=== PATIENT | male | born 1965 | race Caucasian/White ===

== ENCOUNTER 2022-12-05 19:14 | Emergency (ER) | payer BC ==
[2022-12-05 20:13] LABS: Glucose,Whole Blood 103 mg/dL (70-110)
[2022-12-05 20:41] LABS: Basophils % (A) 0 %; Eosinophils % (A) 2 %; HCT 44.5 % (39.0-53.0); HGB 15.4 gm/dL (13.0-17.5); Lymphocytes % (A) 21 %; MCH 32.3 pg (25.0-35.0); MCHC 34.6 g/dL (31.0-37.0); MCV 93.3 fL (80.0-100.0); Mean Platelet Volume 9.2; Monocytes % (A) 6 %; Neutrophils # (A) 10.4 k/uL (1.3-7.7); Neutrophils % (A) 68 %; Platelet Count 228 k/uL (150-450); RBC 4.77 m/uL (4.30-5.90); RDW 13.2 % (11.5-15.5); WBC 15.3 k/uL (3.8-10.6)
[2022-12-05 20:42] LABS: Basophils # (A) 0.1 k/uL (0-0.2); Eosinophils # (A) 0.4 k/uL (0-0.7); Lymphocytes # (A) 3.2 k/uL (1.0-4.8); Monocytes # (A) 0.9 k/uL (0-1.0)
[2022-12-05 20:55] LABS: Partial Thromboplastin Time 24.8 sec (22.0-30.0); Prothrombin Time 10.3 sec (9.0-12.0)
[2022-12-05 20:56] LABS: ALT 14 U/L (4-49); AST 20 U/L (17-59); African American GFR (CKD) >90 (>60 ml/min/1.73 sqM); Albumin 4.5 g/dL (3.5-5.0); Alkaline Phosphatase 80 U/L (38-126); Anion Gap 12 mmol/L; Blood Urea Nitrogen 11 mg/dL (9-20); Calcium 9.9 mg/dL (8.4-10.2); Carbon Dioxide 23 mmol/L (22-30); Chloride 107 mmol/L (98-107); Glucose 101 mg/dL (74-99); Non-African American GFR(CKD) >90 (>60 ml/min/1.73 sqM); Potassium 4.2 mmol/L (3.5-5.1); Sodium 142 mmol/L (137-145); Total Bilirubin 0.9 mg/dL (0.2-1.3); Total Protein 7.3 g/dL (6.3-8.2)
--- NOTE | 2022-12-05 21:24 | ED ---
General Adult HPI - General Chief complaint: Altered Mental Status Stated complaint: confused Time Seen by Provider: 12/05/22 21:06 Source: patient, family, RN notes reviewed Mode of arrival: ambulatory Limitations: no limitations - History of Present Illness Initial comments: 57-year-old male with no significant past medical history presents the emergency department with a chief complaint of altered mental status. Patient reports feeling increased fatigue and feeling brain fog the last day. He denies any recent sick contacts. She denies any fever, chills, cough, headache, vision changes, vision loss, dysuria, hematuria. Patient denies any injury or trauma. Patient reports that he was at home with a couple and just feels off. - Related Data Previous Rx's Medication Instructions Recorded Ciprofloxacin HCl [Cipro] 500 mg PO Q12HR #20 tablet 12/06/22 Tamsulosin [Flomax] 0.4 mg PO DAILY #7 cap 12/06/22 Allergies Allergy/AdvReac Type Severity Reaction Status Date / Time No Known Allergies Allergy Verified 12/05/22 19:32 Review of Systems ROS Statement: Those systems with pertinent positive or pertinent negative responses have been documented in the HPI. ROS Other: All systems not noted in ROS Statement are negative. Past Medical History Past Medical History: No Reported History Past Surgical History: No Surgical Hx Reported Smoking Status: Current every day smoker Past Alcohol Use History: None Reported Past Drug Use History: None Reported General Exam - General Exam Comments Initial Comments: General: Alert, in no acute distress Head: atraumatic normocephalic. Eyes PERRL, EOMI intact, mucous membranes moist Respiratory: Lungs clear to auscultation bilaterally Cardiovascular: Heart rate regular rate and rhythm Abdominal: Soft without guarding or rebound Extremities: Normal inspection with full range of motion and normal capillary refill Neuroogic: alert and oriented 3, CN II-XII intact, able to ambulate with steady gait Skin: warm dry and intact with normal color Limitations: no limitations Course Vital Signs 12/05/22 12/05/22 12/06/22 19:29 21:55 00:08 Temperature 98.2 F 99.4 F Pulse Rate 64 65 71 Respiratory 22 18 18 Rate Blood Pressure 124/107 148/89 O2 Sat by Pulse 98 99 97 Oximetry - Reevaluation(s) Reevaluation #1: 12/06/22 00:02 Pt reevaluated and updated on all results. Patient encouraged to go home with urinary catheter however patient is refusing at this time. Patient will be giv en ABX and Flomax in the emergency department. EKG Findings - EKG Comments: EKG Findings:: I interpreted the following: EKG performed at 20:50 rate 52 bpm and sinus bradycardia MT interval 133, QRS duration 83, QT/QTc 460/441 Medical Decision Making - Medical Decision Making Was pt. sent in by a medical professional or institution (, TEGAN, MORTGAGE CLOSING CLERK, urgent care, hospital, or longterm...) When possible be specific @ -[No] Did you speak to anyone other than the patient for history (EMS, parent, family, police, friend...)? What history was obtained from this source @ -Mother Did you review nursing and triage notes (agree or disagree)? Why? @ -[I reviewed and agree with nursing and triage notes] Were old charts reviewed (outside hosp., previous admission, EMS record, old EKG, old radiological studies, urgent care reports/EKG's, longterm records)? Report findings @ -[No old charts were reviewed] Differential Diagnosis (chest pain, altered mental status, abdominal pain women, abdominal pain men, vaginal bleeding, weakness, fever, dyspnea, syncope, headache, dizziness, GI bleed, back pain, seizure, CVA, palpatations, mental health, musculoskeletal)? @ -[not applicable] EKG interpreted by me (3pts min.). @ -[As above] X-rays interpreted by me (1pt min.). @ -[None done] CT interpreted by me (1pt min.). @ -Yes U/S interpreted by me (1pt. min.). @ -[None done] What testing was considered but not performed or refused? (CT, X-rays, U/S, labs)? Why? @ -[None] What meds were considered but not given or refused? Why? @ -[None] Did you discuss the management of the patient with other professionals (professionals i.e. TEGAN Mills, MORTGAGE CLOSING CLERK, lab, RT, psych nurse, social studies department chair, lining marker, teacher, money position officer, case worker)? Give summary @ -[No] Was smoking cessation discussed for >3mins.? @ -[No] Was critical care preformed (if so, how long)? @ -[No] Were there social determinants of health that impacted care today? How? (Homelessness, low income, unemployed, alcoholism, drug addiction, transportation, low edu. Level, literacy, decrease access to med. care, snf, rehab)? @ -[No] Was there de-escalation of care discussed even if they declined (Discuss DNR or withdrawal of care, Hospice)? DNR status @ -[No] What co-morbidities impacted this encounter? (DM, HTN, Smoking, COPD, CAD, Cancer, CVA, ARF, Chemo, Hep., AIDS, mental health diagnosis, sleep apnea, morbid obesity)? @ -[None] Was patient admitted / discharged? Hospital course, mention meds given and route, prescriptions, significant lab abnormalities, going to OR and other pertinent info. @ Discharge. This is a pleasant 57-year-old male accompanied by mother who presents with altered mental status. Patient had a thorough history and physical exam performed on the ED. Physical exam essentially unremarkable. Patient is alert and oriented 3. No focal neuro deficits noted on exam. Patient able to translate with a steady gait move all extremities freely. Patient had laboratory studies which revealed WBC 15.3, hemoglobin 15.4 coordination studies unremarkable chemistry unremarkable 11, creatinine 0.56 initial troponin negative Urinalysis with MODERATE leukocyte esterase, 45 wbc's, many urine bacteria. Urine culture pending CT head does not reveal any intracranial process. I discussed the results in detail with the patient verbalized understanding all questions were addressed. Patient was provided 1 L IV fluids, Flomax, Cipro in the emergency department. He was offered STD prophylactic treatment however he declined at the time of evaluation. Patient encouraged to be discharged with [place] catheter however mother refusing at the time of discharge. Patient provided Flomax prescription and recommend close follow-up with Dr. Pena, urologist. Return precautions discussed at length. Patient discharged in stable condition. Case discussed with Dr.Roskopp [facility] who agrees with plan of care Undiagnosed new problem with uncertain prognosis? @ -[No] Drug Therapy requiring intensive monitoring for toxicity (Heparin, Nitro, Insulin, Cardizem)? @ -[No] Were any procedures done? @ -[No] Diagnosis/symptom? @ -Altered mental status - Urinary tract infection Acute, or Chronic, or Acute on Chronic? @ -Acute Uncomplicated (without systemic symptoms) or Complicated (systemic symptoms)? @ -Uncomplicated Side effects of treatment? @ -[No] Exacerbation, Progression, or Severe Exacerbation? @ -[No] Poses a threat to life or bodily function? How? (Chest pain, [place], [place], pneumonia, PE, COPD, DKA, ARF, appy, cholecystitis, CVA, Diverticulitis, Homicidal, Suicidal, threat to staff... and all critical care pts) @ -Low likelihood - Lab Data Result diagrams: 12/05/22 20:34 12/05/22 20:34 Lab Results 12/05/22 12/05/22 12/05/22 Range/Units 20:10 20:34 20:34 WBC 15.3 H (3.8-10.6) k/uL RBC 4.77 (4.30-5.90) m/uL Hgb 15.4 (13.0-17.5) gm/dL Hct 44.5 (39.0-53.0) % MCV 93.3 (80.0-100.0) fL MCH 32.3 (25.0-35.0) pg MCHC 34.6 (31.0-37.0) g/dL RDW 13.2 (11.5-15.5) % Plt Count 228 (150-450) k/uL MPV 9.2 Neutrophils % 68 % Lymphocytes % 21 % Monocytes % 6 % Eosinophils % 2 % Basophils % 0 % Neutrophils # 10.4 H (1.3-7.7) k/uL Lymphocytes # 3.2 (1.0-4.8) k/uL Monocytes # 0.9 (0-1.0) k/uL Eosinophils # 0.4 (0-0.7) k/uL Basophils # 0.1 (0-0.2) k/uL PT 10.3 (9.0-12.0) sec INR 1.0 (<1.2) APTT 24.8 (22.0-30.0) sec Sodium (137-145) mmol/L Potassium (3.5-5.1) mmol/L Chloride (98-107) mmol/L Carbon Dioxide (22-30) mmol/L Anion Gap mmol/L BUN (9-20) mg/dL Creatinine (0.66-1.25) mg/dL Est GFR (CKD-EPI)AfAm (>60 ml/min/1.73 sqM) Est GFR (CKD-EPI)NonAf (>60 ml/min/1.73 sqM) Glucose (74-99) mg/dL POC Glucose (mg/dL) 103 (70-110) mg/dL POC Glu Rn Travel ID Cheri Lewis Calcium (8.4-10.2) mg/dL Total Bilirubin (0.2-1.3) mg/dL AST (17-59) U/L ALT (4-49) U/L Alkaline Phosphatase (38-126) U/L Troponin I (0.000-0.034) ng/mL Total Protein (6.3-8.2) g/dL Albumin (3.5-5.0) g/dL Urine Color Urine Appearance (Clear) Urine pH (5.0-8.0) Ur Specific [place] (1.001-1.035) Urine Protein (Negative) Urine Glucose (UA) (Negative) Urine Ketones (Negative) Urine Blood (Negative) Urine Nitrite (Negative) Urine Bilirubin (Negative) Urine Urobilinogen (<2.0) mg/dL Ur Leukocyte Esterase (Negative) Urine RBC (0-5) /hpf Urine WBC (0-5) /hpf Ur Squamous Epith Cells (0-4) /hpf Urine Bacteria (None) /hpf Urine Mucus (None) /hpf Urine Opiates Screen (NotDetected) Ur Oxycodone Screen (NotDetected) Urine Methadone Screen (NotDetected) Ur Propoxyphene Screen (NotDetected) Ur Barbiturates Screen (NotDetected) U Tricyclic Antidepress (NotDetected) Ur Phencyclidine Scrn (NotDetected) Ur Amphetamines Screen (NotDetected) U Methamphetamines Scrn (NotDetected) U Benzodiazepines Scrn (NotDetected) Urine Cocaine Screen (NotDetected) U Marijuana (THC) Screen (NotDetected) 12/05/22 12/05/22 12/05/22 Range/Units 20:34 20:34 22:53 WBC (3.8-10.6) k/uL RBC (4.30-5.90) m/uL Hgb (13.0-17.5) gm/dL Hct (39.0-53.0) % MCV (80.0-100.0) fL MCH (25.0-35.0) pg MCHC (31.0-37.0) g/dL RDW (11.5-15.5) % Plt Count (150-450) k/uL MPV Neutrophils % % Lymphocytes % % Monocytes % % Eosinophils % % Basophils % % Neutrophils # (1.3-7.7) k/uL Lymphocytes # (1.0-4.8) k/uL Monocytes # (0-1.0) k/uL Eosinophils # (0-0.7) k/uL Basophils # (0-0.2) k/uL PT (9.0-12.0) sec INR (<1.2) APTT (22.0-30.0) sec Sodium 142 (137-145) mmol/L Potassium 4.2 (3.5-5.1) mmol/L Chloride 107 (98-107) mmol/L Carbon Dioxide 23 (22-30) mmol/L Anion Gap 12 mmol/L BUN 11 (9-20) mg/dL Creatinine 0.56 L (0.66-1.25) mg/dL Est GFR (CKD-EPI)AfAm >90 (>60 ml/min/1.73 sqM) Est GFR (CKD-EPI)NonAf >90 (>60 ml/min/1.73 sqM) Glucose 101 H (74-99) mg/dL POC Glucose (mg/dL) (70-110) mg/dL POC Glu Rn Travel ID Calcium 9.9 (8.4-10.2) mg/dL Total Bilirubin 0.9 (0.2-1.3) mg/dL AST 20 (17-59) U/L ALT 14 (4-49) U/L Alkaline Phosphatase 80 (38-126) U/L Troponin I <0.012 (0.000-0.034) ng/mL Total Protein 7.3 (6.3-8.2) g/dL Albumin 4.5 (3.5-5.0) g/dL Urine Color Yellow Urine Appearance Cloudy (Clear) Urine pH 5.5 (5.0-8.0) Ur Specific [place] 1.023 (1.001-1.035) Urine Protein Trace H (Negative) Urine Glucose (UA) Negative (Negative) Urine Ketones 1+ H (Negative) Urine Blood Negative (Negative) Urine Nitrite Positive (Negative) Urine Bilirubin Negative (Negative) Urine Urobilinogen <2.0 (<2.0) mg/dL Ur Leukocyte Esterase Moderate H (Negative) Urine RBC 1 (0-5) /hpf Urine WBC 45 H (0-5) /hpf Ur Squamous Epith Cells 4 (0-4) /hpf Urine Bacteria Many H (None) /hpf Urine Mucus Occasional H (None) /hpf Urine Opiates Screen Not Detected (NotDetected) Ur Oxycodone Screen Not Detected (NotDetected) Urine Methadone Screen Not Detected (NotDetected) Ur Propoxyphene Screen Not Detected (NotDetected) Ur Barbiturates Screen Not Detected (NotDetected) U Tricyclic Antidepress Not Detected (NotDetected) Ur Phencyclidine Scrn Not Detected (NotDetected) Ur Amphetamines Screen Not Detected (NotDetected) U Methamphetamines Scrn Not Detected (NotDetected) U Benzodiazepines Scrn Not Detected (NotDetected) Urine Cocaine Screen Not Detected (NotDetected) U Marijuana (THC) Screen Detected H (NotDetected) Disposition Clinical Impression: Urinary tract infection, Altered mental status Disposition: HOME SELF-CARE Condition: Stable Instructions (If sedation given, give patient instructions): Altered Mental Status (ED) Additional Instructions: Please take antibiotics as prescribed Please return to the nearest emergency department symptoms worsen or persist Prescriptions: Ciprofloxacin HCl [Cipro] 500 mg PO Q12HR #20 tablet Tamsulosin [Flomax] 0.4 mg PO DAILY #7 cap Is patient prescribed a controlled substance at d/c from ED?: No Referrals: None,Stated [Primary Care Provider] - 1-2 days Joshua Stoner MD [STAFF PHYSICIAN] - 1-2 days Forms: Work/School Release Time of Disposition: 23:43
--- NOTE | 2022-12-05 21:56 | CT ---
EXAMINATION TYPE: CT brain wo con DATE OF EXAM: 12/05/2022 HISTORY: AMS, confusion CT DLP: 1139.4 mGycm. Automated Exposure Control for Dose Reduction was Utilized. TECHNIQUE: CT scan of the head is performed without contrast. COMPARISON: None. FINDINGS: There is no acute intracranial hemorrhage or midline shift identified. No definite acute at tenuation defect. The calvarium is intact. The globes are intact. Bilateral partial opacification of the maxillary sinuses; the paranasal sinuses are otherwise clear. The right middle ear cavity and mastoid sinus air cells are clear. There is partial opacification of the left middle ear cavity and mastoid sinus air cells. IMPRESSION: No acute intracranial process. Partial opacification of the left middle ear cavity. Bilateral partial opacification of the maxillary sinuses.
[2022-12-05 22:07] VITALS: RESP 18
[2022-12-05 23:19] LABS: Appearance,Urine Cloudy (Clear); Bacteria,Urine Many /hpf; Bilirubin,Urine Negative (Negative); Blood,Urine Negative (Negative); Color,Urine Yellow; Glucose,Urine (UA) Negative (Negative); Ketones,Urine 1+ (Negative); Leukocyte Esterase,Urine Moderate (Negative); Mucus,Urine Occasional /hpf; Nitrite,Urine Positive (Negative); PH, Urine 5.5 (5.0-8.0); Protein,Urine Trace (Negative); RBC,Urine 1 /hpf (0-5); Specific Gravity,Urine 1.023 (1.001-1.035); Squamous Epithelial Cell,Urine 4 /hpf (0-4); Urobilinogen,Urine <2.0 mg/dL (<2.0); WBC,Urine 45 /hpf (0-5)
[2022-12-05 23:23] LABS: Amphetamine Screen,Urine Not Detected (NotDetected); Barbiturate Screen,Urine Not Detected (NotDetected); Benzodiazepines Screen,Urine Not Detected (NotDetected); Cocaine Screen,Urine Not Detected (NotDetected); Methadone Screen, Urine Not Detected (NotDetected); Opiate Screen,Urine Not Detected (NotDetected); Oxycodone Screen, Urine Not Detected (NotDetected); Phencyclidine Screen,Urine Not Detected (NotDetected); Tricyclic Antidepressant,Urine Not Detected (NotDetected); Urn Cannabinoid Scrn Detected (NotDetected)
[2022-12-06] MEDS ORDERED: TAMSULOSIN 0.4 MG CAP.ER.24H PO STA (00:01)
[2022-12-06] MEDS ORDERED: CIPROFLOXACIN HCL 500 MG TAB PO STA (00:01)
[2022-12-06 00:23] VITALS: BP 148/89; PULSE 71; TEMP 99.4
== END 2022-12-06 00:20 | disposition home or self-care (01) ==
LOC: EC 19:14
DX: N39.0 Urinary tract infection, site not specified (principal); R41.82 Altered mental status, unspecified; R00.1 Bradycardia, unspecified; F17.200 Nicotine dependence, unspecified, uncomplicated
CPT/HCPCS: 36415; 70450; 80053; 80306; 81001; 84484; 85025; 85610; 85730; 87086; 93005; 99285

== ENCOUNTER 2022-12-14 17:48 | Emergency (ER) | payer BC ==
[2022-12-14 18:11] VITALS: RESP 18
--- NOTE | 2022-12-14 19:16 | ED ---
General Adult HPI - General Source: patient Mode of arrival: ambulatory Limitations: no limitations <Ga Miller - Last Filed: 12/15/22 04:33> <Hira Daniels - Last Filed: 12/15/22 10:34> - General Chief complaint: Psychiatric Symptoms Stated complaint: Mental Health Time Seen by Provider: 12/14/22 18:38 - History of Present Illness Initial comments: 57-year-old male with a history of developmental delay presenting to the ED with a chief complaint of psych problem. Patient discharged on 12/13/22. Review of notes at that time shows patient was evaluated from psych who initially recommended inpatient psychiatry however later declined due to underlying cognitive impairment and feeling as if the patient does not have decision making capacity. However, patient was also evaluated by Dr. Lopez of neurology who notes that patient is highly functional and feels patient is ableto have his own decision making capacity. Patient was then subsequently discharged and was supposed to have outpatient [facility] appointment on 12/16/22. Patient presenting again today with mother who reports that the patient has been acting erratically. States that the patient is saying things that are not usual of him. States that when she saw the patient today was found on the back porch crying. Patiently currently denies any suicidal or homicidal ideation however patient did note to triage nurse that he didn't feel suicidal week ago and tried to hold his breath to kill himself. Mother reports that she does not feel safe going back home with him. Denies hallucinations. No chest pain or shortness of breath. No abdominal pain. No urinary symptoms. Note changes in bowel habits. No other complaints. (Ga Miller) - Related Data Previous Rx's Medication Instructions Recorded Cyanocobalamin (Vitamin B-12) 1,000 mcg PO DAILY #30 tablet 12/13/22 [Vitamin B-12] Folic Acid 1 mg PO DAILY #30 tablet 12/13/22 risperiDONE [RisperDAL] 1 mg PO BID #60 tablet 12/13/22 Allergies Allergy/AdvReac Type Severity Reaction Status Date / Time No Known Allergies Allergy Verified 12/14/22 17:57 Review of Systems ROS Other: All systems not noted in ROS Statement are negative. <Ga Miller - Last Filed: 12/15/22 04:33> ROS Other: All systems not noted in ROS Statement are negative. <Hira Daniels - Last Filed: 12/15/22 10:34> ROS Statement: Those systems with pertinent positive or pertinent negative responses have been documented in the HPI. Past Medical History Past Medical History: No Reported History Additional Past Medical History / Comment(s): UTI, Urinary retention History of Any Multi-Drug Resistant Organisms: None Reported Past Surgical History: No Surgical Hx Reported Past Psychological History: Bipolar, Depression Smoking Status: Current every day smoker Past Alcohol Use History: None Reported Past Drug Use History: None Reported <Ga Miller - Last Filed: 12/15/22 04:33> General Exam Limitations: no limitations General appearance: alert, in no apparent distress Eye exam: Present: normal appearance Neck exam: Present: normal inspection Respiratory exam: Present: normal lung sounds bilaterally Cardiovascular Exam: Present: regular rate, normal rhythm GI/Abdominal exam: Present: soft (No tenderness to palpation. no rebound guardi ng or rigidity.), normal bowel sounds Neurological exam: Present: alert, oriented X3 <Ga Miller - Last Filed: 12/15/22 04:33> Course Vital Signs 12/14/22 12/15/22 17:52 01:08 Temperature 98.5 F 97.3 F L Pulse Rate 105 H 67 Respiratory 18 18 Rate Blood Pressure 142/94 130/72 O2 Sat by Pulse 96 98 Oximetry Medical Decision Making <Ga Miller - Last Filed: 12/15/22 04:33> <Hira Daniels - Last Filed: 12/15/22 10:34> - Medical Decision Making Was pt. sent in by a medical professional or institution (, PA, M48 M60 ARMOR CREWMAN, urgent care, hospital, or fci...) When possible be specific @ -No Did you speak to anyone other than the patient for history (EMS, parent, family, police, friend...)? What history was obtained from this source @ -No Did you review nursing and triage notes (agree or disagree)? Why? @ -I reviewed and agree with nursing and triage notes Were old charts reviewed (outside hosp., previous admission, EMS record, old EKG, old radiological studies, urgent care reports/EKG's, fci records)? Report findings @ -No old charts were reviewed Differential Diagnosis (chest pain, altered mental status, abdominal pain women, abdominal pain men, vaginal bleeding, weakness, fever, dyspnea, syncope, headache, dizziness, GI bleed, back pain, seizure, CVA, palpatations, mental health, musculoskeletal)? @ -Differential Mental Health Depression, anxiety, bipolar, psychosis, schizophrenia, borderline personality, situational depression, adjustment disorder, behavioral disorder, brain tumor, malingering, substance abuse, encephalopathy, medication reaction, dementia, hypothyroidism, degenerative neurologic disorder, lupus.... This is not meant to be all-inclusive list EKG interpreted by me (3pts min.). @ -None X-rays interpreted by me (1pt min.). @ -None done CT interpreted by me (1pt min.). @ -None done U/S interpreted by me (1pt. min.). @ -None done What testing was considered but not performed or refused? (CT, X-rays, U/S, labs)? Why? @ -None What meds were considered but not given or refused? Why? @ -None Did you discuss the management of the patient with other professionals (professionals i.e. , PA, M48 M60 ARMOR CREWMAN, lab, RT, psych nurse, web content & social media manager, compensator worker, teacher, service officer, registered nurse hh case manager)? Give summary @ -No Was smoking cessation discussed for >3mins.? @ -No Was critical care preformed (if so, how long)? @ -No Were there social determinants of health that impacted care today? How? (Homelessness, low income, unemployed, alcoholism, drug addiction, transportation, low edu. Level, literacy, decrease access to med. care, retirement, rehab)? @ -No Was there de-escalation of care discussed even if they declined (Discuss DNR or withdrawal of care, Hospice)? DNR status @ -No What co-morbidities impacted this encounter? (DM, HTN, Smoking, COPD, CAD, Cancer, CVA, ARF, Chemo, Hep., AIDS, mental health diagnosis, sleep apnea, morbid obesity)? @ -None Was patient admitted / discharged? Hospital course, mention meds given and route, prescriptions, significant lab abnormalities, going to OR and other pertinent info. @ -Pending Disposition of patient pending EPS evaluation. Patient will be evaluated tomorrow. At this time, medically cleared. ([place]) Patient seen by mental health services with plan for discharge I did discuss case with Silvina for mental health services who does recommend discharge. Patient evaluated. Patient denies suicidal ideation and does contract for safety. Diagnosis: Depression Acute (Hira Daniels) Disposition <Ga Miller - Last Filed: 12/15/22 04:33> Is patient prescribed a controlled substance at d/c from ED?: No Time of Disposition: 10:34 <Hira Daniels - Last Filed: 12/15/22 10:34> Clinical Impression: Depression Disposition: HOME SELF-CARE Condition: Stable Instructions (If sedation given, give patient instructions): Depression (ED), Help Prevent Suicide (ED) Additional Instructions: Please follow-up with primary care physician in the next day or 2 for recheck. Please follow-up with mental health services as directed. Return for thoughts of self-harm, worsening symptoms or other concerns. Referrals: Gonzalo Howard MD [STAFF PHYSICIAN] - 1-2 days
[2022-12-15 01:23] VITALS: TEMP 97.3
[2022-12-15 11:07] VITALS: BP 137/84; PULSE 68
== END 2022-12-15 11:01 | disposition home or self-care (01) ==
LOC: EC 17:48
DX: F32.A Depression, unspecified (principal); F17.200 Nicotine dependence, unspecified, uncomplicated
CPT/HCPCS: 82075; 99285

== ENCOUNTER 2022-12-17 14:48 | Inpatient (IN) | payer BC ==
--- NOTE | 2022-12-17 19:46 | ED ---
Psych HPI - General Source: patient, RN notes reviewed, old records reviewed Mode of arrival: ambulatory Limitations: no limitations - History of Present Illness MD Complaint: altered mental status -: unknown Associated Psychiatric Symptoms: homicidal ideation, racing thoughts, auditory hallucinations, visual hallucinations, delusions Quality: constant Improves With: none Worsens With: none Context: not taking psychiatric medications, significant life stressor Associated Symptoms: denies other symptoms Treatments Prior to Arrival: placed on mental health hold <Himanshu Tran - Last Filed: 12/17/22 22:02> <Kiel Castillo - Last Filed: 12/18/22 00:33> <Dom Carmen - Last Filed: 12/18/22 13:15> - General Chief Complaint: Psychiatric Symptoms Stated Complaint: Mental Health Time Seen by Provider: 12/17/22 18:08 - History of Present Illness Initial Comments: This is a 57-year-old male to the emergency department for evaluation. Patient Dese for evaluation of significant psychosis. Patient has been recently this significant psychiatric illness with multiple ER visits in the past week. Patient refuses to participate in history of present illness here in the ER (Himanshu Tran) - Related Data Previous Rx's Medication Instructions Recorded Cyanocobalamin (Vitamin B-12) 1,000 mcg PO DAILY #30 tablet 12/13/22 [Vitamin B-12] Folic Acid 1 mg PO DAILY #30 tablet 12/13/22 risperiDONE [RisperDAL] 1 mg PO BID #60 tablet 12/13/22 Allergies Allergy/AdvReac Type Severity Reaction Status Date / Time No Known Allergies Allergy Verified 12/17/22 15:02 Review of Systems ROS Other: All systems not noted in ROS Statement are negative. <Himanshu Tran - Last Filed: 12/17/22 22:02> ROS Other: All systems not noted in ROS Statement are negative. <Kiel Castillo - Last Filed: 12/18/22 00:33> ROS Other: All systems not noted in ROS Statement are negative. <Dom Carmen - Last Filed: 12/18/22 13:15> ROS Statement: Those systems with pertinent positive or pertinent negative responses have been documented in the HPI. Past Medical History Past Medical History: No Reported History Additional Past Medical History / Comment(s): UTI, Urinary retention History of Any Multi-Drug Resistant Organisms: None Reported Past Surgical History: No Surgical Hx Reported Past Psychological History: Bipolar, Depression Smoking Status: Current every day smoker Past Alcohol Use History: None Reported Past Drug Use History: None Reported <Himanshu Tran - Last Filed: 12/17/22 22:02> General Exam Limitations: no limitations General appearance: alert, in no apparent distress Head exam: Present: atraumatic, normocephalic, normal inspection Eye exam: Present: normal appearance, PERRL, EOMI. Absent: scleral icterus, conjunctival injection, periorbital swelling ENT exam: Present: normal exam, mucous membranes moist Neck exam: Present: normal inspection. Absent: tenderness, meningismus, lymphadenopathy Respiratory exam: Present: normal lung sounds bilaterally. Absent: respiratory distress, wheezes, rales, rhonchi, stridor Cardiovascular Exam: Present: regular rate, normal rhythm, normal heart sounds. Absent: systolic murmur, diastolic murmur, rubs, gallop, clicks GI/Abdominal exam: Present: soft, normal bowel sounds. Absent: distended, tenderness, guarding, rebound, rigid Extremities exam: Present: normal inspection, full ROM, normal capillary refill. Absent: tenderness, pedal edema, joint swelling, calf tenderness Back exam: Present: normal inspection Neurological exam: Present: alert, oriented X3, CN II-XII intact Psychiatric exam: Present: normal affect, normal mood Skin exam: Present: warm, dry, intact, normal color. Absent: rash <Himanshu Tran - Last Filed: 12/17/22 22:02> Course <Himanshu Tran - Last Filed: 12/17/22 22:02> Vital Signs 12/17/22 12/18/22 15:02 12:00 Temperature 98.9 F Pulse Rate 90 67 Respiratory 18 16 Rate Blood Pressure 116/64 123/83 O2 Sat by Pulse 97 97 Oximetry - Reevaluation(s) Reevaluation #1: 12/17/22 22:03 Medical record is reviewed (Himanshu Tran) Reevaluation #2: 12/17/22 22:03 Medically clear for psychiatric evaluation (Himanshu Tran) Procedures - Restraint - Face to Face Restraint Occurrence 1 Patient's Immediate Situation: Endangers self safety, Endangers others' safety Patient's Reaction to the Intervention: Uncooperative Patient's Medical & Behavioral Condition: Alert, Agitated Need to Continue or Terminate Restraint or Seclusion: Continue Face to Face Eval of Restraint Date: 12/17/22 Face to Face Eval of Restraint Time: 21:30 <Kiel Castillo - Last Filed: 12/18/22 00:33> Disposition <Himanshu Tran - Last Filed: 12/17/22 22:02> <Kiel Castillo - Last Filed: 12/18/22 00:33> Is patient prescribed a controlled substance at d/c from ED?: No Time of Disposition: 13:15 <Dom Carmen - Last Filed: 12/18/22 13:15> Clinical Impression: Psychosis, Depression Disposition: ADMITTED IP TO THIS HOSP Condition: Stable Referrals: None,Stated [Primary Care Provider] - 1-2 days
[2022-12-18] MEDS ORDERED: MAG HYDROX/AL HYDROX/SIMETH 30 ML CUP PO PRN (17:29)
[2022-12-18] MEDS ORDERED: MAGNESIUM HYDROXIDE 2,400 MG/30 ML CUP PO PRN (17:29)
[2022-12-18] MEDS ORDERED: ACETAMINOPHEN TAB 325 MG TAB PO PRN (17:29)
[2022-12-18] MEDS ORDERED: LORazepam 2 MG/ML INJ IM PRN (17:31)
[2022-12-18] MEDS ORDERED: LORazepam 0.5 MG TAB PO PRN (17:31)
[2022-12-18] MEDS ORDERED: OLANZapine 10 MG VIAL IM PRN (17:31)
[2022-12-18] MEDS: OLANZapine 5 MG TAB PO PRN (20:39)
[2022-12-19] MEDS: NICOTINE 14MG/24HR PATCH TRANSDERM SCH (08:18)
[2022-12-19] MEDS: FOLIC ACID 1 MG TAB PO SCH (08:18)
[2022-12-19 10:36] LABS: Basophils # (A) 0.1 k/uL (0-0.2); Basophils % (A) 1 %; Eosinophils # (A) 0.5 k/uL (0-0.7); Eosinophils % (A) 5 %; HGB 15.2 gm/dL (13.0-17.5); Lymphocytes % (A) 31 %; MCH 32.6 pg (25.0-35.0); MCHC 34.6 g/dL (31.0-37.0); MCV 94.3 fL (80.0-100.0); Mean Platelet Volume 8.6; Monocytes # (A) 0.7 k/uL (0-1.0); Monocytes % (A) 7 %; Neutrophils # (A) 5.3 k/uL (1.3-7.7); Neutrophils % (A) 55 %; Platelet Count 234 k/uL (150-450); RBC 4.66 m/uL (4.30-5.90); RDW 12.4 % (11.5-15.5); WBC 9.8 k/uL (3.8-10.6)
[2022-12-19 10:57] LABS: ALT 20 U/L (4-49); AST 20 U/L (17-59); African American GFR (CKD) >90 (>60 ml/min/1.73 sqM); Albumin 4.2 g/dL (3.5-5.0); Alkaline Phosphatase 64 U/L (38-126); Anion Gap 9 mmol/L; Blood Urea Nitrogen 15 mg/dL (9-20); Carbon Dioxide 28 mmol/L (22-30); Chloride 105 mmol/L (98-107); Glucose 86 mg/dL (74-99); Non-African American GFR(CKD) >90 (>60 ml/min/1.73 sqM); Potassium 4.9 mmol/L (3.5-5.1); Sodium 142 mmol/L (137-145); Total Bilirubin 0.6 mg/dL (0.2-1.3)
--- NOTE | 2022-12-19 14:05 | P.HP ---
Psychiatric H&P - . H&P Date: 12/19/22 History & Physical: Allergies Allergy/AdvReac Type Severity Reaction Status Date / Time No Known Allergies Allergy Verified 12/18/22 13:36 Vital Signs Temp 98.5 F 12/18/22 17:50 Pulse 56 L 12/18/22 17:50 Resp 16 12/18/22 17:50 BP 159/75 12/18/22 17:50 Pulse Ox 97 12/18/22 12:00 FiO2 Laboratory Last Values WBC 9.8 k/uL (3.8-10.6) 12/19/22 09:56 RBC 4.66 m/uL (4.30-5.90) 12/19/22 09:56 Hgb 15.2 gm/dL (13.0-17.5) 12/19/22 09:56 Hct 44.0 % (39.0-53.0) 12/19/22 09:56 MCV 94.3 fL (80.0-100.0) 12/19/22 09:56 MCH 32.6 pg (25.0-35.0) 12/19/22 09:56 MCHC 34.6 g/dL (31.0-37.0) 12/19/22 09:56 RDW 12.4 % (11.5-15.5) 12/19/22 09:56 Plt Count 234 k/uL (150-450) 12/19/22 09:56 MPV 8.6 12/19/22 09:56 Neutrophils % 55 % 12/19/22 09:56 Lymphocytes % 31 % 12/19/22 09:56 Monocytes % 7 % 12/19/22 09:56 Eosinophils % 5 % 12/19/22 09:56 Basophils % 1 % 12/19/22 09:56 Neutrophils # 5.3 k/uL (1.3-7.7) 12/19/22 09:56 Lymphocytes # 3.0 k/uL (1.0-4.8) 12/19/22 09:56 Monocytes # 0.7 k/uL (0-1.0) 12/19/22 09:56 Eosinophils # 0.5 k/uL (0-0.7) 12/19/22 09:56 Basophils # 0.1 k/uL (0-0.2) 12/19/22 09:56 Sodium 142 mmol/L (137-145) 12/19/22 09:56 Potassium 4.9 mmol/L (3.5-5.1) 12/19/22 09:56 Chloride 105 mmol/L (98-107) 12/19/22 09:56 Carbon Dioxide 28 mmol/L (22-30) 12/19/22 09:56 Anion Gap 9 mmol/L 12/19/22 09:56 BUN 15 mg/dL (9-20) 12/19/22 09:56 Creatinine 0.58 mg/dL (0.66-1.25) L 12/19/22 09:56 Est GFR (CKD-EPI)AfAm >90 (>60 ml/min/1.73 sqM) 12/19/22 09:56 Est GFR (CKD-EPI)NonAf >90 (>60 ml/min/1.73 sqM) 12/19/22 09:56 Glucose 86 mg/dL (74-99) 12/19/22 09:56 Calcium 10.0 mg/dL (8.4-10.2) 12/19/22 09:56 Total Bilirubin 0.6 mg/dL (0.2-1.3) 12/19/22 09:56 AST 20 U/L (17-59) 12/19/22 09:56 ALT 20 U/L (4-49) 12/19/22 09:56 Alkaline Phosphatase 64 U/L (38-126) 12/19/22 09:56 Total Protein 7.0 g/dL (6.3-8.2) 12/19/22 09:56 Albumin 4.2 g/dL (3.5-5.0) 12/19/22 09:56 TSH 1.530 mIU/L (0.465-4.680) 12/19/22 09:56 Coronavirus (PCR) Not Detected (Not Detectd) 12/18/22 16:04 12/19/22 12:36 IDENTIFYING DATA: Patient is a 37-year-old male, currently homeless HPI: Patient presented to the hospital yesterday and was seen in the ER. Apparently patient was having altered mental status homicidal ideations auditory and visual hallucinations. Patient was apparently seen multiple times in the ER recently. Patient was uncooperative and was also in restraints in the ER. Patient was admitted to the mental health unit yesterday and apparently signed voluntary. Patient correctly knew his name H He was [facility] knew the correct date. He came was seen laying in his bed today was agreeable lead technical writer. He appeared to be fairly concrete, states that he came in "because I'm homeless". He was mumbling and somewhat worried and coherent. He claims that he needs help "with everything". He claims that he has been having "bad mental health". He states that he has been feeling depressed and angry/mouth, endorsing anxiety as well. He is endorsing mood swings. Claims that he is hearing voices however did not describe what they are saying to him. Claims that his sleep has been on and off, appetite is fair. Denying any visual hallucinations.Patient denies any suicidal or h omicidal ideations intent or plan. Patient denies any flight of ideas racing thoughts and increased in goal directed behavior. Patient admits to using cigarettes regularly and marijuana frequently. PAST PSYCHIATRIC HISTORY: Patient states that he has no previous psychiatric history. Patient denies being on any psychiatric medications. Patient denies any previous psychiatric hospitalizations. Patient denies any psychiatric outpatient follow-up. Patient denies any history of suicide attempts in the past. Past Medical History: No Reported History Additional Past Medical History / Comment(s): UTI, Urinary retention History of Any Multi-Drug Resistant Organisms: None Reported Past Surgical History: No Surgical Hx Reported Past Psychological History: Bipolar, Depression Smoking Status: Current every day smoker Past Alcohol Use History: None Reported Past Drug Use History: None Reported ALLERGIES: as per EMR CHEMICAL DEPENDENCY HISTORY: as per HPI FAMILY PSYCHIATRIC/SUBSTANCE USE HISTORY: denies SOCIAL HISTORY: Patient was born and raised in [facility]. He states that he completed high school. States that he is currently homeless at this time. He claims that he went to long term for a "misdemeanor" several years ago. MENTAL STATUS EXAM: General Appearance: Patient appears to be mildly overweight, balding, stated age is alert, directable, and attempts to cooperate. Patient appears to have poor hygiene and grooming. Behavior: Patient is seated without any agitated behavior. Attempts to cooperate Speech: Patient's speech is mumbling and at times incoherent Mood/Affect: Patient reports their mood is depressed, affect is congruent and constricted. Suicidality/Homicidality: Patient denies having any homicidal ideation intent or plan. Denies any suicidal ideations intent or plan Perceptions: Patient denies any visual hallucinations he admits to hearing voices. Though content/process: Mumbling, rambling at times. Illogical. Memory and concentration: AOX3, grossly intact for the purposes of this session. Can spell "WORLD" backwards Judgment and insight: poor STRENGTHS/WEAKNESSES: strength is that patient is resilient. Weakness is that patient has poor judgment and is impulsive INTELLECT: average IMPRESSIONS: Psychosis unspecified r/o intellecutal disability Nicotine dependence Cannabis use disorder PLAN: -Patient is admitted under voluntary status to MHU for stabilization of psychiatric symptoms and safety. Patient has signed adult voluntary form and medication consent and is placed in patient's chart. -Medications : Zyprexa 5 mg daily at bedtime for mood stabilization/psychosis/sleep, Zoloft 50 mg daily at bedtime for mood/anxiety -zyprexa PRN for agitation/aggression -Patient was informed of the risks, benefits and side effects of the medication and patient verbally consented to taking the medications. Patient signed med consent form and was placed in chart. -Internal Medicine consult to perform medical evaluation and physical. -NRT - nicotine patch -SW on board for discharge planning. Encourage patient to participate in groups to work on coping skills. 12/19/22 12:47 12/19/22 14:00
[2022-12-19 14:16] VITALS: BMI 38.7
[2022-12-19] MEDS: SERTRALINE 50 MG TAB PO SCH (20:32)
[2022-12-19] MEDS: OLANZapine 5 MG TAB PO SCH (20:32)
[2022-12-20] MEDS: FOLIC ACID 1 MG TAB PO SCH (07:47)
[2022-12-20] MEDS: NICOTINE 14MG/24HR PATCH TRANSDERM SCH (08:24)
--- NOTE | 2022-12-20 13:25 | P.PN ---
Progress Note - Text Progress Note Date: 12/20/22 Interval history: patient was seen today and was agreeable to speak to senior copywriter. Patient claims t hat he slept fairly last July. He continues to have very poor insight and judgment. He was fairly concrete today and got into not elaborate much on how he is feeling. He redirected some questions back at senior copywriter. He is fairly evasive at times during the conversation. He was not endorsing any paranoia or delusions at this time. Claims that he is eating meals. He is not interested in going to many groups. Continues to state that he is feeling somewhat depressed. He is denying any suicidal or homicidal ideations intent or plan. Denying any auditory or visual hallucinations. Denying any side effects from medications. Mental status examination: General Appearance: Patient appears to be mildly overweight, balding, stated age is alert, directable, and attempts to cooperate. Patient appears to have mildly improving hygiene and grooming. Behavior: Patient is seated without any agitated behavior. Attempts to cooperate Speech: Patient's speech is mumbling at times, improving mildly Mood/Affect: Patient reports their mood is depressed, affect is congruent and constricted. Suicidality/Homicidality: Patient denies having any homicidal ideation intent or plan. Denies any suicidal ideations intent or plan Perceptions: Patient denies any visual hallucinations he admits to hearing voices. Though content/process: Mumbling, rambling at times. More logical today. Memory and concentration: AOX3, grossly intact for the purposes of this session Judgment and insight: poor IMPRESSIONS: Psychosis unspecified r/o intellecutal disability Nicotine dependence Cannabis use disorder PLAN: -Patient is admitted under voluntary status to MHU for stabilization of psychiatric symptoms and safety. Patient has signed adult voluntary form and medication consent and is placed in patient's chart. -Medications : Zyprexa 5 mg daily at bedtime for mood stabilization/psychosis/sleep, Zoloft 50 mg daily at bedtime for mood/anxiety, we'll consider increasing tomorrow if needed. -zyprexa PRN for agitation/aggression -NRT - nicotine patch -SW on board for discharge planning. Encourage patient to participate in groups to work on coping skills.
[2022-12-20] MEDS ORDERED: WATER FOR INJECTION, STERILE 10 ML IV ONE (14:24)
--- NOTE | 2022-12-20 18:07 | P.MDCNMH ---
History of Present Illness H&P Date: 12/20/22 Chief Complaint: medical management 57 year old man who presented for mental health evaluation. He denies any medical history to me. Denies HTN, HLD, DM, hx of heart, liver, or kidney disease, strokes, or MIs. Gen: awake, alert HEENT: normocephalic, atraumatic, good hearing acuity, moist mucous membranes Resp: good air exchange, breathing comfortably with no accessory muscle use CVS: good distal perfusion x 4, GI: soft, NTTP, ND : no SPT, no CVAT, hendrickson catheter not present MSK: no pitting edema, no clubbing Neuro: non-focal, moving all extremities Psych: cooperative, euthymic mood Assessment/plan: Obesity, class II -Outpatient weight loss referral -Diet and exercise recommendations on discharge Patient's lab work was reviewed, CBC, basic metabolic panel, liver function tests, TSH, Covid are all within normal limits. Past Medical History Past Medical History: No Reported History Additional Past Medical History / Comment(s): UTI, Urinary retention History of Any Multi-Drug Resistant Organisms: None Reported Past Surgical History: No Surgical Hx Reported Past Psychological History: Bipolar, Depression Smoking Status: Current every day smoker Past Alcohol Use History: None Reported Past Drug Use History: None Reported Medications and Allergies Home Medications Medication Instructions Recorded Confirmed Type Cyanocobalamin (Vitamin B-12) 1,000 mcg PO DAILY #30 tablet 12/13/22 12/18/22 Rx [Vitamin B-12] Folic Acid 1 mg PO DAILY #30 tablet 12/13/22 12/18/22 Rx risperiDONE [RisperDAL] 1 mg PO BID #60 tablet 12/13/22 12/18/22 Rx Allergies Allergy/AdvReac Type Severity Reaction Status Date / Time No Known Allergies Allergy Verified 12/18/22 13:36 Physical Exam Osteopathic Statement: *. No significant issues noted on an osteopathic structural exam other than those noted in the History and Physical/Consult. Vitals: Vital Signs Temp Pulse Resp BP Pulse Ox 12/20/22 06:43 98 F 52 L 14 123/59 98 Cranial Nerve Examination - Cranial Nerves Cranial Nerve II- Optic: Intact Cranial Nerve III- Oculomotor: Intact Cranial Nerve IV- Trochlear: Intact Cranial Nerve V- Trigeminal: Intact Cranial Nerve - Abducens: Intact Cranial Nerve VII- Facial: Intact Cranial Nerve VIII- Auditory: Intact Cranial Nerve IX- Glossopharyngeal: Intact Cranial Nerve X- Vagus: Intact Cranial Nerve XI- Accessory: Intact Cranial Nerve XII- Hypoglossal: Intact Results CBC & Chem 7: 12/19/22 09:56 12/19/22 09:56
[2022-12-20] MEDS: SERTRALINE 50 MG TAB PO SCH (20:36)
[2022-12-20] MEDS: OLANZapine 5 MG TAB PO SCH (20:36)
[2022-12-21] MEDS: NICOTINE 14MG/24HR PATCH TRANSDERM SCH (09:53)
[2022-12-21] MEDS: FOLIC ACID 1 MG TAB PO SCH (09:53)
--- NOTE | 2022-12-21 11:23 | P.PN ---
Progress Note - Text Progress Note Date: 12/21/22 Interval history: Patient was seen lying in bed this morning and was directable and agreeable to speak with investment underwriter. Patient apparently took an Ativan last night and an extra dose of Zyprexa. Patient was covering his head with blankets. He continues to mumble, being evasive and uncooperative with investment underwriter. He claims that he did not sleep well last night. He is agreeable to have his medications changed. He is fairly concrete, did not report any other problems with his medications. He con tinues to have fairly superficial/poor judgment and insight. Claims that he is eating fairly at this time. No participating in any groups. At this time patient denies any suicidal or homicidal ideations intent or plan. Denies any Auditory or visual hallucinations. Patient denies any side effects from the medications and has been compliant with meds. Mental status exam: General Appearance: Patient appears to be mildly overweight, stated age is alert, directable, and fairly uncooperative. Behavior: [No agitated behavior. Patient is calm and mainly uncooperative Speech: Patient's speech is fluent and nonpressured. [place] Mood/Affect: Mood is improving mildly, affect is congruent and constricted. Suicidality/Homicidality: Patient denies having any suicidal or homicidal ideation intent or plan. Perceptions: Patient denies any auditory or visual hallucinations. Though content/process: [place], poverty of content. Denying any delusions or paranoia. Memory and concentration: AOX3, grossly intact for the purposes of this session Judgment and insight: Poor, improving mildly Assessment/Plan: Continue with current diagnosis. Patient continues to meet criteria for inpatient psychiatric admission for symptom stabilization and safety.Patient will be maintained on current psychotropic medication regimen, with the exception of increasing Zoloft to 100 mg daily at bedtime for mood/anxiety, increasing Zyprexa to 7.5 mg daily at bedtime for mood stabilization/insomnia, discontinue by mouth Ativan as a prn and replace with Vistaril prn. Monitor for medication compliance and for any psychotropic medication side effects. Will continue to monitor ongoing response to treatment. Encouraged participation in milieu.
[2022-12-21] MEDS: OLANZapine 5 MG TAB PO PRN (18:18)
[2022-12-21] MEDS ORDERED: OLANZapine 2.5 MG TAB PO SCH (21:00)
[2022-12-21] MEDS: SERTRALINE 100 MG TAB PO SCH (21:02)
[2022-12-21] MEDS: hydrOXYzine pamoate 25 MG CAP PO PRN (22:00)
[2022-12-22] MEDS: NICOTINE 14MG/24HR PATCH TRANSDERM SCH (09:12)
[2022-12-22] MEDS: FOLIC ACID 1 MG TAB PO SCH (09:12)
[2022-12-22] MEDS ORDERED: ZIPRASIDONE 20 MG VIAL IM PRN (11:53)
[2022-12-22] MEDS ORDERED: LORazepam 2 MG/ML INJ IM PRN (11:54)
[2022-12-22] MEDS ORDERED: ZIPRASIDONE 40 MG CAP PO PRN (11:54)
[2022-12-22] MEDS ORDERED: LORazepam 1 MG TAB PO PRN (11:54)
--- NOTE | 2022-12-22 11:57 | P.PN ---
Progress Note - Text Progress Note Date: 12/22/22 Interval history: Patient was seen lying in bed this morning and was directable and agreeable to speak with writer technical publications. The patient apparently had an incident yesterday where he was highly disruptive during dinner, he was not directable and aggressive with a nurse and attempted to harm her. Patient was agitated yesterday. Patient was seen this morning and he was fairly uncooperative, continues to state that he hears voices at times. He states that he did not sleep well last night. He is fairly concrete, very poor insight and judgment. Claims that he is eating fairly at this time. Not participating in any groups. At this time patient denies any suicidal or homicidal ideations intent or plan. Denies any Auditory or visual hallucinations. Patient denies any side effects from the medications and has been compliant with meds. Mental status exam: General Appearance: Patient appears to be mildly overweight, stated age is alert, directable, and fairly uncooperative. Behavior: [No agitated behavior. Patient is calm and mainly uncooperative Speech: Patient's speech is fluent and nonpressured. [place], evasive Mood/Affect: Mood is improving mildly, affect is congruent and constricted. Suicidality/Homicidality: Patient denies having any suicidal or homicidal ideation intent or plan. Perceptions: Patient denies any auditory or visual hallucinations. Though content/process: [place], poverty of content. Denying any delusions or paranoia. Memory and concentration: AOX3, grossly intact for the purposes of this session Judgment and insight: chronically Poor, improving mildly Assessment/Plan: Continue with current diagnosis. Patient continues to meet criteria for inpatient psychiatric admission for symptom stabilization and safety.Patient will be maintained on current psychotropic medication regimen, d/c Zyprexa and replace with invega 3 mg bid for mood stabilization/psychosis, geodon and ativan prn for agitation/aggression. Monitor for medication compliance and for any psychotropic medication side effects. Will continue to monitor ongoing response to treatment. Encouraged participation in milieu.
[2022-12-22] MEDS: PALIPERIDONE 3 MG TAB.ER.24 PO SCH ×2 (13:17→20:36)
[2022-12-22] MEDS: hydrOXYzine pamoate 25 MG CAP PO PRN (20:36)
[2022-12-22] MEDS: SERTRALINE 100 MG TAB PO SCH (20:36)
[2022-12-23 07:11] VITALS: RESP 18
[2022-12-23] MEDS: NICOTINE 14MG/24HR PATCH TRANSDERM SCH (08:38)
[2022-12-23] MEDS: FOLIC ACID 1 MG TAB PO SCH (08:38)
[2022-12-23] MEDS: PALIPERIDONE 3 MG TAB.ER.24 PO SCH (08:38)
--- NOTE | 2022-12-23 13:37 | P.PN ---
Progress Note - Text Progress Note Date: 12/23/22 Interval history: Patient was seen sitting in the lounge today and was directable and agreeable to speak with fiction writer. The patient continues to be fairly concrete, as fairly chronic limited insight and judgment. He is denying any depression or anxiety at this time. He claims that he is feeling pretty tired during the day. Claims that he was able to sleep fairly last night. He appears to be less paranoid and not endorsing any delusions today. Overnight nurses did not report any incident s in patient's behavior. Claims that he is eating fairly at this time. At this time patient denies any suicidal or homicidal ideations intent or plan. Denies any Auditory or visual hallucinations. Patient denies any side effects from the medications and has been compliant with meds. Mental status exam: General Appearance: Patient appears to be mildly overweight, stated age is alert, directable, and fairly cooperative. Behavior: [No agitated behavior. Patient is calm and more cooeprative today Speech: Patient's speech is fluent and nonpressured. [place], improving midlly Mood/Affect: Mood is improving mildly, affect is congruent and constricted. Suicidality/Homicidality: Patient denies having any suicidal or homicidal ideation intent or plan. Perceptions: Patient denies any auditory or visual hallucinations. Though content/process: [place], poverty of content. Denying any delusions or paranoia. Memory and concentration: AOX3, grossly intact for the purposes of this session Judgment and insight: chronically Poor, improving mildly Assessment/Plan: Continue with current diagnosis. Patient continues to meet criteria for inpatient psychiatric admission for symptom stabilization and safety.Patient will be maintained on current psychotropic medication regimen, changed invega po to 6 mg qhs for mood stabilization/psychosis, geodon and ativan prn for agitation/aggression. patient is agreeable to be transitioned onto GREEN, will likely give Perseris SQ 120 mg IM tomorrow if patient is tolerating invega well. Monitor for medication compliance and for any psychotropic medication side effects. Will continue to monitor ongoing response to treatment. Encouraged participation in milieu. likely discarge in 2-3 days back home.
[2022-12-23] MEDS: SERTRALINE 100 MG TAB PO SCH (20:41)
[2022-12-23] MEDS ORDERED: PALIPERIDONE 6 MG TAB.ER.24 PO SCH (21:00)
[2022-12-24 04:18] VITALS: BP 102/69; PULSE 85; TEMP 97.7
[2022-12-24] MEDS: FOLIC ACID 1 MG TAB PO SCH (09:06)
[2022-12-24] MEDS: NICOTINE 14MG/24HR PATCH TRANSDERM SCH (09:06)
[2022-12-24] MEDS ORDERED: risperiDONE 120 MG SYR (NO COST) PHARMACY STOCK SQ ONE (13:00)
--- NOTE | 2022-12-24 13:02 | P.PN ---
Progress Note - Text Progress Note Date: 12/24/22 Interval history: Patient was seen lying in his bed today and was agreeable to speak to typewriter ribbon winder The patient continues to be fairly concrete, as fairly chronic limited insight and judgment. He appeared to be less irritable today, more directable. He was agreeable to be transitioned onto perseris sq GREEN today. Claims that he was able to sleep fairly last night. He appears to be less paranoid and not endorsing any delusions today. Claims that he is eating fairly at this time. At this time patient denies any suicidal or homicidal ideations intent or plan. Denies any Auditory or visual hallucinations. Patient denies any side effects from the medications and has been compliant with meds. Mental status exam: General Appearance: Patient appears to be mildly overweight, stated age is alert, directable, and fairly cooperative. Behavior: [No agitated behavior. Patient is calm and more cooeprative today Speech: Patient's speech is fluent and nonpressured. [place], improving midlly Mood/Affect: Mood is improving mildly, affect is congruent and constricted. Suicidality/Homicidality: Patient denies having any suicidal or homicidal ideation intent or plan. Perceptions: Patient denies any auditory or visual hallucinations. Though content/process: [place], poverty of content. Denying any delusions or paranoia. Memory and concentration: AOX3, grossly intact for the purposes of this session Judgment and insight: chronically limited, improving mildly Assessment/Plan: Continue with current diagnosis. Patient continues to meet criteria for inpatient psychiatric admission for symptom stabilization and safety.Patient will be maintained on current psychotropic medication regimen, invega po 6 mg qhs for mood stabilization/psychosis, will give PErseris SQ 120 mg IM today to ensure compliance, next dose will be due in 1 month on 01/21. geodon and ativan prn for agitation/aggression. Monitor for medication compliance and for any psychotropic medication side effects. Will continue to monitor ongoing response to treatment. Encouraged participation in milieu. likely discarge back home tomorrow.
[2022-12-24] MEDS: SERTRALINE 100 MG TAB PO SCH (20:37)
[2022-12-24] MEDS ORDERED: PALIPERIDONE 6 MG TAB.ER.24 PO ONE (21:00)
[2022-12-25] MEDS: NICOTINE 14MG/24HR PATCH TRANSDERM SCH (08:35)
[2022-12-25] MEDS: FOLIC ACID 1 MG TAB PO SCH (08:35)
--- NOTE | 2022-12-25 11:23 | P.DS ---
Providers Date of admission: 12/18/22 17:24 Expected date of discharge: 12/25/22 Attending physician: Chevy Schaeffer MD Consults: 12/18/22 18:05 Consult Physician Routine Consulting Provider: Hemalatha Physician Consult Reason/Comments: H&P Do you want consulting provider notified?: Yes Primary care physician: Stated None - Discharge Diagnosis(es) (1) Unspecified psychosis Current Visit: Yes Status: Acute Priority: High (2) Intellectual disability Current Visit: Yes Status: Acute Priority: Medium (3) Nicotine dependence Current Visit: Yes Status: Acute Priority: Low (4) Cannabis use disorder Current Visit: Yes Status: Acute Priority: Medium Hospital Course: Admission HPI: Admission note was completed by proposal manager writer "Patient is a 37-year-old male, currently homeless. Patient presented to the hospital yesterday and was seen in the ER. Apparently patient was having altered mental status homicidal ideations auditory and visual hallucinations. Patient was apparently seen multiple times in the ER recently. Patient was uncooperative and was also in restraints in the ER. Patient was admitted to the mental health unit yesterday and apparently signed voluntary. Patient correctly knew his name He was [facility] knew the correct date. He came was seen laying in his bed today was agreeable poem writer. He appeared to be fairly concrete, states that he came in "because I'm homeless". He was mumbling and somewhat worried and coherent. He claims that he needs help "with everything". He claims that he has been having "bad mental health". He states that he has been feeling depressed and angry/mouth, endorsing anxiety as well. He is endorsing mood swings. Claims that he is hearing voices however did not describe what they are saying to him. Claims that his sleep has been on and off, appetite is fair. Denying any visual hallucinations.Patient denies any suicidal or homicidal ideations intent or plan. Patient denies any flight of ideas racing thoughts and increased in goal directed behavior. Patient admits to using cigarettes regularly and marijuana frequently." Hospital course: Upon admission to the unit patient was admitted involuntarily on a petition and certificate and a second certificate was completed and faxed with the courts. Patient ended up signing a deferral with the admitted attorneys and agreeing to treatment. Patient was initially isolative, bizarre and impulsive however with time and treatment he eventually got along well with other patients on the unit and followed unit protocol. Patient was compliant with the medications and denied any side effects throughout hospital course. Patient was started on paliperidone by mouth and was doing well and transitioned onto Perseris SQ 120 mg IM, dose was given on the unit on 12/24 and next dose will be due on 01/21. Patient was also started on Zoloft and increased her dose of 100 mg daily for mood/anxiety. Patient spoke of his stressors and engaged in therapy both group and individual. Patient was also seen by medical team for history and physical exam. Throughout the course of the hospitalization patient gradually improved with regards to mood, anxiety, hallucinations, aggression, sleep and returned back to their baseline level of functioning. On the day of discharge patient denied any suicidal or homicidal ideations intent or plan denied any auditory or visual hallucinations. Patient endorsed wanting to live for his health and family. The patient denied any access to guns or weapons. Patient denied any paranoia and did not endorse any delusions. Patient does have a significant history of substance abuse and was counseled on abstaining from all substances including alcohol and marijuana. Patient elected to do outpatient substance use treatment program through [facility]. Patient was also counseled on the medications and need for regular compliance and was encouraged to follow-up with their outpatient appointment for mental health and also for primary care. line up worker spoke with patient's mother took when a discharge planning however mother is refusing to have patient come back home and stay with her, we will arrange for patient to be discharged to halfway today via cab. He will follow-up with [facility] for his outpatient care. Mental status exam: General Appearance: Patient appears to be balding, poor dentition, mildly overweight, stated age is alert, pleasant, and cooperative. Patient is in no acute distress and has improved hygiene and grooming Behavior: Patient is calmly seated without any agitated behavior. Directable Speech: Patient's speech is fluent and nonpressured. [place] Mood/Affect: Patient reports their mood is "good", affect is congruent and euthymic. Suicidality/Homicidality: Patient denies having any suicidal or homicidal ideation intent or plan. Perceptions: Patient denies any auditory or visual hallucinations. Though content/process: There is no evidence of any delusional thought content and thought process is linear and goal-directed. more future oriented. [place] Memory and concentration: AOX3, grossly intact for the purposes of this session. Can spell "WORLD" backwards correctly. Judgment and insight: chronically limited, however has improved with guarded prognosis Impression: Psychosis unspecified Intellectual disability Cannabis use disorder Nicotine dependence Plan: -Continue with discharge today as patient has improved and stabilized psychiatrically and is not currently an imminent threat to himself and/or others. Patient will remain at chronically elevated risk for harm to self and/or others due to his impulsivity and intellectual disability. -Continue medications: Perseris SQ 120 mg IM q monthly, last dose given on 12/24 and next dose will be due on 01/21. Zoloft 100 mg daily for mood/anxiety. -Patient was counseled on the need for medication compliance and appropriate follow-up at mental health and also primary care for medical issues. Patient verbalized understanding and agreed. -Social work to conduct family meeting with patient's mother, mother is not agreeable to have patient stay with her at home therefore patient will be referred to halfway in [facility]. Social work also to arrange for patients follow up appointments with [facility] for psychiatric care along with follow up with primary care provider. -Patient counseled on abstaining from recreational drugs and marijuana and alcohol. Was informed/educated on the adverse effects on their physical and mental health. Patient verbally agreed and understood. -Patient was instructed to return to the hospital or seek immediate medical care if their psychiatric or medical symptoms do worsen or reoccur. INSERT DATA FORMATS Allergies Allergy/AdvReac Type Severity Reaction Status Date / Time No Known Allergies Allergy Verified 12/18/22 13:36 Laboratory Results WBC 9.8 k/uL (3.8-10.6) 12/19/22 09:56 RBC 4.66 m/uL (4.30-5.90) 12/19/22 09:56 Hgb 15.2 gm/dL (13.0-17.5) 12/19/22 09:56 Hct 44.0 % (39.0-53.0) 12/19/22 09:56 MCV 94.3 fL (80.0-100.0) 12/19/22 09:56 MCH 32.6 pg (25.0-35.0) 12/19/22 09:56 MCHC 34.6 g/dL (31.0-37.0) 12/19/22 09:56 RDW 12.4 % (11.5-15.5) 12/19/22 09:56 Plt Count 234 k/uL (150-450) 12/19/22 09:56 MPV 8.6 12/19/22 09:56 Neutrophils % 55 % 12/19/22 09:56 Lymphocytes % 31 % 12/19/22 09:56 Monocytes % 7 % 12/19/22 09:56 Eosinophils % 5 % 12/19/22 09:56 Basophils % 1 % 12/19/22 09:56 Neutrophils # 5.3 k/uL (1.3-7.7) 12/19/22 09:56 Lymphocytes # 3.0 k/uL (1.0-4.8) 12/19/22 09:56 Monocytes # 0.7 k/uL (0-1.0) 12/19/22 09:56 Eosinophils # 0.5 k/uL (0-0.7) 12/19/22 09:56 Basophils # 0.1 k/uL (0-0.2) 12/19/22 09:56 Sodium 142 mmol/L (137-145) 12/19/22 09:56 Potassium 4.9 mmol/L (3.5-5.1) 12/19/22 09:56 Chloride 105 mmol/L (98-107) 12/19/22 09:56 Carbon Dioxide 28 mmol/L (22-30) 12/19/22 09:56 Anion Gap 9 mmol/L 12/19/22 09:56 BUN 15 mg/dL (9-20) 12/19/22 09:56 Creatinine 0.58 mg/dL (0.66-1.25) L 12/19/22 09:56 Est GFR (CKD-EPI)AfAm >90 (>60 ml/min/1.73 sqM) 12/19/22 09:56 Est GFR (CKD-EPI)NonAf >90 (>60 ml/min/1.73 sqM) 12/19/22 09:56 Glucose 86 mg/dL (74-99) 12/19/22 09:[address] Glu mg/dL 117 mg/dL 12/19/22 09:56 Hemoglobin A1c 5.7 % (<=6.0) 12/19/22 09:56 Calcium 10.0 mg/dL (8.4-10.2) 12/19/22 09:56 Total Bilirubin 0.6 mg/dL (0.2-1.3) 12/19/22 09:56 AST 20 U/L (17-59) 12/19/22 09:56 ALT 20 U/L (4-49) 12/19/22 09:56 Alkaline Phosphatase 64 U/L (38-126) 12/19/22 09:56 Total Protein 7.0 g/dL (6.3-8.2) 12/19/22 09:56 Albumin 4.2 g/dL (3.5-5.0) 12/19/22 09:56 TSH 1.530 mIU/L (0.465-4.680) 12/19/22 09:56 Coronavirus (PCR) Not Detected (Not Detectd) 12/18/22 16:04 Vital Signs Temp 97.7 F 12/24/22 04:04 Pulse 85 12/24/22 04:04 Resp 18 12/23/22 06:42 BP 102/69 12/24/22 04:04 Pulse Ox 97 12/23/22 06:42 FiO2 Patient Condition at Discharge: Stable Plan - Discharge Summary New Discharge Prescriptions: New risperiDONE ER inj [Perseris] 120 mg SQ QMONTHLY #1 each Sertraline [Zoloft] 100 mg PO HS 30 Days #30 tab Nicotine 14Mg/24Hr Patch [Habitrol] 1 patch TRANSDERM DAILY 14 Days #14 patch Continue Cyanocobalamin (Vitamin B-12) [Vitamin B-12] 1,000 mcg PO DAILY #30 tablet Folic Acid 1 mg PO DAILY #30 tablet Discontinued risperiDONE [RisperDAL] 1 mg PO BID #60 tablet Discharge Medication List Cyanocobalamin (Vitamin B-12) [Vitamin B-12] 1,000 mcg PO DAILY #30 tablet 12/13/22 [Rx] Folic Acid 1 mg PO DAILY #30 tablet 12/13/22 [Rx] Nicotine 14Mg/24Hr Patch [Habitrol] 1 patch TRANSDERM DAILY 14 Days #14 patch 12/25/22 [Rx] Sertraline [Zoloft] 100 mg PO HS 30 Days #30 tab 12/25/22 [Rx] risperiDONE ER inj [Perseris] 120 mg SQ QMONTHLY #1 each 12/25/22 [Rx] Follow up Appointment(s)/Referral(s): [facility] [Outside] - 12/30/22 11:30 am (Central Intake Unit 12/30 @ 11:30) [facility] [NON-STAFF] - 1 Week Activity/Diet/Wound Care/Special Instructions: Avoid the use of street drugs and alcohol. Take all medications as prescribed. When you are in need of refills on your medications, please contact your medical provider and/or outpatient psychiatrist/provider to have this done. Please go to your scheduled outpatient appointment for aftercare treatment. If symptoms return or become worse, call the crisis line at and/or go to the nearest emergency room for evaluation. National Suicide Hotline 262. Discharge Disposition: HOME SELF-CARE
== END 2022-12-25 16:25 | disposition home or self-care (01) | DRG 885 ==
LOC: EC 14:48 → 3MHU 12-18 17:24
PROVIDERS: ADMIT Psychiatry & Neurology Psychiatry; ATTEND Psychiatry & Neurology Psychiatry
DX: F29 Unspecified psychosis not due to a substance or known physiological condition (principal); R45.851 Suicidal ideations; E66.9 Obesity, unspecified; Z87.440 Personal history of urinary (tract) infections; F12.10 Cannabis abuse, uncomplicated; F17.210 Nicotine dependence, cigarettes, uncomplicated; F22 Delusional disorders; F32.A Depression, unspecified; F41.9 Anxiety disorder, unspecified; F79 Unspecified intellectual disabilities; G47.00 Insomnia, unspecified; R45.850 Homicidal ideations; Z78.1 Physical restraint status; Z79.899 Other long term (current) drug therapy; Z68.38 Body mass index [BMI] 38.0-38.9, adult
CPT/HCPCS: 80053; 82075; 83036; 84443; 85025; 87635; 99285

== ENCOUNTER 2022-12-25 20:02 | Emergency (ER) | payer BC ==
--- NOTE | 2022-12-25 20:53 | ED ---
Psych HPI - General Source: patient, family, police, RN notes reviewed, old records reviewed Mode of arrival: ambulatory Limitations: no limitations - History of Present Illness MD Complaint: suicidal ideation, feels depressed, altered mental status -: days(s) Associated Psychiatric Symptoms: none Improves With: none Worsens With: none Associated Symptoms: denies other symptoms Treatments Prior to Arrival: placed on mental health hold <Himanshu Tran - Last Filed: 12/25/22 22:09> <Price Forbes - Last Filed: 12/27/22 14:54> - General Chief Complaint: Psychiatric Symptoms Stated Complaint: Mental Health Time Seen by Provider: 12/25/22 20:43 - History of Present Illness Initial Comments: This is a 57 show male to the ER today for evaluation. Patient presents to the emergency department for evaluation regards to court ordered psychiatric and mental health evaluations patient is incapable of taking care of himself (Himanshu Tran) - Related Data Home Medications Medication Instructions Recorded Confirmed risperiDONE ER inj [Perseris] 120 mg SQ Q30D 12/26/22 12/26/22 Previous Rx's Medication Instructions Recorded Cyanocobalamin (Vitamin B-12) 1,000 mcg PO DAILY #30 tablet 12/13/22 [Vitamin B-12] Folic Acid 1 mg PO DAILY #30 tablet 12/13/22 Nicotine 14Mg/24Hr Patch [Habitrol] 1 patch TRANSDERM DAILY 14 Days 12/25/22 #14 patch Sertraline [Zoloft] 100 mg PO HS 30 Days #30 tab 12/25/22 Allergies Allergy/AdvReac Type Severity Reaction Status Date / Time No Known Allergies Allergy Verified 12/26/22 17:26 Review of Systems ROS Other: All systems not noted in ROS Statement are negative. <Himanshu Tran - Last Filed: 12/25/22 22:09> ROS Other: All systems not noted in ROS Statement are negative. <Price Forbes - Last Filed: 12/27/22 14:54> ROS Statement: Those systems with pertinent positive or pertinent negative responses have been documented in the HPI. Past Medical History Past Medical History: No Reported History Additional Past Medical History / Comment(s): UTI, Urinary retention History of Any Multi-Drug Resistant Organisms: None Reported Past Surgical History: No Surgical Hx Reported Past Psychological History: Bipolar, Depression Smoking Status: Current every day smoker Past Alcohol Use History: None Reported Past Drug Use History: None Reported <Himanshu Tran - Last Filed: 12/25/22 22:09> General Exam Limitations: no limitations General appearance: alert, in no apparent distress Head exam: Present: atraumatic, normocephalic, normal inspection Eye exam: Present: normal appearance, PERRL, EOMI. Absent: scleral icterus, conjunctival injection, periorbital swelling ENT exam: Present: normal exam, mucous membranes moist Neck exam: Present: normal inspection. Absent: tenderness, meningismus, lymphadenopathy Respiratory exam: Present: normal lung sounds bilaterally. Absent: respiratory distress, wheezes, rales, rhonchi, stridor Cardiovascular Exam: Present: regular rate, normal rhythm, normal heart sounds. Absent: systolic murmur, diastolic murmur, rubs, gallop, clicks GI/Abdominal exam: Present: soft, normal bowel sounds. Absent: distended, tenderness, guarding, rebound, rigid Extremities exam: Present: normal inspection, full ROM, normal capillary refill. Absent: tenderness, pedal edema, joint swelling, calf tenderness Back exam: Present: normal inspection Neurological exam: Present: alert, oriented X3, CN II-XII intact Psychiatric exam: Present: normal affect, normal mood Skin exam: Present: warm, dry, intact, normal color. Absent: rash <Himanshu Tran - Last Filed: 12/25/22 22:09> Course <Himanshu Tran - Last Filed: 12/25/22 22:09> Vital Signs 12/25/22 12/27/22 20:14 06:46 Temperature 99.2 F 98.6 F Pulse Rate 99 88 Respiratory 18 18 Rate Blood Pressure 124/86 122/84 O2 Sat by Pulse 97 97 Oximetry - Reevaluation(s) Reevaluation #1: 12/25/22 22:10 medical records reviewed (Himanshu Tran) Reevaluation #2: 12/25/22 22:10 Medically clear for psychiatric evaluation (Himanshu Tran) Medical Decision Making <Price Forbes - Last Filed: 12/27/22 14:54> - Medical Decision Making Patient originally was pending transfer for psychiatric services however was reevaluated today by EPS as well as psychiatry and determined that he didn't meet criteria for discharge home. Patient will be placed under Adult Protective Services. He'll [facility] He'll be discharged home with a safety plan. He does not meet inpatient criteria for admission at this time. Discussed with EPS Nat. (Price Forbes) Disposition <Himanshu Tran - Last Filed: 12/25/22 22:09> Is patient prescribed a controlled substance at d/c from ED?: No Time of Disposition: 14:45 <Price Forbes - Last Filed: 12/27/22 14:54> Clinical Impression: Encounter for psychological evaluation Disposition: HOME SELF-CARE Condition: Good Additional Instructions: follow safety plan Referrals: None,Stated [Primary Care Provider] - 1-2 days
[2022-12-26] MEDS ORDERED: LORazepam 2 MG/ML INJ IM STA (03:06)
[2022-12-26] MEDS ORDERED: ACETAMINOPHEN TAB 325 MG TAB PO STA (13:55)
[2022-12-27 15:02] VITALS: BP 120/82; PULSE 90; RESP 17; TEMP 98.9
== END 2022-12-27 15:03 | disposition home or self-care (01) ==
LOC: EC 20:02
DX: Z00.8 Encounter for other general examination (principal); F31.9 Bipolar disorder, unspecified; F17.200 Nicotine dependence, unspecified, uncomplicated; Z79.899 Other long term (current) drug therapy
CPT/HCPCS: 82075; 99285; 96372; J2060

== ENCOUNTER 2023-01-13 23:49 | Emergency (ER) | payer BC ==
[2023-01-14 00:12] VITALS: TEMP 98.6
[2023-01-14] MEDS ORDERED: ACETAMINOPHEN TAB 325 MG TAB PO STA (00:17)
--- NOTE | 2023-01-14 00:42 | ED ---
General Adult HPI - General Chief complaint: Recheck/Abnormal Lab/Rx Stated complaint: Hot/Cold Flashes Time Seen by Provider: 01/13/23 23:59 Source: patient, RN notes reviewed Mode of arrival: ambulatory Limitations: no limitations - History of Present Illness Initial comments: 57-year-old male has no significant past medical history presents the emergency department with a chief complaint of hot and cold hands and feet. Patient states that this started earlier this afternoon. He reports that she has been walking around the city. He has not taken anything for his symptoms. He denies any injury or trauma. Denies any numbness, tingling, weakness in extremities. He has been taking his medications as prescribed. - Related Data Home Medications Medication Instructions Recorded Confirmed risperiDONE ER inj [Perseris] 120 mg SQ Q30D 12/26/22 12/26/22 Previous Rx's Medication Instructions Recorded Cyanocobalamin (Vitamin B-12) 1,000 mcg PO DAILY #30 tablet 12/13/22 [Vitamin B-12] Folic Acid 1 mg PO DAILY #30 tablet 12/13/22 Nicotine 14Mg/24Hr Patch [Habitrol] 1 patch TRANSDERM DAILY 14 Days 12/25/22 #14 patch Sertraline [Zoloft] 100 mg PO HS 30 Days #30 tab 12/25/22 Allergies Allergy/AdvReac Type Severity Reaction Status Date / Time No Known Allergies Allergy Verified 01/13/23 23:55 Review of Systems ROS Statement: Those systems with pertinent positive or pertinent negative responses have been documented in the HPI. ROS Other: All systems not noted in ROS Statement are negative. Past Medical History Past Medical History: No Reported History Additional Past Medical History / Comment(s): UTI, Urinary retention History of Any Multi-Drug Resistant Organisms: None Reported Past Surgical History: No Surgical Hx Reported Past Psychological History: Bipolar, Depression Smoking Status: Current every day smoker Past Alcohol Use History: None Reported Past Drug Use History: None Reported General Exam - General Exam Comments Initial Comments: General: Alert, in no acute distress Head: atraumatic normocephalic. Eyes PERRL, EOMI intact, mucous membranes moist Respiratory: Lungs clear to auscultation bilaterally Cardiovascular: Heart rate regular rate and rhythm Abdominal: Soft without guarding or rebound Extremities: Normal inspection with full range of motion and normal capillary refill, 2+ radial pulses bilaterally. Distal neurovascular intact. 2+ DP/PT pulses bilaterally. Distal neurovascularly intact bilateral lower extremities. Neuroogic: alert and oriented 3, CN II-XII intact, able to ambulate with steady gait Skin: warm dry and intact with normal color Limitations: no limitations Course Vital Signs 01/13/23 23:53 Temperature 98.6 F Pulse Rate 89 Respiratory 20 Rate Blood Pressure 117/75 O2 Sat by Pulse 97 Oximetry - Reevaluation(s) Reevaluation #1: 01/14/23 01:16 Reevaluated. Patient resting comfortably. Patient provided hot pack for his cold hands. Patient reports symptomatic improvement. Medical Decision Making - Medical Decision Making Was pt. sent in by a medical professional or institution (, TEGAN, REEL HOOKER, urgent care, hospital, or retirement...) When possible be specific @ -[No] Did you speak to anyone other than the patient for history (EMS, parent, family, police, friend...)? What history was obtained from this source @ -[No] Did you review nursing and triage notes (agree or disagree)? Why? @ -[I reviewed and agree with nursing and triage notes] Were old charts reviewed (outside hosp., previous admission, EMS record, old EKG, old radiological studies, urgent care reports/EKG's, retirement records)? Report findings @ -[No old charts were reviewed] Differential Diagnosis (chest pain, altered mental status, abdominal pain women, abdominal pain men, vaginal bleeding, weakness, fever, dyspnea, syncope, headache, dizziness, GI bleed, back pain, seizure, CVA, palpatations, mental health, musculoskeletal)? @ -[not applicable] EKG interpreted by me (3pts min.). @ -[As above] X-rays interpreted by me (1pt min.). @ -[None done] CT interpreted by me (1pt min.). @ -[None done] U/S interpreted by me (1pt. min.). @ -[None done] What testing was considered but not performed or refused? (CT, X-rays, U/S, labs)? Why? @ -[None] What meds were considered but not given or refused? Why? @ -[None] Did you discuss the management of the patient with other professionals (professionals i.e. , PA, REEL HOOKER, lab, RT, psych nurse, social service manager, analytical data scientist, teacher, admissions officer, heel caser)? Give summary @ -[No] Was smoking cessation discussed for >3mins.? @ -[No] Was critical care preformed (if so, how long)? @ -[No] Were there social determinants of health that impacted care today? How? (Homelessness, low income, unemployed, alcoholism, drug addiction, palomo sportation, low edu. Level, literacy, decrease access to med. care, care home, rehab)? @ -[No] Was there de-escalation of care discussed even if they declined (Discuss DNR or withdrawal of care, Hospice)? DNR status @ -[No] What co-morbidities impacted this encounter? (DM, HTN, Smoking, COPD, CAD, Cancer, CVA, ARF, Chemo, Hep., AIDS, mental health diagnosis, sleep apnea, morbid obesity)? @ -[None] Was patient admitted / discharged? Hospital course, mention meds given and route, prescriptions, significant lab abnormalities, going to OR and other pertinent info. @ Discharged. This is a 57-year-old male who presents to the emergency department with warm and cold hands and feet. Patient had a thorough history and physical exam performed. Physical exam essentially unremarkable. Patient was provided Tylenol and warm packs for symptomatic improvement. Return precautions were discussed at length. Patient discharged in stable condition. Discussed with DARIO Caraballo who agrees with POC. Undiagnosed new problem with uncertain prognosis? @ -[No] Drug Therapy requiring intensive monitoring for toxicity (Heparin, Nitro, Insulin, Cardizem)? @ -[No] Were any procedures done? @ -[No] Diagnosis/symptom? @ -Hand problem - Feet problem Acute, or Chronic, or Acute on Chronic? @ -Acute Uncomplicated (without systemic symptoms) or Complicated (systemic symptoms)? @ -Uncomplicated Side effects of treatment? @ -[No] Exacerbation, Progression, or Severe Exacerbation? @ -[No] Poses a threat to life or bodily function? How? (Chest pain, [place], [place], pneumonia, PE, COPD, DKA, ARF, appy, cholecystitis, CVA, Diverticulitis, Homicidal, Suicidal, threat to staff... and all critical care pts) @ -Low likelihood Disposition Clinical Impression: Intellectual disability, Cold hands and feet Disposition: HOME SELF-CARE Condition: Stable Additional Instructions: Please monitor symptoms closely Please return to the nearest emergency department if symptoms worsen or persist Is patient prescribed a controlled substance at d/c from ED?: No Referrals: None,Stated [Primary Care Provider] - 1-2 days Time of Disposition: 01:35
[2023-01-14 06:42] VITALS: BP 92/54; PULSE 59; RESP 16
== END 2023-01-14 06:26 | disposition home or self-care (01) ==
LOC: EC 23:49
DX: F79 Unspecified intellectual disabilities (principal); R20.1 Hypoesthesia of skin; F31.9 Bipolar disorder, unspecified; F17.200 Nicotine dependence, unspecified, uncomplicated; Z79.899 Other long term (current) drug therapy
CPT/HCPCS: 99282

== ENCOUNTER 2023-01-14 22:58 | Emergency (ER) | payer BC ==
[2023-01-14 23:22] VITALS: RESP 18; TEMP 98.8
[2023-01-15] MEDS ORDERED: FAMOTIDINE 20 MG TAB PO STA (00:07)
--- NOTE | 2023-01-15 00:47 | ED ---
General Adult HPI - General Chief complaint: Abdominal Pain Stated complaint: abd pain Time Seen by Provider: 01/14/23 23:20 Source: patient, RN notes reviewed Mode of arrival: ambulatory Limitations: no limitations - History of Present Illness Initial comments: 57-year-old with past medical history significant for cognitive delay and psychosis presents the emergency department the chief complaint of hand problem. Patient reports that his hands with a cold at times. Patient was seen and evaluated here last night for same. Patient is also complaining of vague abdominal pain that has since resolved. Patient denies any fevers, chills, cough, nausea, vomiting, changes in bowel habits. - Related Data Home Medications Medication Instructions Recorded Confirmed risperiDONE ER inj [Perseris] 120 mg SQ Q30D 12/26/22 12/26/22 Previous Rx's Medication Instructions Recorded Cyanocobalamin (Vitamin B-12) 1,000 mcg PO DAILY #30 tablet 12/13/22 [Vitamin B-12] Folic Acid 1 mg PO DAILY #30 tablet 12/13/22 Nicotine 14Mg/24Hr Patch [Habitrol] 1 patch TRANSDERM DAILY 14 Days 12/25/22 #14 patch Sertraline [Zoloft] 100 mg PO HS 30 Days #30 tab 12/25/22 Allergies Allergy/AdvReac Type Severity Reaction Status Date / Time No Known Allergies Allergy Verified 01/14/23 23:04 Review of Systems ROS Statement: Those systems with pertinent positive or pertinent negative responses have been documented in the HPI. ROS Other: All systems not noted in ROS Statement are negative. Past Medical History Past Medical History: No Reported History Additional Past Medical History / Comment(s): UTI, Urinary retention History of Any Multi-Drug Resistant Organisms: None Reported Past Surgical History: No Surgical Hx Reported Past Psychological History: Bipolar, Depression Smoking Status: Current every day smoker Past Alcohol Use History: None Reported Past Drug Use History: None Reported General Exam - General Exam Comments Initial Comments: General: Alert, in no acute distress Head: atraumatic normocephalic. Eyes PERRL, EOMI intact, mucous membranes moist Respiratory: Lungs clear to auscultation bilaterally Cardiovascular: Heart rate regular rate and rhythm Abdominal: Soft without guarding or rebound Extremities: Normal inspection with full range of motion and normal capillary refill Neuroogic: alert and oriented 3, CN II-XII intact, able to ambulate with steady gait Skin: warm dry and intact with normal color Limitations: no limitations Course Vital Signs 01/14/23 23:03 Temperature 98.8 F Pulse Rate 60 Respiratory 18 Rate Blood Pressure 111/72 O2 Sat by Pulse 96 Oximetry - Reevaluation(s) Reevaluation #1: 01/15/23 03:05 Patient reevaluated. Patient resting comfortably. Does not admit to any abdominal pain at this time. Patient reports hands are not cold anymore. Medical Decision Making - Medical Decision Making Was pt. sent in by a medical professional or institution (, PA, [employer]INTAIN[employer], urgent care, hospital, or detention...) When possible be specific @ -[No] Did you speak to anyone other than the patient for history (EMS, parent, family, police, friend...)? What history was obtained from this source @ -[No] Did you review nursing and triage notes (agree or disagree)? Why? @ -[I reviewed and agree with nursing and triage notes] Were old charts reviewed (outside hosp., previous admission, EMS record, old EKG, old radiological studies, urgent care reports/EKG's, detention records)? Report findings @ Now reviewed from 01/14/2023 Differential Diagnosis (chest pain, altered mental status, abdominal pain women, abdominal pain men, vaginal bleeding, weakness, fever, dyspnea, syncope, headache, dizziness, GI bleed, back pain, seizure, CVA, palpatations, mental health, musculoskeletal)? @ -[not applicable] EKG interpreted by me (3pts min.). @ -[As above] X-rays interpreted by me (1pt min.). @ -[None done] CT interpreted by me (1pt min.). @ -[None done] U/S interpreted by me (1pt. min.). @ -[None done] What testing was considered but not performed or refused? (CT, X-rays, U/S, labs)? Why? @ -Imaging and laboratory studies were considered however patient is denying any active symptoms at the time of evaluation. Patient resting comfortably and in no acute distress. Vital signs are stable. What meds were considered but not given or refused? Why? @ -[None] Did you discuss the management of the patient with other professionals (professionals i.e. , PA, PRESS MAINTAINER, lab, RT, psych nurse, criminal justice social worker, head of sales promotion, teacher, project control officer, complex case manager)? Give summary @ -[No] Was smoking cessation discussed for >3mins.? @ -[No] Was critical care preformed (if so, how long)? @ -[No] Were there social determinants of health that impacted care today? How? (Homelessness, low income, unemployed, alcoholism, drug addiction, transportation, low edu. Level, literacy, decrease access to med. care, [facility], rehab)? @ Low education level Was there de-escalation of care discussed even if they declined (Discuss DNR or withdrawal of care, Hospice)? DNR status @ -[No] What co-morbidities impacted this encounter? (DM, HTN, Smoking, COPD, CAD, Cancer, CVA, ARF, Chemo, Hep., AIDS, mental health diagnosis, sleep apnea, morbid obesity)? @ -[None] Was patient admitted / discharged? Hospital course, mention meds given and route, prescriptions, significant lab abnormalities, going to OR and other pertinent info. @ -[Discharged. This is a 57-year-old male who presents to the emergency department with hand problem. Patient mother his physical exam performed. Physical exam essentially unremarkable. Heart rate regular rate and rhythm, lungs clear to auscultation bilaterally abdomen soft and nontender. Patient reports resolution of symptoms during history and evaluations. Patient resting comfortably during the course of the ED. patient was given Pepcid with symptomatic improvement. Return precautions were discussed. Patient discharged in stable condition case. Case discussed with Dr. Conklin [facility] who agrees with plan of care Undiagnosed new problem with uncertain prognosis? @ -[No] Drug Therapy requiring intensive monitoring for toxicity (Heparin, Nitro, Insulin, Cardizem)? @ -[No] Were any procedures done? @ -[No] Diagnosis/symptom? @ -Warm Hands - Abdominal pain Acute, or Chronic, or Acute on Chronic? @ -Acute Uncomplicated (without systemic symptoms) or Complicated (systemic symptoms)? @ -Uncomplicated Side effects of treatment? @ -[No] Exacerbation, Progression, or Severe Exacerbation? @ -[No] Poses a threat to life or bodily function? How? (Chest pain, [place], [place], pneumonia, PE, COPD, DKA, ARF, appy, cholecystitis, CVA, Diverticulitis, Homicidal, Suicidal, threat to staff... and all critical care pts) @ -Low likelihood Disposition Clinical Impression: Cold hands and feet, Abdominal pain Disposition: HOME SELF-CARE Condition: Stable Additional Instructions: His monitor symptoms closely Please return to the nearest emergency department worsening symptoms. Is patient prescribed a controlled substance at d/c from ED?: No Referrals: None,Stated [Primary Care Provider] - 1-2 days Time of Disposition: 03:08
[2023-01-15 04:02] VITALS: BP 101/61; PULSE 71
== END 2023-01-15 04:12 | disposition home or self-care (01) ==
LOC: EC 22:58
DX: J00 Acute nasopharyngitis [common cold] (principal); R10.9 Unspecified abdominal pain; F17.200 Nicotine dependence, unspecified, uncomplicated; F31.9 Bipolar disorder, unspecified; Z79.899 Other long term (current) drug therapy
CPT/HCPCS: 99284

== ENCOUNTER 2023-01-15 19:08 | Emergency (ER) | payer BC ==
[2023-01-15] MEDS ORDERED: IBUPROFEN 600 MG TAB PO STA (19:29)
--- NOTE | 2023-01-15 19:42 | ED ---
General Adult HPI - General Chief complaint: Back Pain/Injury Stated complaint: chest/back pain Time Seen by Provider: 01/15/23 19:23 Source: patient Mode of arrival: ambulatory Limitations: no limitations - History of Present Illness Initial comments: This 57-year-old male presents with complaint of some pain to his right chest as well as his posterior thoracic region. He states that this came on today. It occurred when he went from a bending over position to standing up. It seems worse with certain movements. He denies any actual trauma. He is not taking any medication for it as of yet. He denies any other complaints or modifying factors. It is easily reproducible. There is no leg pain or swelling. He denies any known history of cardiac or pulmonary disease. - Related Data Home Medications Medication Instructions Recorded Confirmed risperiDONE ER inj [Perseris] 120 mg SQ Q30D 12/26/22 12/26/22 Previous Rx's Medication Instructions Recorded Cyanocobalamin (Vitamin B-12) 1,000 mcg PO DAILY #30 tablet 12/13/22 [Vitamin B-12] Folic Acid 1 mg PO DAILY #30 tablet 12/13/22 Nicotine 14Mg/24Hr Patch [Habitrol] 1 patch TRANSDERM DAILY 14 Days 12/25/22 #14 patch Sertraline [Zoloft] 100 mg PO HS 30 Days #30 tab 12/25/22 Ibuprofen [Motrin] 800 mg PO Q8H PRN #20 tab 01/15/23 Allergies Allergy/AdvReac Type Severity Reaction Status Date / Time No Known Allergies Allergy Verified 01/15/23 19:11 Review of Systems ROS Statement: Those systems with pertinent positive or pertinent negative responses have been documented in the HPI. ROS Other: All systems not noted in ROS Statement are negative. Past Medical History Past Medical History: No Reported History Additional Past Medical History / Comment(s): UTI, Urinary retention History of Any Multi-Drug Resistant Organisms: None Reported Past Surgical History: No Surgical Hx Reported Past Psychological History: Bipolar, Depression Smoking Status: Current every day smoker Past Alcohol Use History: None Reported Past Drug Use History: None Reported General Exam - General Exam Comments Initial Comments: GENERAL: The patient is well nourished and well hydrated. VITAL SIGNS: Heart rate, blood pressure, respiratory rate reviewed as recorded in nurse's notes. EYES: Pupils are round and reactive. Extraocular movements are intact. No conjunctival / lid redness or swelling. ENT: No external evidence of injury, swelling, or ecchymosis. Airway is patent. Throat is clear. NECK: Nontender. No swelling or evidence of injury. No subcutaneous emphysema. Trachea is midline. No thyroid mass. HEART: Regular rate and rhythm. Good peripheral pulses. LUNGS/CHEST: Breath sounds clear and equal bilaterally. No rales, rhonchi, or wheezes. No ecchymosis, subcutaneous emphysema. There is mild tenderness noted directly over the right chest fourth rib at the sternal junction. ABDOMEN: Abdomen soft without tenderness. No palpable masses or organomegaly. No peritoneal signs. No abdominal wall swelling or ecchymosis. SPINE: There is some minimal tenderness in the bilateral parathoracic musculature in the mid to lower thoracic region. EXTREMITIES: No extremity tenderness. Normal muscle tone and function. No thoracolumbar tenderness. NEUROLOGIC: Sensation is grossly intact. Cranial nerve exam reveals face is symmetrical, tongue is midline, speech is clear. SKIN: No abrasions or ecchymosis is noted. No induration or masses noted. PSYCHIATRIC: Alert and oriented. Appropriate behavior and judgment. Limitations: no limitations Course Vital Signs 01/15/23 19:09 Pulse Rate 60 Respiratory 18 Rate Blood Pressure 144/81 O2 Sat by Pulse 99 Oximetry Medical Decision Making - Medical Decision Making The patient was seen and examined. All diagnostics are reviewed. He does receive Motrin 600 mg orally. The chest x-ray does not show any acute process per my interpretation. The EKG shows a sinus bradycardia at a rate of 50. There is no acute ST or T wave changes noted per my interpretation. The intervals are normal. The patient likely does have a costochondritis. He may have a slight degree of thoracic strain. His symptomatology is easily reproducible. Motrin 800 as prescribed. Return parameters are discussed. Close follow-up with primary care recommended. Was pt. sent in by a medical professional or institution (, PA, [employer], urgent care, hospital, or care home...) When possible be specific @ -No Did you speak to anyone other than the patient for history (EMS, parent, family, police, friend...)? What history was obtained from this source @ -No Did you review nursing and triage notes (agree or disagree)? Why? @ -I reviewed and agree with nursing and triage notes Were old charts reviewed (outside hosp., previous admission, EMS record, old EKG, old radiological studies, urgent care reports/EKG's, care home records)? Report findings @ -Old records were reviewed. The patient came to the emergency department once a day for the last 2 days for cold hands and feet. Differential Diagnosis (chest pain, altered mental status, abdominal pain women, abdominal pain men, vaginal bleeding, weakness, fever, dyspnea, syncope, headache, dizziness, GI bleed, back pain, seizure, CVA, palpatations, mental health, musculoskeletal)? @ -Muscle skeletal chest pain, costochondritis, pleuritis, thoracic strain. EKG interpreted by me (3pts min.). @ -As above X-rays interpreted by me (1pt min.). @ -As above CT interpreted by me (1pt min.). @ -None done U/S interpreted by me (1pt. min.). @ -None done What testing was considered but not performed or refused? (CT, X-rays, U/S, la bs)? Why? @ -None What meds were considered but not given or refused? Why? @ -None Did you discuss the management of the patient with other professionals (professionals i.e. DrFelice, PA, [employer], lab, RT, psych nurse, medical social consultant, painter aircraft, teacher, correctional officer chief, wrapper caser)? Give summary @ -No Was smoking cessation discussed for >3mins.? @ -No Was critical care preformed (if so, how long)? @ -No Were there social determinants of health that impacted care today? How? (Homelessness, low income, unemployed, alcoholism, drug addiction, transportation, low edu. Level, literacy, decrease access to med. care, assisted, rehab)? @ -No Was there de-escalation of care discussed even if they declined (Discuss DNR or withdrawal of care, Hospice)? DNR status @ -No What co-morbidities impacted this encounter? (DM, HTN, Smoking, COPD, CAD, Cancer, CVA, ARF, Chemo, Hep., AIDS, mental health diagnosis, sleep apnea, morbid obesity)? @ -Psychiatric disease Was patient admitted / discharged? Hospital course, mention meds given and route, prescriptions, significant lab abnormalities, going to OR and other per tinent info. @ -Patient is discharge. Undiagnosed new problem with uncertain prognosis? @ -No Drug Therapy requiring intensive monitoring for toxicity (Heparin, Nitro, Insulin, Cardizem)? @ -No Were any procedures done? @ -No Diagnosis/symptom? @ -Costochondritis, thoracic strain Acute, or Chronic, or Acute on Chronic? @ -Acute Uncomplicated (without systemic symptoms) or Complicated (systemic symptoms)? @ -Uncomplicated Side effects of treatment? @ -No Exacerbation, Progression, or Severe Exacerbation? @ -No Poses a threat to life or bodily function? How? (Chest pain, [place], [place], pneumonia, PE, COPD, DKA, ARF, appy, cholecystitis, CVA, Diverticulitis, Homicidal, Suicidal, threat to staff... and all critical care pts) @ -No Disposition Clinical Impression: Costochondritis, Thoracic myofascial strain Disposition: HOME SELF-CARE Condition: Good Instructions (If sedation given, give patient instructions): Costochondritis (ED), Thoracic Back Strain (ED) Prescriptions: Ibuprofen [Motrin] 800 mg PO Q8H PRN #20 tab PRN Reason: Pain Is patient prescribed a controlled substance at d/c from ED?: No Referrals: None,Stated [Primary Care Provider] - 1-2 days Time of Disposition: 19:58
[2023-01-15 19:51] VITALS: RESP 18
--- NOTE | 2023-01-15 20:13 | XR ---
EXAMINATION TYPE: XR chest 2V DATE OF EXAM: 01/15/2023 7:41 PM CLINICAL INDICATION:Male, 57 years old with history of possible infiltrate; pain COMPARISON: Chest radiographs from 12/10/2022 TECHNIQUE: XR chest 2V Frontal and lateral views of the chest. FINDINGS: Lungs/Pleura: There is no evidence of pleural effusion, focal consolidation, or pneumothorax. Pulmonary vascularity: Unremarkable. Heart/mediastinum: Cardiomediastinal silhouette is unremarkable. Musculoskeletal: No acute osseous pathology. Other findings: None IMPRESSION: No acute cardiopulmonary disease/process.
[2023-01-15 20:35] VITALS: BP 119/75; PULSE 57; TEMP 98
== END 2023-01-15 20:18 | disposition home or self-care (01) ==
LOC: EC 19:08
DX: S29.012A Strain of muscle and tendon of back wall of thorax, initial encounter (principal); M94.0 Chondrocostal junction syndrome [Tietze]; R00.1 Bradycardia, unspecified; F31.9 Bipolar disorder, unspecified; F17.200 Nicotine dependence, unspecified, uncomplicated; Z79.899 Other long term (current) drug therapy; X58.XXXA Exposure to other specified factors, initial encounter
CPT/HCPCS: 71046; 93005; 99284

== ENCOUNTER 2023-01-29 12:39 | Emergency (ER) | payer BC ==
--- NOTE | 2023-01-29 12:55 | ED ---
General Adult HPI - General Stated complaint: work clearance Time Seen by Provider: 01/29/23 12:53 Source: patient, RN notes reviewed Mode of arrival: ambulatory Limitations: no limitations - History of Present Illness Initial comments: 57-year-old male presents emergency Department with chief complaint of needing a return to work note. Patient states his meds through glass and states that work would not let him go back until he had a note stating he go back to work. He has no complaints of chest pain shortness breath abdominal pain nausea vomiting headache dizziness no focal weakness patient is here with caregiver. Patient denies being suicidal or homicidal. - Related Data Home Medications Medication Instructions Recorded Confirmed risperiDONE ER inj [Perseris] 120 mg SQ Q30D 12/26/22 12/26/22 Previous Rx's Medication Instructions Recorded Cyanocobalamin (Vitamin B-12) 1,000 mcg PO DAILY #30 tablet 12/13/22 [Vitamin B-12] Folic Acid 1 mg PO DAILY #30 tablet 12/13/22 Nicotine 14Mg/24Hr Patch [Habitrol] 1 patch TRANSDERM DAILY 14 Days 12/25/22 #14 patch Sertraline [Zoloft] 100 mg PO HS 30 Days #30 tab 12/25/22 Ibuprofen [Motrin] 800 mg PO Q8H PRN #20 tab 01/15/23 Allergies Allergy/AdvReac Type Severity Reaction Status Date / Time No Known Allergies Allergy Verified 01/15/23 19:11 Review of Systems ROS Statement: Those systems with pertinent positive or pertinent negative responses have been documented in the HPI. ROS Other: All systems not noted in ROS Statement are negative. Past Medical History Past Medical History: No Reported History Additional Past Medical History / Comment(s): UTI, Urinary retention History of Any Multi-Drug Resistant Organisms: None Reported Past Surgical History: No Surgical Hx Reported Past Psychological History: Bipolar, Depression Smoking Status: Current every day smoker Past Alcohol Use History: None Reported Past Drug Use History: None Reported General Exam Limitations: no limitations General appearance: alert, in no apparent distress Head exam: Present: atraumatic, normocephalic, normal inspection Eye exam: Present: normal appearance, PERRL, EOMI. Absent: scleral icterus, conjunctival injection, periorbital swelling ENT exam: Present: normal exam, normal oropharynx, mucous membranes moist Neck exam: Present: normal inspection, full ROM. Absent: tenderness, meningismus, lymphadenopathy Respiratory exam: Present: normal lung sounds bilaterally. Absent: respiratory distress, wheezes, rales, rhonchi, stridor Cardiovascular Exam: Present: regular rate, normal rhythm, normal heart sounds. Absent: systolic murmur, diastolic murmur, rubs, gallop, clicks GI/Abdominal exam: Present: soft, normal bowel sounds. Absent: distended, tenderness, guarding, rebound, rigid Course Vital Signs 01/29/23 12:51 Temperature 98.7 F Pulse Rate 68 Respiratory 16 Rate Blood Pressure 127/78 O2 Sat by Pulse 98 Oximetry Medical Decision Making - Medical Decision Making Was pt. sent in by a medical professional or institution (TEGAN Mills, COMPLEX CASE MANAGER, urgent care, hospital, or usp...) When possible be specific @ -No Did you speak to anyone other than the patient for history (EMS, parent, family, police, friend...)? What history was obtained from this source @ -No Did you review nursing and triage notes (agree or disagree)? Why? @ -I reviewed and agree with nursing and triage notes Were old charts reviewed (outside hosp., previous admission, EMS record, old EKG, old radiological studies, urgent care reports/EKG's, usp records)? Report findings @ -No old charts were reviewed Differential Diagnosis (chest pain, altered mental status, abdominal pain women, abdominal pain men, vaginal bleeding, weakness, fever, dyspnea, syncope, headache, dizziness, GI bleed, back pain, seizure, CVA, palpatations, mental health, musculoskeletal)? @ -[Well check Return to work EKG interpreted by me (3pts min.). @ -[None X-rays interpreted by me (1pt min.). @ -None done CT interpreted by me (1pt min.). @ -None done U/S interpreted by me (1pt. min.). @ -None done What testing was considered but not performed or refused? (CT, X-rays, U/S, labs)? Why? @ -None What meds were considered but not given or refused? Why? @ -None Did you discuss the management of the patient with other professionals (professionals i.e. TEGAN Mills, COMPLEX CASE MANAGER, lab, RT, psych nurse, social welfare research worker, financial administration officer, teacher, chief scientific officer, pillowcase cleaner)? Give summary @ -No Was smoking cessation discussed for >3mins.? @ -No Was critical care preformed (if so, how long)? @ -No Were there social determinants of health that impacted care today? How? (Homelessness, low income, unemployed, alcoholism, drug addiction, transportation, low edu. Level, literacy, decrease access to med. care, longterm, rehab)? @ -No Was there de-escalation of care discussed even if they declined (Discuss DNR or withdrawal of care, Hospice)? DNR status @ -No What co-morbidities impacted this encounter? (DM, HTN, Smoking, COPD, CAD, Cancer, CVA, ARF, Chemo, Hep., AIDS, mental health diagnosis, sleep apnea, morbid obesity)? @ -None Was patient admitted / discharged? Hospital course, mention meds given and route, prescriptions, significant lab abnormalities, going to OR and other pertinent info. @ -Discharge patient was given no to return to work as is no complaints no physical changes. Patient caregiver agrees patient we discharged in stable condition. Undiagnosed new problem with uncertain prognosis? @ -No Drug Therapy requiring intensive monitoring for toxicity (Heparin, Nitro, Insulin, Cardizem)? @ -No Were any procedures done? @ -No Diagnosis/symptom? @ -Return to work clearance Acute, or Chronic, or Acute on Chronic? @ -Acute Uncomplicated (without systemic symptoms) or Complicated (systemic symptoms)? @ -Uncomplicated Side effects of treatment? @ -No Exacerbation, Progression, or Severe Exacerbation? @ -No Poses a threat to life or bodily function? How? (Chest pain, [place], [place], pneumonia, PE, COPD, DKA, ARF, appy, cholecystitis, CVA, Diverticulitis, Homicidal, Suicidal, threat to staff... and all critical care pts) @ -No Disposition Clinical Impression: Well adult health check Disposition: HOME SELF-CARE Condition: Stable Additional Instructions: Please return to the Emergency Department if symptoms worsen or any other concerns. Is patient prescribed a controlled substance at d/c from ED?: No Referrals: None,Stated [Primary Care Provider] - 1-2 days Time of Disposition: 12:55
[2023-01-29 13:10] VITALS: BP 127/78; PULSE 68; RESP 16; TEMP 98.7
== END 2023-01-29 13:14 | disposition home or self-care (01) ==
LOC: EC 12:39
DX: Z02.1 Encounter for pre-employment examination (principal); F31.9 Bipolar disorder, unspecified; F17.200 Nicotine dependence, unspecified, uncomplicated; Z79.899 Other long term (current) drug therapy
CPT/HCPCS: 99281

== ENCOUNTER 2023-04-28 16:24 | Emergency (ER) | payer BC ==
--- NOTE | 2023-04-28 16:58 | ED ---
General Adult HPI - General Chief complaint: Altered Mental Status Stated complaint: Disoriented Time Seen by Provider: 04/28/23 16:34 Source: patient Mode of arrival: ambulatory Limitations: no limitations - History of Present Illness Initial comments: This patient is 57-year-old man who states that he is feeling confused today. When asked if he can be more specific about this he states that he has been walking around on it feels like people are talking to him but they are not. The patient states that this started this morning. He was feeling well yesterday. He decided to walk to the hospital and be evaluated. He did not have any sort of injury. Patient denies use of alcohol or street drugs. He has had a similar presentation to this in the past. Patient denies any physical symptoms, no fever or chills. No cough, chest pain, dyspnea. No vomiting or diarrhea. No change in urination. No rash. Patient denies feeling depressed, having suicidal or homicidal ideation. -: hour(s) Severity scale (1-10): 0 Consistency: constant Improves with: none Worsens with: none Associated Symptoms: confusion Treatments Prior to Arrival: none - Related Data Home Medications Medication Instructions Recorded Confirmed risperiDONE ER inj [Perseris] 120 mg SQ Q30D 12/26/22 05/02/23 Sertraline [Zoloft] 100 mg PO DAILY 04/30/23 05/02/23 Allergies Allergy/AdvReac Type Severity Reaction Status Date / Time No Known Allergies Allergy Verified 05/06/23 08:57 Review of Systems ROS Statement: Those systems with pertinent positive or pertinent negative responses have been documented in the HPI. ROS Other: All systems not noted in ROS Statement are negative. Constitutional: Denies: fever, chills Eyes: Denies: vision change ENT: Denies: throat pain, congestion Respiratory: Denies: cough, dyspnea Cardiovascular: Denies: chest pain, palpitations, syncope Gastrointestinal: Denies: abdominal pain, nausea, vomiting, diarrhea Genitourinary: Denies: dysuria, frequency, hematuria Musculoskeletal: Denies: back pain Skin: Denies: rash Neurological: Reports: as per HPI, confusion. Denies: headache, weakness Psychiatric: Denies: depression, auditory hallucinations, homicidal thoughts, suicidal thoughts Past Medical History Past Medical History: No Reported History Additional Past Medical History / Comment(s): UTI, Urinary retention History of Any Multi-Drug Resistant Organisms: None Reported Past Surgical History: No Surgical Hx Reported Past Psychological History: Bipolar, Depression Smoking Status: Current every day smoker Past Alcohol Use History: None Reported Past Drug Use History: None Reported General Exam Limitations: no limitations General appearance: alert, in no apparent distress Head exam: Present: atraumatic, normocephalic Eye exam: Present: normal appearance. Absent: scleral icterus, conjunctival injection ENT exam: Present: normal oropharynx, other (Poor dentition) Neck exam: Present: normal inspection, full ROM Respiratory exam: Present: normal lung sounds bilaterally. Absent: respiratory distress, wheezes, rales, rhonchi, stridor, accessory muscle use Cardiovascular Exam: Present: regular rate, normal rhythm, normal heart sounds. Absent: systolic murmur, diastolic murmur, rubs, gallop GI/Abdominal exam: Present: soft. Absent: distended, tenderness, guarding, re bound, rigid, mass Extremities exam: Present: normal inspection, normal capillary refill. Absent: pedal edema, calf tenderness Back exam: Present: normal inspection. Absent: CVA tenderness (R), CVA tenderness (L) Neurological exam: Present: alert, oriented X3, CN II-XII intact, other (Patient is oriented to person place and time. He is able to follow multistep commands.). Absent: motor sensory deficit Psychiatric exam: Present: normal mood. Absent: depressed, anxious, flat affect, manic, homicidal ideation, suicidal ideation Skin exam: Present: warm, dry, intact, normal color. Absent: rash Course Vital Signs 04/28/23 04/28/23 04/28/23 16:28 18:18 22:19 Temperature 98.0 F 98.1 F Pulse Rate 66 74 50 L Respiratory 18 18 17 Rate Blood Pressure 124/68 105/66 114/56 O2 Sat by Pulse 98 96 98 Oximetry EKG Findings - EKG Results: EKG: interpreted by ERMD, sinus rhythm, normal axis, normal QRS, normal ST/T EKG shows: bradycardia (Rate 53 bpm) Medical Decision Making - Medical Decision Making Was pt. sent in by a medical professional or institution (, PA, TAKE UP SUPERVISOR, urgent care, hospital, or [facility]...) When possible be specific @ -[No] Did you speak to anyone other than the patient for history (EMS, parent, family, police, friend...)? What history was obtained from this source @ -[No] Did you review nursing and triage notes (agree or disagree)? Why? @ -[I reviewed and agree with nursing and triage notes] Were old charts reviewed (outside hosp., previous admission, EMS record, old EKG, old radiological studies, urgent care reports/EKG's, [facility] records)? Report findings @ -[No old charts were reviewed] Differential Diagnosis (chest pain, altered mental status, abdominal pain women, abdominal pain men, vaginal bleeding, weakness, fever, dyspnea, syncope, headache, dizziness, GI bleed, back pain, seizure, CVA, palpatations, mental health, musculoskeletal)? @ -[Differential Mental Health Depression, anxiety, bipolar, psychosis, schizophrenia, borderline personality, situational depression, adjustment disorder, behavioral disorder, brain tumor, malingering, substance abuse, encephalopathy, medication reaction, dementia, hypothyroidism, degenerative neurologic disorder, lupus.... This is not meant to be all-inclusive list EKG interpreted by me (3pts min.). @ -[As above] X-rays interpreted by me (1pt min.). @ -[None done] CT interpreted by me (1pt min.). @ -[None done] U/S interpreted by me (1pt. min.). @ -[None done] What testing was considered but not performed or refused? (CT, X-rays, U/S, labs)? Why? @ -[None] What meds were considered but not given or refused? Why? @ -[None] Did you discuss the management of the patient with other professionals (professionals i.e. , PA, TAKE UP SUPERVISOR, lab, RT, psych nurse, forensic social worker, echo vascular tech, teacher, commissioned defence force officer, caseworker)? Give summary @ -[Case is discussed with EPS personnel. They were able to speak with the patient's caregiver and to set up plan of outpatient care including visit with [facility] tomorrow to discuss medication changes. They also stressed need to return if the patient's condition changes in any way Was smoking cessation discussed for >3mins.? @ -[No] Was critical care preformed (if so, how long)? @ -[No] Were there social determinants of health that impacted care today? How? (Homelessness, low income, unemployed, alcoholism, drug addiction, transportation, low edu. Level, literacy, decrease access to med. care, longterm, rehab)? @ -[No] Was there de-escalation of care discussed even if they declined (Discuss DNR or withdrawal of care, Hospice)? DNR status @ -[No] What co-morbidities impacted this encounter? (DM, HTN, Smoking, COPD, CAD, Cancer, CVA, ARF, Chemo, Hep., AIDS, mental health diagnosis, sleep apnea, morbid obesity)? @ -[None] Was patient admitted / discharged? Hospital course, mention meds given and route, prescriptions, significant lab abnormalities, going to OR and other pertinent info. @ -[See above Undiagnosed new problem with uncertain prognosis? @ -[No] Drug Therapy requiring intensive monitoring for toxicity (Heparin, Nitro, Insulin, Cardizem)? @ -[No] Were any procedures done? @ -[No] Diagnosis/symptom? @ -[Acute altered mental status Acute, or Chronic, or Acute on Chronic? @ -[Acute Uncomplicated (without systemic symptoms) or Complicated (systemic symptoms)? @ -[Uncomplicated Side effects of treatment? @ -[No] Exacerbation, Progression, or Severe Exacerbation? @ -[No] Poses a threat to life or bodily function? How? (Chest pain, [place], [place], pneumonia, PE, COPD, DKA, ARF, appy, cholecystitis, CVA, Diverticulitis, Homicidal, Suicidal, threat to staff... and all critical care pts) @ -[No] - Lab Data Result diagrams: 04/28/23 17:25 04/28/23 17:25 Lab Results 04/28/23 04/28/23 04/28/23 Range/Units 17:15 17:25 17:25 WBC 13.1 H (3.8-10.6) k/uL RBC 4.15 L (4.30-5.90) m/uL Hgb 13.5 (13.0-17.5) gm/dL Hct 38.6 L (39.0-53.0) % MCV 93.0 (80.0-100.0) fL MCH 32.6 (25.0-35.0) pg MCHC 35.1 (31.0-37.0) g/dL RDW 12.6 (11.5-15.5) % Plt Count 205 (150-450) k/uL MPV 8.3 Neutrophils % 67 % Lymphocytes % 24 % Monocytes % 5 % Eosinophils % 2 % Basophils % 1 % Neutrophils # 8.8 H (1.3-7.7) k/uL Lymphocytes # 3.1 (1.0-4.8) k/uL Monocytes # 0.7 (0-1.0) k/uL Eosinophils # 0.2 (0-0.7) k/uL Basophils # 0.1 (0-0.2) k/uL Sodium 141 (137-145) mmol/L Potassium 3.9 (3.5-5.1) mmol/L Chloride 111 H (98-107) mmol/L Carbon Dioxide 25 (22-30) mmol/L Anion Gap 5 mmol/L BUN 16 (9-20) mg/dL Creatinine 0.54 L (0.66-1.25) mg/dL Est GFR (CKD-EPI)AfAm >90 (>60 ml/min/1.73 sqM) Est GFR (CKD-EPI)NonAf >90 (>60 ml/min/1.73 sqM) Glucose 86 (74-99) mg/dL Calcium 9.1 (8.4-10.2) mg/dL Total Bilirubin 0.5 (0.2-1.3) mg/dL AST 23 (17-59) U/L ALT 14 (4-49) U/L Alkaline Phosphatase 71 (38-126) U/L Total Protein 6.4 (6.3-8.2) g/dL Albumin 3.9 (3.5-5.0) g/dL TSH 1.160 (0.465-4.680) mIU/L Urine Color Light Yellow Urine Appearance Clear (Clear) Urine pH 6.0 (5.0-8.0) Ur Specific [place] 1.023 (1.001-1.035) Urine Protein Negative (Negative) Urine Glucose (UA) Negative (Negative) Urine Ketones Negative (Negative) Urine Blood Negative (Negative) Urine Nitrite Negative (Negative) Urine Bilirubin Negative (Negative) Urine Urobilinogen <2.0 (<2.0) mg/dL Ur Leukocyte Esterase Negative (Negative) Disposition Clinical Impression: Altered mental status Disposition: HOME SELF-CARE Condition: Good Instructions (If sedation given, give patient instructions): Altered Mental Status (ED) Is patient prescribed a controlled substance at d/c from ED?: No Referrals: None,Stated [Primary Care Provider] - 1-2 days Bina Diaz MD [REFERRING] - 1-2 days
[2023-04-28 17:35] LABS: Basophils # (A) 0.1 k/uL (0-0.2); Basophils % (A) 1 %; Eosinophils # (A) 0.2 k/uL (0-0.7); Eosinophils % (A) 2 %; HCT 38.6 % (39.0-53.0); HGB 13.5 gm/dL (13.0-17.5); Lymphocytes # (A) 3.1 k/uL (1.0-4.8); Lymphocytes % (A) 24 %; MCH 32.6 pg (25.0-35.0); MCHC 35.1 g/dL (31.0-37.0); Mean Platelet Volume 8.3; Monocytes # (A) 0.7 k/uL (0-1.0); Monocytes % (A) 5 %; Neutrophils # (A) 8.8 k/uL (1.3-7.7); Neutrophils % (A) 67 %; Platelet Count 205 k/uL (150-450); RBC 4.15 m/uL (4.30-5.90); RDW 12.6 % (11.5-15.5); WBC 13.1 k/uL (3.8-10.6)
[2023-04-28 17:45] LABS: ALT 14 U/L (4-49); AST 23 U/L (17-59); African American GFR (CKD) >90 (>60 ml/min/1.73 sqM); Albumin 3.9 g/dL (3.5-5.0); Alkaline Phosphatase 71 U/L (38-126); Anion Gap 5 mmol/L; Blood Urea Nitrogen 16 mg/dL (9-20); Calcium 9.1 mg/dL (8.4-10.2); Carbon Dioxide 25 mmol/L (22-30); Chloride 111 mmol/L (98-107); Glucose 86 mg/dL (74-99); Non-African American GFR(CKD) >90 (>60 ml/min/1.73 sqM); Potassium 3.9 mmol/L (3.5-5.1); Sodium 141 mmol/L (137-145); Total Bilirubin 0.5 mg/dL (0.2-1.3); Total Protein 6.4 g/dL (6.3-8.2)
[2023-04-28 18:33] VITALS: TEMP 98.1
[2023-04-28 18:34] LABS: Appearance,Urine Clear (Clear); Bilirubin,Urine Negative (Negative); Blood,Urine Negative (Negative); Color,Urine Light Yellow; Glucose,Urine (UA) Negative (Negative); Ketones,Urine Negative (Negative); Leukocyte Esterase,Urine Negative (Negative); Nitrite,Urine Negative (Negative); Protein,Urine Negative (Negative); Specific Gravity,Urine 1.023 (1.001-1.035); Urobilinogen,Urine <2.0 mg/dL (<2.0)
[2023-04-28 22:48] VITALS: BP 114/56; PULSE 50; RESP 17
== END 2023-04-28 22:21 | disposition home or self-care (01) ==
LOC: EC 16:24 → EEVIPCON 16:24 → EC 22:21
DX: R41.82 Altered mental status, unspecified (principal); R00.1 Bradycardia, unspecified; F31.9 Bipolar disorder, unspecified; F17.200 Nicotine dependence, unspecified, uncomplicated; Z79.899 Other long term (current) drug therapy
CPT/HCPCS: 36415; 80053; 81003; 82075; 84443; 85025; 99285

== ENCOUNTER 2023-04-30 22:15 | Emergency (ER) | payer BC, MEDICAID ==
[2023-04-30 22:44] VITALS: BP 128/85; PULSE 91; RESP 20; TEMP 98
--- NOTE | 2023-04-30 22:56 | ED ---
General Adult HPI - General Source: patient, family Mode of arrival: ambulatory <Kiel Castillo - Last Filed: 05/01/23 06:30> <Carla Conklin - Last Filed: 05/03/23 00:09> - General Chief complaint: Psychiatric Symptoms Stated complaint: mental health Time Seen by Provider: 04/30/23 22:27 - History of Present Illness Initial comments: Dictation was produced using [employer] dictation software. please excuse any grammatical, word or spelling errors. Chief Complaint: 57-year-old male presents to the emergency department for psychiatric evaluation History of Present Illness: Patient is a 57-year-old male with history of mental debility. Patient is a poor historian. According to petition patient had showed homicidal behavior along with excessive laughing. Patient denies any complaints. Patient is uncooperative not answering most questions The ROS documented in this emergency department record has been reviewed and confirmed by me. Those systems with pertinent positive or negative responses have been documented in the HPI. All other systems are other negative and/or noncontributory. (Kiel Castillo) - Related Data Home Medications Medication Instructions Recorded Confirmed risperiDONE ER inj [Perseris] 120 mg SQ Q30D 12/26/22 05/02/23 Sertraline [Zoloft] 100 mg PO DAILY 04/30/23 05/02/23 Allergies Allergy/AdvReac Type Severity Reaction Status Date / Time No Known Allergies Allergy Verified 05/02/23 13:12 Review of Systems ROS Other: All systems not noted in ROS Statement are negative. <Kiel Castillo - Last Filed: 05/01/23 06:30> ROS Other: All systems not noted in ROS Statement are negative. <Carla Conklin - Last Filed: 05/03/23 00:09> ROS Statement: Those systems with pertinent positive or pertinent negative responses have been documented in the HPI. Past Medical History Past Medical History: No Reported History Additional Past Medical History / Comment(s): UTI, Urinary retention History of Any Multi-Drug Resistant Organisms: None Reported Past Surgical History: No Surgical Hx Reported Past Psychological History: Bipolar, Depression Smoking Status: Current every day smoker Past Alcohol Use History: None Reported Past Drug Use History: None Reported <Kiel Castillo - Last Filed: 05/01/23 06:30> General Exam <DannymirnaMaydaann-marie Johnson - Last Filed: 05/01/23 06:30> - General Exam Comments Initial Comments: General: Well-appearing, nontoxic, no acute distress. Head: Normocephalic, atraumatic Eyes: PERRLA, EOMI ENT: Airway patent Chest: Nonlabored breathing Skin: No visual rash, normal skin tone Neuro: Alert and oriented 3 Musculoskeletal: No gross abnormalities (Kiel Castillo) Course Vital Signs 04/30/23 22:18 Temperature 98 F Pulse Rate 91 Respiratory 20 Rate Blood Pressure 128/85 O2 Sat by Pulse 98 Oximetry Medical Decision Making <Kiel Castillo - Last Filed: 05/01/23 06:30> <Carla Conklin - Last Filed: 05/03/23 00:09> - Medical Decision Making Was pt. sent in by a medical professional or institution (, [place], [employer], urgent care, hospital, or custodial...) When possible be specific @ -No Did you speak to anyone other than the patient for history (EMS, parent, family, police, friend...)? What history was obtained from this source @ -No Did you review nursing and triage notes (agree or disagree)? Why? @ -I reviewed and agree with nursing and triage notes Were old charts reviewed (outside hosp., previous admission, EMS record, old EKG, old radiological studies, urgent care reports/EKG's, custodial records)? Report findings @ -Petition was reviewed as discussed above Differential Diagnosis (chest pain, altered mental status, abdominal pain women, abdominal pain men, vaginal bleeding, musculoskeletal, weakness, fever, dyspnea, syncope, headache, dizziness, GI bleed, back pain, seizure, CVA, palpatations, mental health)? @ -Differential Mental Health: Depression, anxiety, bipolar, psychosis, schizophrenia, borderline personality, situational depression, adjustment disorder, behavioral disorder, brain tumor, malingering, substance abuse, encephalopathy, medication reaction, dementia, hypothyroidism, degenerative neurologic disorder, lupus.... This is not meant to be all-inclusive list EKG interpreted by me (3pts min.). @ -None done X-rays interpreted by me (1pt min.). @ -None done CT interpreted by me (1pt min.). @ -None done U/S interpreted by me (1pt. min.). @ -None done What testing was considered but not performed or refused? (CT, X-rays, U/S, labs)? Why? @ -None What meds were considered but not given or refused? Why? @ -None Did you discuss the management of the patient with other professionals (professionals i.e. DrFelice, PA, [employer], lab, RT, psych nurse, social services specialist, coagulation operator, teacher, adult parole officer, case planner)? Give summary @ -No Was smoking cessation discussed for >3mins.? @ -No Was critical care preformed (if so, how long)? @ -No Were there social determinants of health that impacted care today? How? (Homelessness, low income, unemployed, alcoholism, drug addiction, transportation, low edu. Level, literacy, decrease access to med. care, detention, rehab)? @ -No Was there de-escalation of care discussed even if they declined (Discuss DNR or withdrawal of care, Hospice)? DNR status @ -No What co-morbidities impacted this encounter? (DM, HTN, Smoking, COPD, CAD, Cancer, CVA, ARF, Chemo, Hep., AIDS, mental health diagnosis, sleep apnea, morbid obesity)? @ -None Was patient admitted / discharged? Hospital course, mention meds given and route, prescriptions, significant lab abnormalities, going to OR and other pertinent info. @ -57-year-old male brought to the emergency department for psychiatric e valuation. C according to petition patient's guardian did not feel that they were able to care for the patient any longer and failed. Further safety due to his excessive laughing and reported homicidal behavior. Patient well-appearing at the bedside. Medically cleared for EPS evaluation Patient pending EPS evaluation for further recommendation. Signed out to oncoming physician at 7:00 AM Undiagnosed new problem with uncertain prognosis? @ -No Drug Therapy requiring intensive monitoring for toxicity (Heparin, Nitro, Insulin, Cardizem)? @ -No Were any procedures done? @ -No Diagnosis/symptom? Acute, or Chronic, or Acute on Chronic? Uncomplicated (without systemic symptoms) or Complicated (systemic symptoms)? @ -Psychiatric evaluation (Bayudan,Kiel D) Was patient admitted / discharged? Hospital course, mention meds given and route, prescriptions, significant lab abnormalities, going to OR and other pertinent info. @ -Patient was evaluated by EPS and deemed stable for discharge Undiagnosed new problem with uncertain prognosis? @ -No Drug Therapy requiring intensive monitoring for toxicity (Heparin, Nitro, Insulin, Cardizem)? @ -No Were any procedures done? @ -No Diagnosis/symptom? @ -Intellectual disability, aggressive behavior Acute, or Chronic, or Acute on Chronic? @ -Chronic Uncomplicated (without systemic symptoms) or Complicated (systemic symptoms)? @ -Complicated Side effects of treatment? @ -No Exacerbation, Progression, or Severe Exacerbation? @ -No Poses a threat to life or bodily function? How? (Chest pain, USA, DC, pneumonia, PE, COPD, DKA, ARF, appy, cholecystitis, CVA, Diverticulitis, Homicidal, Suicidal, threat to staff... and all critical care pts) @ -No (Carla Conklin) - Lab Data Lab Results 05/01/23 Range/Units 09:08 Urine Color Yellow Urine Appearance Clear (Clear) Urine pH 6.0 (5.0-8.0) Ur Specific [place] 1.025 (1.001-1.035) Urine Protein Negative (Negative) Urine Glucose (UA) Negative (Negative) Urine Ketones Negative (Negative) Urine Blood Negative (Negative) Urine Nitrite Negative (Negative) Urine Bilirubin Negative (Negative) Urine Urobilinogen <2.0 (<2.0) mg/dL Ur Leukocyte Esterase Negative (Negative) Urine Opiates Screen Not Detected (NotDetected) Ur Oxycodone Screen Not Detected (NotDetected) Urine Methadone Screen Not Detected (NotDetected) Ur Barbiturates Screen Not Detected (NotDetected) U Tricyclic Antidepress Not Detected (NotDetected) Ur Phencyclidine Scrn Not Detected (NotDetected) Ur Amphetamines Screen Not Detected (NotDetected) U Methamphetamines Scrn Not Detected (NotDetected) U Benzodiazepines Scrn Not Detected (NotDetected) Urine Cocaine Screen Not Detected (NotDetected) U Marijuana (THC) Screen Detected H (NotDetected) Disposition <Kiel Castillo - Last Filed: 05/01/23 06:30> Is patient prescribed a controlled substance at d/c from ED?: No Time of Disposition: 10:31 <Carla Conklin - Last Filed: 05/03/23 00:09> Clinical Impression: Intellectual disability Disposition: HOME SELF-CARE Condition: Stable Additional Instructions: You have been medically cleared for discharge home Referrals: None,Stated [Primary Care Provider] - 1-2 days
[2023-05-01 09:45] LABS: Appearance,Urine Clear (Clear); Bilirubin,Urine Negative (Negative); Blood,Urine Negative (Negative); Color,Urine Yellow; Glucose,Urine (UA) Negative (Negative); Ketones,Urine Negative (Negative); Leukocyte Esterase,Urine Negative (Negative); Nitrite,Urine Negative (Negative); Protein,Urine Negative (Negative); Specific Gravity,Urine 1.025 (1.001-1.035); Urobilinogen,Urine <2.0 mg/dL (<2.0)
[2023-05-01 09:58] LABS: Amphetamine Screen,Urine Not Detected (NotDetected); Barbiturate Screen,Urine Not Detected (NotDetected); Benzodiazepines Screen,Urine Not Detected (NotDetected); Cocaine Screen,Urine Not Detected (NotDetected); Methadone Screen, Urine Not Detected (NotDetected); Opiate Screen,Urine Not Detected (NotDetected); Oxycodone Screen, Urine Not Detected (NotDetected); Phencyclidine Screen,Urine Not Detected (NotDetected); Tricyclic Antidepressant,Urine Not Detected (NotDetected); Urn Cannabinoid Scrn Detected (NotDetected)
== END 2023-05-01 11:35 | disposition home or self-care (01) ==
LOC: EC 22:15
DX: F79 Unspecified intellectual disabilities (principal); F31.9 Bipolar disorder, unspecified; F17.200 Nicotine dependence, unspecified, uncomplicated; Z79.899 Other long term (current) drug therapy
CPT/HCPCS: 80306; 81003; 82075; 99285

== ENCOUNTER 2023-05-07 17:01 | Emergency (ER) | payer BC ==
[2023-05-07 17:31] LABS: Glucose,Whole Blood 101 mg/dL (70-110)
--- NOTE | 2023-05-07 17:40 | ED ---
General Adult HPI - General Source: patient, RN notes reviewed, Caregiver ([facility] worker) Mode of arrival: ambulatory Limitations: no limitations <Kassi Alicea - Last Filed: 05/07/23 17:38> <Sienna Goff - Last Filed: 05/07/23 22:59> - General Chief complaint: Neuro Symptoms/Deficit Stated complaint: Neuro Symptoms Time Seen by Provider: 05/07/23 17:39 - History of Present Illness Initial comments: Quick note: Patient is a 57-year-old male presented to ER with a chief complaint of short-term memory loss. [facility] worker providing most past medical history. She is only on him for about a week. Patient recently moved into [facility]. They report he is having difficulty with short-term memory and needing more assistance than they can provide for ADLs. Patient has no current complaints. [facility] worker reports [facility] would like "medical clearance". (Kassi Alicea) 57-year-old male presents to the emergency department for evaluation of memory difficulties. Patient presents with [facility] worker. She states that she has been working with him today around 1 week and patient was moved into the [facility] yesterday. They are concerned for his short-term memory difficulties. T here is concerned that he may need more assistance. According to the [facility] worker they will take him back after patient has a medical workup. Patient denies any symptoms currently. (Sienna Goff) - Related Data Home Medications Medication Instructions Recorded Confirmed risperiDONE ER inj [Perseris] 120 mg SQ Q30D 12/26/22 05/02/23 Sertraline [Zoloft] 100 mg PO DAILY 04/30/23 05/02/23 Allergies Allergy/AdvReac Type Severity Reaction Status Date / Time No Known Allergies Allergy Verified 05/07/23 17:32 Review of Systems ROS Other: All systems not noted in ROS Statement are negative. <Kassi Alicea - Last Filed: 05/07/23 17:38> ROS Other: All systems not noted in ROS Statement are negative. <Sienna Goff - Last Filed: 05/07/23 22:59> ROS Statement: Those systems with pertinent positive or pertinent negative responses have been documented in the HPI. Past Medical History Past Medical History: No Reported History Additional Past Medical History / Comment(s): UTI, Urinary retention History of Any Multi-Drug Resistant Organisms: None Reported Past Surgical History: No Surgical Hx Reported Past Anesthesia/Blood Transfusion Reactions: No Reported Reaction Past Psychological History: Bipolar, Depression Smoking Status: Current every day smoker Past Alcohol Use History: None Reported Past Drug Use History: None Reported - Past Family History Mother History Unknown: Yes <Kassi Alicea - Last Filed: 05/07/23 17:38> General Exam <Kassi Alicea - Last Filed: 05/07/23 17:38> Limitations: no limitations General appearance: alert, in no apparent distress Head exam: Present: atraumatic, normocephalic, normal inspection Eye exam: Present: normal appearance, PERRL, EOMI. Absent: scleral icterus, conjunctival injection, periorbital swelling ENT exam: Present: normal exam, mucous membranes moist Neck exam: Present: normal inspection. Absent: tenderness, meningismus, lymphadenopathy Respiratory exam: Present: normal lung sounds bilaterally. Absent: respiratory distress, wheezes, rales, rhonchi, stridor Cardiovascular Exam: Present: regular rate, normal rhythm, normal heart sounds. Absent: systolic murmur, diastolic murmur, rubs, gallop, clicks GI/Abdominal exam: Present: soft, normal bowel sounds. Absent: distended, tenderness, guarding, rebound, rigid Extremities exam: Present: normal inspection, full ROM, normal capillary refill. Absent: tenderness, pedal edema, joint swelling, calf tenderness Back exam: Present: normal inspection Neurological exam: Present: alert, oriented X3, CN II-XII intact, normal gait Psychiatric exam: Present: normal affect, normal mood Skin exam: Present: warm, dry, intact, normal color. Absent: rash <Sienna Goff - Last Filed: 05/07/23 22:59> - General Exam Comments Initial Comments: Visual Physical Exam Vital signs reviewed General: Well-appearing, nontoxic, no acute distress. Head: Normocephalic, atraumatic Eyes: PERRLA, EOMI ENT: Airway patent Chest: Nonlabored breathing Skin: No visual rash, normal skin tone Neuro: Alert and oriented 3 Musculoskeletal: No gross abnormalities (Kassi Alicea) Course Vital Signs 05/07/23 17:23 Temperature 98.5 F Pulse Rate 61 Respiratory 18 Rate Blood Pressure 123/76 O2 Sat by Pulse 96 Oximetry Medical Decision Making <Kassi Alicea - Last Filed: 05/07/23 17:38> - Lab Data Result diagrams: 05/07/23 18:15 05/07/23 19:12 <JaiangeliacheriSienna - Last Filed: 05/07/23 22:59> - Medical Decision Making I performed the quick note portion of this chart. Electronically signed by Kassi Alicea PA-C (Kassi Alicea) Was pt. sent in by a medical professional or institution (TEGAN [place], CHAR FILTER OPERATOR, urgent care, hospital, or long-term...) When possible be specific @ -No Did you speak to anyone other than the patient for history (EMS, parent, family, police, friend...)? What history was obtained from this source @ -No Did you review nursing and triage notes (agree or disagree)? Why? @ -I reviewed and agree with nursing and triage notes Were old charts reviewed (outside hosp., previous admission, EMS record, old EKG, old radiological studies, urgent care reports/EKG's, long-term records)? Report findings @ -No old charts were reviewed Differential Diagnosis (chest pain, altered mental status, abdominal pain women, abdominal pain men, vaginal bleeding, weakness, fever, dyspnea, syncope, headache, dizziness, GI bleed, back pain, seizure, CVA, palpatations, mental health, musculoskeletal)? @ -Differential Headache: Migraine, tension, cluster, carbon monoxide, central venous thrombosis, pension karma temporal arteritis, acute closure glaucoma, intercranial hemorrhage, mastoiditis, sinusitis, head injury, this is not meant to be an all-inclusive list. EKG interpreted by me (3pts min.). @ -EKG at 1803 shows sinus bradycardia rate 53, PA 139, QRS 85, QT/QTc [id number] X-rays interpreted by me (1pt min.). @ -None done CT interpreted by me (1pt min.). @ -CT brain shows no acute intracranial hemorrhage or mass effect U/S interpreted by me (1pt. min.). @ -None done What testing was considered but not performed or refused? (CT, X-rays, U/S, lab s)? Why? @ -None What meds were considered but not given or refused? Why? @ -None Did you discuss the management of the patient with other professionals (professionals i.e. DrFelice, PA, CHAR FILTER OPERATOR, lab, RT, psych nurse, social work associate, upper shaper, teacher, special weapons unit officer, trimming caser)? Give summary @ -No Was smoking cessation discussed for >3mins.? @ -No Was critical care preformed (if so, how long)? @ -No Were there social determinants of health that impacted care today? How? (Homelessness, low income, unemployed, alcoholism, drug addiction, transportation, low edu. Level, literacy, decrease access to med. care, [facility], rehab)? @ -No Was there de-escalation of care discussed even if they declined (Discuss DNR or withdrawal of care, Hospice)? DNR status @ -No What co-morbidities impacted this encounter? (DM, HTN, Smoking, COPD, CAD, Cancer, CVA, ARF, Chemo, Hep., AIDS, mental health diagnosis, sleep apnea, morbid obesity)? @ -None Was patient admitted / discharged? Hospital course, mention meds given and route, prescriptions, significant lab abnormalities, going to OR and other pertinent info. @ -Discharged. Patient presented to the emergency department with [facility] worker for evaluation of memory difficulties. This has been going on since December. He was admitted at that time and had CT, MRI performed. He saw neurology at that time. Laboratory studies obtained today essentially unremarkable including CBC, CMP, UA. CT brain obtained which shows no acute intracranial hemorrhage or mass effect, chronic mastoiditis. Advised to follow-up with neurology. Patient will be discharged back to [facility]. Patient stable at time of discharge. Case discussed with Dr. Tran Undiagnosed new problem with uncertain prognosis? @ -No Drug Therapy requiring intensive monitoring for toxicity (Heparin, Nitro, Insulin, Cardizem)? @ -No Were any procedures done? @ -No Diagnosis/symptom? @ -Altered mental status Acute, or Chronic, or Acute on Chronic? @ -Acute on chronic Uncomplicated (without systemic symptoms) or Complicated (systemic symptoms)? @ -Uncomplicated Side effects of treatment? @ -No Exacerbation, Progression, or Severe Exacerbation? @ -No Poses a threat to life or bodily function? How? (Chest pain, USA, MA, pneumonia, PE, COPD, DKA, ARF, appy, cholecystitis, CVA, Diverticulitis, Homicidal, Suicidal, threat to staff... and all critical care pts) @ -No (IsraelcheriSienna) - Lab Data Lab Results 05/07/23 05/07/23 05/07/23 Range/Units 17:29 18:15 18:15 WBC 11.1 H (3.8-10.6) k/uL RBC 4.39 (4.30-5.90) m/uL Hgb 14.0 (13.0-17.5) gm/dL Hct 41.2 (39.0-53.0) % MCV 93.7 (80.0-100.0) fL MCH 31.9 (25.0-35.0) pg MCHC 34.1 (31.0-37.0) g/dL RDW 12.6 (11.5-15.5) % Plt Count 219 (150-450) k/uL MPV 8.3 Sodium (137-145) mmol/L Potassium (3.5-5.1) mmol/L Chloride (98-107) mmol/L Carbon Dioxide (22-30) mmol/L Anion Gap mmol/L BUN (9-20) mg/dL Creatinine (0.66-1.25) mg/dL Est GFR (CKD-EPI)AfAm (>60 ml/min/1.73 sqM) Est GFR (CKD-EPI)NonAf (>60 ml/min/1.73 sqM) Glucose (74-99) mg/dL POC Glucose (mg/dL) 101 (70-110) mg/dL POC Glu Crtts ID Johanna, Jeni Calcium (8.4-10.2) mg/dL Total Bilirubin (0.2-1.3) mg/dL AST (17-59) U/L ALT (4-49) U/L Alkaline Phosphatase (38-126) U/L Total Protein (6.3-8.2) g/dL Albumin (3.5-5.0) g/dL Urine Color Colorless Urine Appearance Clear (Clear) Urine pH 5.5 (5.0-8.0) Ur Specific Pearson 1.015 (1.001-1.035) Urine Protein Negative (Negative) Urine Glucose (UA) Negative (Negative) Urine Ketones Negative (Negative) Urine Blood Negative (Negative) Urine Nitrite Negative (Negative) Urine Bilirubin Negative (Negative) Urine Urobilinogen <2.0 (<2.0) mg/dL Ur Leukocyte Esterase Negative (Negative) 05/07/23 Range/Units 19:12 WBC (3.8-10.6) k/uL RBC (4.30-5.90) m/uL Hgb (13.0-17.5) gm/dL Hct (39.0-53.0) % MCV (80.0-100.0) fL MCH (25.0-35.0) pg MCHC (31.0-37.0) g/dL RDW (11.5-15.5) % Plt Count (150-450) k/uL MPV Sodium 140 (137-145) mmol/L Potassium 4.7 (3.5-5.1) mmol/L Chloride 110 H (98-107) mmol/L Carbon Dioxide 23 (22-30) mmol/L Anion Gap 7 mmol/L BUN 16 (9-20) mg/dL Creatinine 0.59 L (0.66-1.25) mg/dL Est GFR (CKD-EPI)AfAm >90 (>60 ml/min/1.73 sqM) Est GFR (CKD-EPI)NonAf >90 (>60 ml/min/1.73 sqM) Glucose 92 (74-99) mg/dL POC Glucose (mg/dL) (70-110) mg/dL POC Glu Crtts ID Calcium 9.6 (8.4-10.2) mg/dL Total Bilirubin 0.5 (0.2-1.3) mg/dL AST 19 (17-59) U/L ALT 16 (4-49) U/L Alkaline Phosphatase 76 (38-126) U/L Total Protein 6.8 (6.3-8.2) g/dL Albumin 4.1 (3.5-5.0) g/dL Urine Color Urine Appearance (Clear) Urine pH (5.0-8.0) Ur Specific Pearson (1.001-1.035) Urine Protein (Negative) Urine Glucose (UA) (Negative) Urine Ketones (Negative) Urine Blood (Negative) Urine Nitrite (Negative) Urine Bilirubin (Negative) Urine Urobilinogen (<2.0) mg/dL Ur Leukocyte Esterase (Negative) Disposition <Kassi Alicea - Last Filed: 05/07/23 17:38> Is patient prescribed a controlled substance at d/c from ED?: No <Sienna Goff - Last Filed: 05/07/23 22:59> Clinical Impression: Altered mental status Disposition: HOME SELF-CARE Condition: Stable Instructions (If sedation given, give patient instructions): Altered Mental Status (ED) Additional Instructions: Please follow up with neurology. Return to the emergency department for new or worsening symptoms. Referrals: None,Stated [Primary Care Provider] - 1-2 days Evelyn Frederick MD [STAFF PHYSICIAN] - 1-2 days Michael Lopez MD [STAFF PHYSICIAN] - 1-2 days
[2023-05-07 18:02] VITALS: BP 123/76; PULSE 61; RESP 18; TEMP 98.5
[2023-05-07 18:24] LABS: HCT 41.2 % (39.0-53.0); MCH 31.9 pg (25.0-35.0); MCHC 34.1 g/dL (31.0-37.0); MCV 93.7 fL (80.0-100.0); Mean Platelet Volume 8.3; Platelet Count 219 k/uL (150-450); RBC 4.39 m/uL (4.30-5.90); RDW 12.6 % (11.5-15.5); WBC 11.1 k/uL (3.8-10.6)
--- NOTE | 2023-05-07 19:21 | CT ---
EXAMINATION TYPE: CT brain wo con CT DLP: 1146.4 mGycm, Automated exposure control for dose reduction was used. DATE OF EXAM: 05/07/2023 7:03 PM COMPARISON: MR brain 12/11/2022, CT brain 12/08/2022. CLINICAL INDICATION:Male, 57 years old with history of confusion, confusion TECHNIQUE: Brain: Axial CT images of the brain were obtained with coronal and sagittal reformats created and rev iewed. Contrast used: None. Oral contrast used: None. FINDINGS: Extra-axial spaces: No abnormal extra-axial fluid collections. Ventricular system: Within normal limits. Cerebral parenchyma: No increased attenuation to suggest acute intraparenchymal hemorrhage. The gra y-white matter interface appears maintained. No significant atrophy. White matter unremarkable by C T. Cerebellum: No acute abnormality. Mass effect: No evidence of mass effect or midline shift. Intracranial vasculature: Unremarkable Soft tissues: No acute or concerning abnormality. Visualized orbits: Orbital contents appear grossly intact. Calvarium/osseous structures: No evidence of calvarial fracture. Paranasal sinuses and mastoid air cells: Lobular mucosal thickening again seen in the right more than left maxillary sinuses. Mild nasal septal deviation towards the right anteriorly. No significant mid dle air fluid is currently seen. Partial opacification and sclerotic appearance of some of the left m astoid air cells, likely chronic changes. No acute superimposed osseous changes. MRI is more sensitive for detecting acute processes such as infarct, and may be considered if clinica lly warranted. IMPRESSION: 1. No acute intracranial CT abnormality. 2. Paranasal sinus mucosal thickening. 3. 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 Correlate clinically.
[2023-05-07 19:31] LABS: ALT 16 U/L (4-49); AST 19 U/L (17-59); African American GFR (CKD) >90 (>60 ml/min/1.73 sqM); Albumin 4.1 g/dL (3.5-5.0); Alkaline Phosphatase 76 U/L (38-126); Anion Gap 7 mmol/L; Blood Urea Nitrogen 16 mg/dL (9-20); Calcium 9.6 mg/dL (8.4-10.2); Carbon Dioxide 23 mmol/L (22-30); Chloride 110 mmol/L (98-107); Glucose 92 mg/dL (74-99); Non-African American GFR(CKD) >90 (>60 ml/min/1.73 sqM); Potassium 4.7 mmol/L (3.5-5.1); Sodium 140 mmol/L (137-145); Total Bilirubin 0.5 mg/dL (0.2-1.3); Total Protein 6.8 g/dL (6.3-8.2)
[2023-05-07 19:46] LABS: Appearance,Urine Clear (Clear); Bilirubin,Urine Negative (Negative); Blood,Urine Negative (Negative); Color,Urine Colorless; Glucose,Urine (UA) Negative (Negative); Ketones,Urine Negative (Negative); Leukocyte Esterase,Urine Negative (Negative); Nitrite,Urine Negative (Negative); PH, Urine 5.5 (5.0-8.0); Protein,Urine Negative (Negative); Specific Gravity,Urine 1.015 (1.001-1.035); Urobilinogen,Urine <2.0 mg/dL (<2.0)
== END 2023-05-07 20:57 | disposition home or self-care (01) ==
LOC: EC 17:01
DX: R41.82 Altered mental status, unspecified (principal); R00.1 Bradycardia, unspecified; F31.9 Bipolar disorder, unspecified; F17.200 Nicotine dependence, unspecified, uncomplicated; Z79.899 Other long term (current) drug therapy
CPT/HCPCS: 36415; 70450; 80053; 81003; 85027; 93005; 99284

== ENCOUNTER 2023-05-13 17:26 | Emergency (ER) | payer BC ==
--- NOTE | 2023-05-13 17:53 | ED ---
General Adult HPI - General Chief complaint: Psychiatric Symptoms Stated complaint: Petitioned/Mental Health Time Seen by Provider: 05/13/23 17:35 Source: patient, RN notes reviewed, old records reviewed Mode of arrival: ambulatory Limitations: no limitations - History of Present Illness Initial comments: This is a 57-year-old male who presents to the emergency department from a senior care. residential caregiver has brought the patient in because he has been making suicidal comments. Patient states he wants to jump in front of traffic and later in the day he said he want to cut off his fingers. And then later in the day he was chasing some women down the street. I asked the patient why he was chasing him down the street and he states that he likes him. Patient currently does not remember saying he wants to kill himself but the caregiver sa ys definitively he made these comments earlier. Patient is only been in the care of this senior care for a week to a week and a half. Patient has no physical complaints today. - Related Data Home Medications Medication Instructions Recorded Confirmed risperiDONE ER inj [Perseris] 120 mg SQ Q30D 12/26/22 05/02/23 Sertraline [Zoloft] 100 mg PO DAILY 04/30/23 05/02/23 Allergies Allergy/AdvReac Type Severity Reaction Status Date / Time No Known Allergies Allergy Verified 05/07/23 17:32 Review of Systems ROS Statement: Those systems with pertinent positive or pertinent negative responses have been documented in the HPI. ROS Other: All systems not noted in ROS Statement are negative. Past Medical History Past Medical History: No Reported History Additional Past Medical History / Comment(s): UTI, Urinary retention History of Any Multi-Drug Resistant Organisms: None Reported Past Surgical History: No Surgical Hx Reported Past Anesthesia/Blood Transfusion Reactions: No Reported Reaction Past Psychological History: Bipolar, Depression Smoking Status: Current every day smoker Past Alcohol Use History: None Reported Past Drug Use History: None Reported - Past Family History Mother History Unknown: Yes General Exam - General Exam Comments Initial Comments: GENERAL: Patient is well-developed and well-nourished. Patient is nontoxic and well- hydrated and is in no acute distress. ENT: Neck is soft and supple. No significant lymphadenopathy is noted. Oropharynx is clear. Moist mucous membranes. Neck has full range of motion without eliciting any pain. EYES: The sclera were anicteric and conjunctiva were pink and moist. Extraocular movements were intact and pupils were equal round and reactive to light. Eyelids were unremarkable. PULMONARY: Unlabored respirations. Good breath sounds bilaterally. No audible rales rhonchi or wheezing was noted. CARDIOVASCULAR: There is a regular rate and rhythm without any murmurs gallops or rubs. SKIN: Skin is clear with no lesions or rashes and otherwise unremarkable. NEUROLOGIC: Patient is alert and oriented x 2. Cranial nerves II through XII are grossly intact. Motor and sensory are also intact. Normal speech, volume and content. Symmetrical smile. MUSCULOSKELETAL: Normal extremities with adequate strength and full range of motion. LYMPHATICS: No significant lymphadenopathy is noted PSYCHIATRIC: Patient states that he cannot remember making any comments about suicide. Limitations: no limitations Course Vital Signs 05/13/23 17:31 Temperature 99.2 F Pulse Rate 65 Respiratory 16 Rate Blood Pressure 150/84 O2 Sat by Pulse 98 Oximetry Medical Decision Making - Medical Decision Making Was pt. sent in by a medical professional or institution (, PA, FOOD AND BEVERAGE ASSISTANT, urgent care, hospital, or fci...) When possible be specific @ -Patient was brought in by her senior care Did you speak to anyone other than the patient for history (EMS, parent, family, police, friend...)? What history was obtained from this source @ -Patient's healthcare provider gave all of the history Did you review nursing and triage notes (agree or disagree)? Why? @ -I reviewed and agree with nursing and triage notes Were old charts reviewed (outside hosp., previous admission, EMS record, old EKG, old radiological studies, urgent care reports/EKG's, fci records)? Report findings @ -No old charts were reviewed Differential Diagnosis (chest pain, altered mental status, abdominal pain women, abdominal pain men, vaginal bleeding, weakness, fever, dyspnea, syncope, headache, dizziness, GI bleed, back pain, seizure, CVA, palpatations, mental health, musculoskeletal)? @ -Differential Mental Health Depression, anxiety, bipolar, psychosis, schizophrenia, borderline personality, situational depression, adjustment disorder, behavioral disorder, brain tumor, malingering, substance abuse, encephalopathy, medication reaction, dementia, hypothyroidism, degenerative neurologic disorder, lupus.... This is not meant to be all-inclusive list EKG interpreted by me (3pts min.). @ -As above X-rays interpreted by me (1pt min.). @ -None done CT interpreted by me (1pt min.). @ -None done U/S interpreted by me (1pt. min.). @ -None done What testing was considered but not performed or refused? (CT, X-rays, U/S, labs)? Why? @ -None What meds were considered but not given or refused? Why? @ -None Did you discuss the management of the patient with other professionals (professionals i.e. , PA, FOOD AND BEVERAGE ASSISTANT, lab, RT, psych nurse, social human services assistants, community outreach worker, teacher, juvenile correctional officer, child welfare caseworker)? Give summary @ -I spoke with EPS nurse and she spoke with the psychiatrist and it was agreed upon that the patient needed inpatient care and need to be transferred to another psych facility where they had room to take him Was smoking cessation discussed for >3mins.? @ -No Was critical care preformed (if so, how long)? @ -No Were there social determinants of health that impacted care today? How? (Homelessness, low income, unemployed, alcoholism, drug addiction, transportation, low edu. Level, literacy, decrease access to med. care, fdc, rehab)? @ -No Was there de-escalation of care discussed even if they declined (Discuss DNR or withdrawal of care, Hospice)? DNR status @ -No What co-morbidities impacted this encounter? (DM, HTN, Smoking, COPD, CAD, Cancer, CVA, ARF, Chemo, Hep., AIDS, mental health diagnosis, sleep apnea, morbid obesity)? @ -None Was patient admitted / discharged? Hospital course, mention meds given and route, prescriptions, significant lab abnormalities, going to OR and other pertinent info. @ -Patient will be transferred to outside psych facility Undiagnosed new problem with uncertain prognosis? @ -No Drug Therapy requiring intensive monitoring for toxicity (Heparin, Nitro, Insulin, Cardizem)? @ -No Were any procedures done? @ -No Diagnosis/symptom? @ -Acute psychosis Acute, or Chronic, or Acute on Chronic? @ -Acute Uncomplicated (without systemic symptoms) or Complicated (systemic symptoms)? @ -Complicated Side effects of treatment? @ -No Exacerbation, Progression, or Severe Exacerbation? @ -No Poses a threat to life or bodily function? How? (Chest pain, USA, CT, pneumonia, PE, COPD, DKA, ARF, appy, cholecystitis, CVA, Diverticulitis, Homicidal, [place] icidal, threat to staff... and all critical care pts) @ -No - Lab Data Result diagrams: 05/13/23 19:37 Lab Results 05/13/23 05/13/23 05/13/23 Range/Units 18:05 19:37 19:42 WBC 12.7 H (3.8-10.6) k/uL RBC 4.12 L (4.30-5.90) m/uL Hgb 13.0 (13.0-17.5) gm/dL Hct 38.6 L (39.0-53.0) % MCV 93.8 (80.0-100.0) fL MCH 31.7 (25.0-35.0) pg MCHC 33.8 (31.0-37.0) g/dL RDW 13.2 (11.5-15.5) % Plt Count 213 (150-450) k/uL MPV 8.5 Neutrophils % 58 % Lymphocytes % 31 % Monocytes % 5 % Eosinophils % 3 % Basophils % 1 % Neutrophils # 7.3 (1.3-7.7) k/uL Lymphocytes # 3.9 (1.0-4.8) k/uL Monocytes # 0.7 (0-1.0) k/uL Eosinophils # 0.4 (0-0.7) k/uL Basophils # 0.1 (0-0.2) k/uL Urine Color Colorless Urine Appearance Clear (Clear) Urine pH 5.5 (5.0-8.0) Ur Specific [place] 1.010 (1.001-1.035) Urine Protein Negative (Negative) Urine Glucose (UA) Negative (Negative) Urine Ketones Negative (Negative) Urine Blood Negative (Negative) Urine Nitrite Negative (Negative) Urine Bilirubin Negative (Negative) Urine Urobilinogen <2.0 (<2.0) mg/dL Ur Leukocyte Esterase Negative (Negative) Urine Opiates Screen Not Detected (NotDetected) Ur Oxycodone Screen Not Detected (NotDetected) Urine Methadone Screen Not Detected (NotDetected) Ur Barbiturates Screen Not Detected (NotDetected) U Tricyclic Antidepress Not Detected (NotDetected) Ur Phencyclidine Scrn Not Detected (NotDetected) Ur Amphetamines Screen Not Detected (NotDetected) U Methamphetamines Scrn Not Detected (NotDetected) U Benzodiazepines Scrn Not Detected (NotDetected) Urine Cocaine Screen Not Detected (NotDetected) U Marijuana (THC) Screen Not Detected (NotDetected) Disposition Clinical Impression: Acute psychosis, Suicidal ideation Disposition: TRANSFER TO PSYCH HOSP/UNIT Referrals: None,Stated [Primary Care Provider] - 1-2 days Time of Disposition: 20:42
[2023-05-13 19:45] LABS: Amphetamine Screen,Urine Not Detected (NotDetected); Barbiturate Screen,Urine Not Detected (NotDetected); Benzodiazepines Screen,Urine Not Detected (NotDetected); Cocaine Screen,Urine Not Detected (NotDetected); Methadone Screen, Urine Not Detected (NotDetected); Opiate Screen,Urine Not Detected (NotDetected); Oxycodone Screen, Urine Not Detected (NotDetected); Phencyclidine Screen,Urine Not Detected (NotDetected); Tricyclic Antidepressant,Urine Not Detected (NotDetected); Urn Cannabinoid Scrn Not Detected (NotDetected)
[2023-05-13 19:46] LABS: Appearance,Urine Clear (Clear); Bilirubin,Urine Negative (Negative); Blood,Urine Negative (Negative); Color,Urine Colorless; Glucose,Urine (UA) Negative (Negative); Ketones,Urine Negative (Negative); Leukocyte Esterase,Urine Negative (Negative); Nitrite,Urine Negative (Negative); PH, Urine 5.5 (5.0-8.0); Protein,Urine Negative (Negative); Urobilinogen,Urine <2.0 mg/dL (<2.0)
[2023-05-13 19:51] LABS: Basophils # (A) 0.1 k/uL (0-0.2); Basophils % (A) 1 %; Eosinophils # (A) 0.4 k/uL (0-0.7); Eosinophils % (A) 3 %; HCT 38.6 % (39.0-53.0); Lymphocytes # (A) 3.9 k/uL (1.0-4.8); Lymphocytes % (A) 31 %; MCH 31.7 pg (25.0-35.0); MCHC 33.8 g/dL (31.0-37.0); MCV 93.8 fL (80.0-100.0); Mean Platelet Volume 8.5; Monocytes # (A) 0.7 k/uL (0-1.0); Monocytes % (A) 5 %; Neutrophils # (A) 7.3 k/uL (1.3-7.7); Neutrophils % (A) 58 %; Platelet Count 213 k/uL (150-450); RBC 4.12 m/uL (4.30-5.90); RDW 13.2 % (11.5-15.5); WBC 12.7 k/uL (3.8-10.6)
[2023-05-13 20:53] LABS: ALT 26 U/L (4-49); AST 25 U/L (17-59); African American GFR (CKD) >90 (>60 ml/min/1.73 sqM); Albumin 3.7 g/dL (3.5-5.0); Alkaline Phosphatase 75 U/L (38-126); Anion Gap 10 mmol/L; Blood Urea Nitrogen 20 mg/dL (9-20); Calcium 9.2 mg/dL (8.4-10.2); Carbon Dioxide 23 mmol/L (22-30); Chloride 105 mmol/L (98-107); Glucose 130 mg/dL (74-99); Non-African American GFR(CKD) >90 (>60 ml/min/1.73 sqM); Sodium 138 mmol/L (137-145); Total Bilirubin 0.2 mg/dL (0.2-1.3); Total Protein 6.3 g/dL (6.3-8.2)
[2023-05-14 07:01] VITALS: RESP 18
[2023-05-14 11:09] VITALS: BP 142/82; PULSE 67; TEMP 98.2
== END 2023-05-14 10:45 ==
LOC: EC 17:26
DX: F23 Brief psychotic disorder (principal); R45.851 Suicidal ideations; F31.9 Bipolar disorder, unspecified; F17.200 Nicotine dependence, unspecified, uncomplicated; Z79.899 Other long term (current) drug therapy
CPT/HCPCS: 36415; 80053; 80306; 81003; 82075; 85025; 87635; 99285

== ENCOUNTER → 2023-07-09 | Outpatient (CLI) | payer BC, OTHER ==
--- NOTE | 2023-07-09 08:51 | US ---
EXAMINATION TYPE: US duplex aorta DATE OF EXAM: 07/09/2023 COMPARISON: NONE CLINICAL INDICATION: Male, 57 years old with history of Z12.2 LUNG CA SCR F17.210 CURRENT SMOKER; smo ker, no symptoms, no family history TECHNIQUE: Multiple sonographic images of the abdominal aorta are obtained. FINDINGS: EXAM MEASUREMENTS: Abdominal Aorta: Proximal: 2.4 x 2.3cm Mid: 1.7 x 1.9cm Distal: 1.9 x 1.9cm Bifurcation: Right Iliac: 1.1 x 1.1cm Left Iliac: 0.8 x 1.1cm SUPPLY REQUIREMENTS OFFICER NOTES: mild plaque noted with no obvious AAA seen No abdominal aortic aneurysm identified. Mild atherosclerotic plaque noted of the aorta. IMPRESSION: No ultrasound evidence for abdominal aortic aneurysm.
--- NOTE | 2023-07-09 11:48 | CTL ---
EXAMINATION TYPE: CT Low Dose Lung DATE OF EXAM ORDERED: 07/09/2023 HISTORY: History of nicotine dependence, 1 pack per day for 30 years. Lung cancer screening CT DLP: 146.[address] CTDI: 3.8 mGy Automated exposure control for dose reduction was used. SCREENING VISIT: First screening visit COMPARISON: Chest radiograph 01/15/2023 TECHNIQUE: Low dose computed tomography scan was performed through the chest at 1 mm thick sections a nd reconstructed images in multiple planes at 1 mm and [address] DIAGNOSTIC QUALITY: Satisfactory FINDINGS: Nodules: No clinically significant pulmonary is identified. LUNGS: COPD: Severity: Minimal Fibrosis: Severity: None Lymph nodes: No pathologically enlarged lymph nodes identified. Other findings: Couple of small intrafissural lymph nodes along the right minor fissure. RIGHT PLEURAL SPACE: Effusion: None Calcification: None Thickening: None Pneumothorax: None LEFT PLEURAL SPACE: Effusion: None Calcification: None Thickening: None Pneumothorax: None HEART: Heart Size: Normal Coronary Calcification: None Pericardial Effusion: None OTHER FINDINGS: Upper abdomen: None Bony thorax: None Supraclavicular region: None Other: Mild atherosclerotic calcification of the aorta and its branches. No thoracic aortic aneurysm. The ascending thoracic aorta measures 3.7 cm. The descending thoracic aorta measures up to 2.3 cm. IMPRESSION: No clinically significant pulmonary nodules. No thoracic aortic aneurysm. CT LUNG RAD AND CT CHEST RECOMMENDATION: Lung-Rad 1 Negative: Continue annual screening with LDCT in 12 months. S Modifier (other clinically significant findings): None
== END | disposition home or self-care (01) ==
LOC: RADUSWWP 08:18
PROVIDERS: ATTEND Family Medicine
DX: Z12.2 Encounter for screening for malignant neoplasm of respiratory organs (principal); Z13.6 Encounter for screening for cardiovascular disorders; F17.210 Nicotine dependence, cigarettes, uncomplicated
CPT/HCPCS: 71271; 76706

== ENCOUNTER 2023-08-06 08:56 | Observation (INO) | payer BC, OTHER ==
--- NOTE | 2023-08-06 09:32 | ED ---
General Adult HPI - General Chief complaint: Weakness Stated complaint: Lethargy Time Seen by Provider: 08/06/23 08:57 Source: patient, EMS Mode of arrival: EMS - History of Present Illness Initial comments: Dictation was produced using [employer] dictation software. please excuse any g rammatical, word or spelling errors. Chief Complaint: 57-year-old male from [facility] presents to the ER for lethargy History of Present Illness: Patient 57-year-old male he is a poor historian due to mental debility. Patient takes psychiatric medications. Patient has no complaints except for feeling slightly tired. According to EMS who received report from [facility] staff patient seemed to be a little more lethargic for the last couple days. Patient [place] any pain complaints. No shortness of breath. No fever. Patient otherwise has no other complaints. The ROS documented in this emergency department record has been reviewed and confirmed by me. Those systems with pertinent positive or negative responses have been documented in the HPI. All other systems are other negative and/or noncontributory. - Related Data Home Medications Medication Instructions Recorded Confirmed risperiDONE ER inj [Perseris] 120 mg SQ Q30D 12/26/22 05/14/23 Sertraline [Zoloft] 100 mg PO DAILY 04/30/23 05/14/23 Allergies Allergy/AdvReac Type Severity Reaction Status Date / Time No Known Allergies Allergy Verified 08/06/23 09:06 Review of Systems ROS Statement: Those systems with pertinent positive or pertinent negative responses have been documented in the HPI. ROS Other: All systems not noted in ROS Statement are negative. Past Medical History Past Medical History: No Reported History Additional Past Medical History / Comment(s): UTI, Urinary retention History of Any Multi-Drug Resistant Organisms: None Reported Past Surgical History: No Surgical Hx Reported Past Anesthesia/Blood Transfusion Reactions: No Reported Reaction Past Psychological History: Bipolar, Depression Smoking Status: Current every day smoker Past Alcohol Use History: None Reported Past Drug Use History: None Reported - Past Family History Mother History Unknown: Yes General Exam - General Exam Comments Initial Comments: PHYSICAL EXAM: General Impression: Alert and oriented x3, not in acute distress HEENT: Normocephalic atraumatic, extra-ocular movements intact, pupils equal and reactive to light bilaterally, mucous membranes moist. Cardiovascular: Heart regular rate and rhythm Chest: Able to complete full sentences, no retractions, no tachypnea Abdomen: abdomen soft, non-tender, non-distended, no organomegaly Musculoskeletal: Pulses present and equal in all extremities, no peripheral edema Motor: no focal deficits noted Neurological: CN II-XII grossly intact, no focal motor or sensory deficits noted Skin: Intact with no visualized rashes Psych: Normal affect and mood Course Vital Signs 08/06/23 08/06/23 08:59 10:42 Temperature 98.6 F Pulse Rate 57 L 52 L Respiratory 20 18 Rate Blood Pressure 102/67 122/76 O2 Sat by Pulse 96 99 Oximetry EKG Findings - EKG Comments: EKG Findings:: My EKG interpretation: Ventricular rate 50, sinus bradycardia,. 149, cures 81, QTc 455. No NC prolongation, no QTC prolongation, no ST or T-wave changes noted. Overall, this EKG is unremarkable Medical Decision Making - Medical Decision Making Was pt. sent in by a medical professional or institution (, PA, ACCESS SPEC, urgent care, hospital, or correction...) When possible be specific @ -No Did you speak to anyone other than the patient for history (EMS, parent, family, police, friend...)? What history was obtained from this source @ -No Did you review nursing and triage notes (agree or disagree)? Why? @ -I reviewed and agree with nursing and triage notes Were old charts reviewed (outside hosp., previous admission, EMS record, old EKG, old radiological studies, urgent care reports/EKG's, correction records)? Report findings @ -No old charts were reviewed Differential Diagnosis (chest pain, altered mental status, abdominal pain women, abdominal pain men, vaginal bleeding, musculoskeletal, weakness, fever, dyspnea, syncope, headache, dizziness, GI bleed, back pain, seizure, CVA, palpatations, mental health)? @ -Differential Weakness: Hypoglycemia, shock, sepsis, hyponatremia, anemia, infection, [place], ETOH, adverse medicine reaction, overdose, stroke, this is not meant to be an all-inclusive list. EKG interpreted by me (3pts min.). @ -See above X-rays interpreted by me (1pt min.). @ -None done CT interpreted by me (1pt min.). @ -None done U/S interpreted by me (1pt. min.). @ -None done What testing was considered but not performed or refused? (CT, X-rays, U/S, labs)? Why? @ -None What meds were considered but not given or refused? Why? @ -None Did you discuss the management of the patient with other professionals (professionals i.e. , PA, ACCESS SPEC, lab, RT, psych nurse, social media campaign manager, parts finisher, teacher, biosecurity officer, counter caser)? Give summary @ -Case discussed with hospitalist for admission Was smoking cessation discussed for >3mins.? @ -No Was critical care preformed (if so, how long)? @ -No Were there social determinants of health that impacted care today? How? (Homelessness, low income, unemployed, alcoholism, drug addiction, transportation, low edu. Level, literacy, decrease access to med. care, [facility], rehab)? @ -No Was there de-escalation of care discussed even if they declined (Discuss DNR or withdrawal of care, Hospice)? DNR status @ -No What co-morbidities impacted this encounter? (DM, HTN, Smoking, COPD, CAD, Cancer, CVA, ARF, Chemo, Hep., AIDS, mental health diagnosis, sleep apnea, morbid obesity)? @ -None Was patient admitted / discharged? Hospital course, mention meds given and route, prescriptions, significant lab abnormalities, going to OR and other pertinent info. @ -57-year-old male presents to the emergency department for weakness. Patient reports snoring. Vital signs shows bradycardia. Blood pressure however within acceptable limits. Laboratory evaluation is unremarkable. Electrolytes normal. Troponin is negative. property assessment monitor reviewed showing that patient became significantly bradycardic to the 40s and 50s with no apparent cause. Patient will be admitted with consultation cardiology. Undiagnosed new problem with uncertain prognosis? @ -No Drug Therapy requiring intensive monitoring for toxicity (Heparin, Nitro, Insulin, Cardizem)? @ -No Were any procedures done? @ -No Diagnosis/symptom? Acute, or Chronic, or Acute on Chronic? Uncomplicated (without systemic symptoms) or Complicated (systemic symptoms)? @ -Bradycardia Side effects of treatment? @ -No Exacerbation, Progression, or Severe Exacerbation? @ -No Poses a threat to life or bodily function? How? (Chest pain, USA, [place], pneumonia, PE, COPD, DKA, ARF, appy, cholecystitis, CVA, Diverticulitis, Homicidal, Suicidal, threat to staff... and all critical care pts) @ -yres - Lab Data Result diagrams: 08/06/23 09:28 08/06/23 09:28 Lab Results 08/06/23 08/06/23 08/06/23 Range/Units 09:28 09:28 09:28 WBC 9.8 (3.8-10.6) k/uL RBC 4.52 (4.30-5.90) m/uL Hgb 14.5 (13.0-17.5) gm/dL Hct 42.0 (39.0-53.0) % MCV 92.9 (80.0-100.0) fL MCH 32.1 (25.0-35.0) pg MCHC 34.6 (31.0-37.0) g/dL RDW 12.6 (11.5-15.5) % Plt Count 227 (150-450) k/uL MPV 9.1 Neutrophils % 48 % Lymphocytes % 37 % Monocytes % 7 % Eosinophils % 4 % Basophils % 1 % Neutrophils # 4.7 (1.3-7.7) k/uL Lymphocytes # 3.6 (1.0-4.8) k/uL Monocytes # 0.7 (0-1.0) k/uL Eosinophils # 0.4 (0-0.7) k/uL Basophils # 0.1 (0-0.2) k/uL Sodium 140 (137-145) mmol/L Potassium 4.3 (3.5-5.1) mmol/L Chloride 108 H (98-107) mmol/L Carbon Dioxide 26 (22-30) mmol/L Anion Gap 6 mmol/L BUN 14 (9-20) mg/dL Creatinine 0.61 L (0.66-1.25) mg/dL Est GFR (CKD-EPI)AfAm >90 (>60 ml/min/1.73 sqM) Est GFR (CKD-EPI)NonAf >90 (>60 ml/min/1.73 sqM) Glucose 93 (74-99) mg/dL Calcium 9.6 (8.4-10.2) mg/dL Magnesium 2.0 (1.6-2.3) mg/dL Total Bilirubin 0.9 (0.2-1.3) mg/dL AST 16 L (17-59) U/L ALT 9 (4-49) U/L Alkaline Phosphatase 55 (38-126) U/L Troponin I <0.012 (0.000-0.034) ng/mL Total Protein 6.7 (6.3-8.2) g/dL Albumin 4.2 (3.5-5.0) g/dL Influenza Type A (PCR) (Not Detectd) Influenza Type B (PCR) (Not Detectd) RSV (PCR) (Not Detectd) SARS-CoV-2 (PCR) (Not Detectd) 08/06/23 Range/Units 09:28 WBC (3.8-10.6) k/uL RBC (4.30-5.90) m/uL Hgb (13.0-17.5) gm/dL Hct (39.0-53.0) % MCV (80.0-100.0) fL MCH (25.0-35.0) pg MCHC (31.0-37.0) g/dL RDW (11.5-15.5) % Plt Count (150-450) k/uL MPV Neutrophils % % Lymphocytes % % Monocytes % % Eosinophils % % Basophils % % Neutrophils # (1.3-7.7) k/uL Lymphocytes # (1.0-4.8) k/uL Monocytes # (0-1.0) k/uL Eosinophils # (0-0.7) k/uL Basophils # (0-0.2) k/uL Sodium (137-145) mmol/L Potassium (3.5-5.1) mmol/L Chloride (98-107) mmol/L Carbon Dioxide (22-30) mmol/L Anion Gap mmol/L BUN (9-20) mg/dL Creatinine (0.66-1.25) mg/dL Est GFR (CKD-EPI)AfAm (>60 ml/min/1.73 sqM) Est GFR (CKD-EPI)NonAf (>60 ml/min/1.73 sqM) Glucose (74-99) mg/dL Calcium (8.4-10.2) mg/dL Magnesium (1.6-2.3) mg/dL Total Bilirubin (0.2-1.3) mg/dL AST (17-59) U/L ALT (4-49) U/L Alkaline Phosphatase (38-126) U/L Troponin I (0.000-0.034) ng/mL Total Protein (6.3-8.2) g/dL Albumin (3.5-5.0) g/dL Influenza Type A (PCR) Not Detected (Not Detectd) Influenza Type B (PCR) Not Detected (Not Detectd) RSV (PCR) Not Detected (Not Detectd) SARS-CoV-2 (PCR) Not Detected (Not Detectd) Disposition Clinical Impression: Bradycardia Disposition: ADMITTED IP TO THIS HOSP Condition: Fair Referrals: Rosy Yousif MD [Primary Care Provider] - 1-2 days Decision Time: 11:02
[2023-08-06 09:47] LABS: Basophils # (A) 0.1 k/uL (0-0.2); Basophils % (A) 1 %; Eosinophils # (A) 0.4 k/uL (0-0.7); Eosinophils % (A) 4 %; HGB 14.5 gm/dL (13.0-17.5); Lymphocytes # (A) 3.6 k/uL (1.0-4.8); Lymphocytes % (A) 37 %; MCH 32.1 pg (25.0-35.0); MCHC 34.6 g/dL (31.0-37.0); MCV 92.9 fL (80.0-100.0); Mean Platelet Volume 9.1; Monocytes # (A) 0.7 k/uL (0-1.0); Monocytes % (A) 7 %; Neutrophils # (A) 4.7 k/uL (1.3-7.7); Neutrophils % (A) 48 %; Platelet Count 227 k/uL (150-450); RBC 4.52 m/uL (4.30-5.90); RDW 12.6 % (11.5-15.5); WBC 9.8 k/uL (3.8-10.6)
[2023-08-06 09:48] LABS: ALT 9 U/L (4-49); AST 16 U/L (17-59); African American GFR (CKD) >90 (>60 ml/min/1.73 sqM); Albumin 4.2 g/dL (3.5-5.0); Alkaline Phosphatase 55 U/L (38-126); Anion Gap 6 mmol/L; Blood Urea Nitrogen 14 mg/dL (9-20); Calcium 9.6 mg/dL (8.4-10.2); Carbon Dioxide 26 mmol/L (22-30); Chloride 108 mmol/L (98-107); Glucose 93 mg/dL (74-99); Non-African American GFR(CKD) >90 (>60 ml/min/1.73 sqM); Potassium 4.3 mmol/L (3.5-5.1); Sodium 140 mmol/L (137-145); Total Bilirubin 0.9 mg/dL (0.2-1.3); Total Protein 6.7 g/dL (6.3-8.2)
[2023-08-06] MEDS ORDERED: NALOXONE 0.4 MG/ML 1 ML VIAL IV PRN (11:03)
[2023-08-06] MEDS: SODIUM CHLORIDE 0.9% 1,000 ML IV SCH (11:16)
--- NOTE | 2023-08-06 11:58 | P.HPIM ---
History of Present Illness This is a pleasant 57 years old male with past medical history of bipolar disorder and depression, patient also known of nicotine dependence He was sent from his care home because of feeling dizzy. In the emergency room he was noted to be bradycardic with heart rate 50-55. Patient was admitted with telemetry and cardiology consultation Patient is fully awake and oriented, denies chest pain or dyspnea. He was complaining from nonspecific dizziness, he denies vertigo to me. He denies weakness numbness blurred vision or slurred speech. No headache. No trauma or fall. No change in urinary or bowel habits. Patient denies alcohol or illicit drugs but he states he smokes 1 pack/day and he was counseled to quit and he agrees to the nicotine patch Other than that is hemodynamically stable. Except for the bradycardia Labs reviewed and he has unremarkable CBC, BMP, liver enzymes. Troponin is negative less than 0.012. Influenza A and type B, RSV, SARS (coronavirus) are undetected Review of Systems Review of systems CONSTITUTIONAL: No fever, no malaise, no fatigue. HEENT: No recent visual problems or hearing problems. Denied any sore throat. CARDIOVASCULAR: No orthopnea, PND, no palpitations, no syncope. PULMONARY: No shortness of breath, no cough, no hemoptysis. GASTROINTESTINAL: No diarrhea, no nausea, no vomiting, no abdominal pain. Normoactive bowel sounds. NEUROLOGICAL: No headaches, no weakness, no numbness. HEMATOLOGICAL: Denies any bleeding or petechiae. GENITOURINARY: Denies any burning micturition, frequency, or urgency. MUSCULOSKELETAL/RHEUMATOLOGICAL: Denies any joint pain, swelling, or any muscle pain. ENDOCRINE: Denies any polyuria or polydipsia. Past Medical History Past Medical History: No Reported History Additional Past Medical History / Comment(s): UTI, Urinary retention History of Any Multi-Drug Resistant Organisms: None Reported Past Surgical History: No Surgical Hx Reported Past Anesthesia/Blood Transfusion Reactions: No Reported Reaction Past Psychological History: Bipolar, Depression Smoking Status: Current every day smoker Past Alcohol Use History: None Reported Past Drug Use History: None Reported - Past Family History Mother History Unknown: Yes Medications and Allergies Home Medications Medication Instructions Recorded Confirmed Type Paliperidone IM [Invega Sustenna] 156 mg IM QMONTHLY 08/06/23 08/06/23 History risperiDONE [RisperDAL] 2 mg PO BID@0800,199908/06/23 08/06/23 History traZODone HCL [Desyrel] 50 mg PO HS@199908/06/23 08/06/23 History Allergies Allergy/AdvReac Type Severity Reaction Status Date / Time No Known Allergies Allergy Verified 08/06/23 11:30 Physical Exam Vitals: Vital Signs Temp Pulse Resp BP Pulse Ox 08/06/23 10:42 52 L 18 122/76 99 08/06/23 08:59 98.6 F 57 L 20 102/67 96 Intake and Output 08/05/23 08/06/23 08/06/23 22:59 06:59 14:59 Other: Weight 90.265 kg GENERAL: The patient is alert and oriented x3, not in any acute distress. Well developed, well nourished. HEENT: Pupils are round and equally reacting to light. EOMI. No scleral icterus. No conjunctival pallor. Normocephalic, atraumatic. No pharyngeal erythema. No thyromegaly. CARDIOVASCULAR: S1 and S2 present. No murmurs, rubs, or gallops. PULMONARY: Chest is clear to auscultation, no wheezing , no crackles. ABDOMEN: Soft, nontender, nondistended, normoactive bowel sounds. No palpable organomegaly. MUSCULOSKELETAL: No joint swelling or deformity. EXTREMITIES: No cyanosis, clubbing, or pedal edema. NEUROLOGICAL: Gross neurological examination did not reveal any focal deficits. SKIN: No rashes. no petechiae. Results CBC & Chem 7: 08/06/23 09:28 08/06/23 09:28 Labs: Abnormal Lab Results - Last 24 Hours (Table) 08/06/23 Range/Units 09:28 Chloride 108 H (98-107) mmol/L Creatinine 0.61 L (0.66-1.25) mg/dL AST 16 L (17-59) U/L Assessment and Plan Assessment: Sinus bradycardia associated with dizziness Nicotine dependence Bipolar disorder Plan: Continuous telemetry monitoring Home medication reviewed patient is not on beta-john Check TSH and cortisol level as blood pressure was on the low side on admission Cardiology consult GI and DVT prophylaxis Prognosis guarded
[2023-08-06] MEDS: NICOTINE 21MG/24HR PATCH TRANSDERM SCH (13:14)
--- NOTE | 2023-08-07 08:58 | P.CRDCN ---
History of Present Illness History of present illness: HISTORY OF PRESENT ILLNESS: This is a 57-year-old male with a past medical history significant for bipolar disorder, depression, and nicotine dependence. Patient does not follow with a ca rdiologist. We have been asked to see the patient in consultation for bradycardia. Patient examined at the bedside. Patient apparently presented to the hospital with a chief complaint of generalized weakness. Patient currently denies any chest pain or pressure. He denies any shortness of breath. He denies any dizziness or lightheadedness. EKG revealed sinus bradycardia with no signs of acute ischemia. The patient has been up ambulating to the bathroom without difficulty. No significant bradycardia or high-grade AV block has been noted. REVIEW OF SYSTEMS: At the time of my exam: CONSTITUTIONAL: Denies fever or chills. HEENT: Denies blurred vision, vision changes, or eye pain. Denies hemoptysis CARDIOVASCULAR: Denies chest pain. Denies orthopnea. Denies PND. Denies palpitations RESPIRATORY: Denies shortness of breath. GASTROINTESTINAL: Denies abdominal pain. Denies nausea or vomiting. HEMATOLOGIC: Denies bleeding disorders. GENITOURINARY: Denies any blood in urine. SKIN: Denies pruitis. Denies rash. PHYSICAL EXAM: VITAL SIGNS: Reviewed. GENERAL: Well-developed in no acute distress. HEENT: Head is normocephalic. Pupils are equal, round. Sclerae anicteric. Mucous membranes of the mouth are moist. Neck supple. No JVD or thyromegaly LUNGS: Respirations even and unlabored. Lungs essentially clear to auscultation bilaterally. HEART: Regular rate and rhythm. S1 and S2 heard. ABDOMEN: Soft. Nondistended. Nontender. EXTREMITIES: Normal range of motion. No clubbing or cyanosis. Peripheral pulses intact. No lower extremity edema NEUROLOGIC: Awake and alert. Oriented x 3. ASSESSMENT: Generalized weakness Asymptomatic bradycardia History of bipolar disorder History of depression Nicotine dependence PLAN: Check TSH Obtain 2D echo to assess cardiac structure and function Patient may be discharged home this afternoon from a cardiac standpoint No further cardiac workup is warranted at this time. Nurse practitioner note has been reviewed by physician. Signing provider agrees with the documented findings, assessment, and plan of care documented by GREEN [employer]EE BLENDER as a scribe. Past Medical History Past Medical History: No Reported History Additional Past Medical History / Comment(s): UTI, Urinary retention History of Any Multi-Drug Resistant Organisms: None Reported Past Surgical History: No Surgical Hx Reported Past Anesthesia/Blood Transfusion Reactions: No Reported Reaction Past Psychological History: Bipolar, Depression Smoking Status: Current every day smoker Past Alcohol Use History: None Reported Past Drug Use History: None Reported - Past Family History Mother History Unknown: Yes Medications and Allergies Home Medications Medication Instructions Recorded Confirmed Type Paliperidone IM [Invega Sustenna] 156 mg IM QMONTHLY 08/06/23 08/06/23 History risperiDONE [RisperDAL] 2 mg PO BID@799,199908/06/23 08/06/23 History traZODone HCL [Desyrel] 50 mg PO HS@199908/06/23 08/06/23 History Allergies Allergy/AdvReac Type Severity Reaction Status Date / Time No Known Allergies Allergy Verified 08/06/23 11:30 Physical Exam Vitals: Vital Signs Temp Pulse Pulse Resp BP BP Pulse Ox 08/07/23 02:00 97.9 F 62 17 104/62 99 08/06/23 19:25 98.2 F 59 L 16 102/73 99 08/06/23 15:00 98.2 F 60 18 121/64 100 08/06/23 13:14 52 L 18 129/62 96 08/06/23 10:42 52 L 18 122/76 99 08/06/23 08:59 98.6 F 57 L 20 102/67 96 Intake and Output 08/06/23 08/07/23 08/07/23 22:59 06:59 14:59 Intake Total 118 Balance 118 Intake: Oral 118 Other: Voiding Method Urinal Urinal # Voids 5 5 Weight 90.265 kg Results 08/06/23 09:28 08/06/23 09:28 Cardiac Enzymes 08/06/23 08/06/23 Range/Units 09:28 09:28 AST 16 L (17-59) U/L Troponin I <0.012 (0.000-0.034) ng/mL CBC 08/06/23 Range/Units 09:28 WBC 9.8 (3.8-10.6) k/uL RBC 4.52 (4.30-5.90) m/uL Hgb 14.5 (13.0-17.5) gm/dL Hct 42.0 (39.0-53.0) % Plt Count 227 (150-450) k/uL Comprehensive Metabolic Panel 08/06/23 Range/Units 09:28 Sodium 140 (137-145) mmol/L Potassium 4.3 (3.5-5.1) mmol/L Chloride 108 H (98-107) mmol/L Carbon Dioxide 26 (22-30) mmol/L BUN 14 (9-20) mg/dL Creatinine 0.61 L (0.66-1.25) mg/dL Glucose 93 (74-99) mg/dL Calcium 9.6 (8.4-10.2) mg/dL AST 16 L (17-59) U/L ALT 9 (4-49) U/L Alkaline Phosphatase 55 (38-126) U/L Total Protein 6.7 (6.3-8.2) g/dL Albumin 4.2 (3.5-5.0) g/dL Current Medications Generic Name Dose Route Start Last Admin Trade Name Freq PRN Reason Stop Dose Admin Sodium Chloride 1,000 mls @ 20 mls/hr 08/06/23 11:15 08/06/23 11:16 Saline 0.9% IV 20 mls/hr .Q24H DOUGIE Administration Naloxone HCl 0.2 mg 08/06/23 11:03 Naloxone 0.4 Mg/Ml 1 Ml Vial IV Q2M PRN Opioid Reversal Nicotine 1 patch 08/06/23 12:00 08/06/23 13:14 Nicotine 21mg/24hr Patch TRANSDERM 1 patch DAILY DOUGIE Administration Intake and Output 08/06/23 08/07/23 08/07/23 22:59 06:59 14:59 Intake Total 118 Balance 118 Intake: Oral 118 Other: Voiding Method Urinal Urinal # Voids 5 5 Weight 90.265 kg 08/06/23 09:28 08/06/23 09:28
[2023-08-07 09:28] VITALS: BP 99/67; PULSE 58; RESP 20; TEMP 98
--- NOTE | 2023-08-07 12:19 | CA ---
Transthoracic Echo Report Name: Gualberto Musa Age: 57 Gender: M : 1965 Exam Date: 08/07/2023 09:25 Exam Location: [facility] Ht (in): 67 Wt (lb): 200 Ordering Physician: Heidy Hurtado Attending/Referring Phys: [id number], Bryant Educational Programming Director Jenna Avilez RDCS Procedure CPT: Indications: LV function, bradycardia Cardiac Hx: Technical Quality: Fair Contrast 1: Total Dose (mL): Contrast 2: Total Dose (mL): MEASUREMENTS (Male / Female) Normal Values 2D ECHO LV Diastolic Diameter PLAX 4.9 cm 4.2 - 5.9 / 3.9 - 5.3 cm LV Systolic Diameter PLAX 3.2 cm IVS Diastolic Thickness 1.0 cm 0.6 - 1.0 / 0.6 - 0.9 cm LVPW Diastolic Thickness 1.0 cm 0.6 - 1.0 / 0.6 - 0.9 cm LV Relative Wall Thickness 0.4 RV Internal Dim ED PLAX 3.4 cm LVOT Diameter 2.4 cm LV Diastolic Volume MOD BP 133.7 cm??? 67 - 155 / 56 - 104 cm??? LV Systolic Volume MOD BP 49.1 cm??? 22 - 58 / 19 - 49 cm??? LV Ejection Fraction MOD BP 63.3 % >= 55 % LV Cardiac Index MOD BP 2218.0 cm???/min???m??? LV Diastolic Volume MOD 4C 127.1 cm??? LV Systolic Volume MOD 4C 52.5 cm??? LV Ejection Fraction MOD 4C 58.7 % LV Cardiac Index MOD 4C 1953.8 cm???/min???m??? LV Diastolic Length 4C 8.8 cm LV Systolic Length 4C 7.4 cm LV Diastolic Volume MOD 2C 133.6 cm??? LV Systolic Volume MOD 2C 43.9 cm??? LV Ejection Fraction MOD 2C 67.2 % LV Cardiac Index MOD 2C 2349.9 cm???/min???m??? LV Diastolic Length 2C 9.3 cm LV Systolic Length 2C 7.8 cm LA Volume 69.6 cm??? 18 - 58 / 22 - 52 cm??? LA Volume Index 33.1 cm???/m??? 16 - 28 cm???/m??? Ascending Aorta Diameter 3.7 cm DOPPLER AV Peak Velocity 170.4 cm/s AV Peak Gradient 11.6 mmHg AV Mean Velocity 102.7 cm/s AV Mean Gradient 5.1 mmHg AV Velocity Time Integral 33.6 cm LVOT Peak Velocity 108.6 cm/s LVOT Peak Gradient 4.7 mmHg LVOT Velocity Time Integral 21.3 cm LVOT Stroke Volume 94.6 cm??? LVOT Stroke Volume Index 46.8 ml/m??? LVOT Cardiac Index 2477.3 cm???/min???m??? AV Area Cont Eq vti 2.8 cm??? AV Area Cont Eq pk 2.8 cm??? MV Area PHT 3.9 cm??? Mitral E Point Velocity 92.7 cm/s Mitral A Point Velocity 72.3 cm/s Mitral E to A Ratio 1.3 MV Deceleration Time 195.8 ms TR Peak Velocity 235.2 cm/s TR Peak Gradient 22.1 mmHg PV Peak Velocity 103.3 cm/s PV Peak Gradient 4.3 mmHg FINDINGS Left Ventricle Left ventricular ejection fraction is estimated at 55-60 %. Left ventricular cavity size normal. Left ventricular wall thickness normal. No obvious regional wall motion abnormalities. Right Ventricle Normal right ventricular size and function. Right Atrium Normal right atrial size. Left Atrium Mildly increased left atrial volume. Mildly increased left atrial area. Mitral Valve Structurally normal mitral valve. No mitral stenosis, regurgitation or prolapse. Aortic Valve Trileaflet aortic valve. Aortic valve sclerosis. No aortic valve stenosis or regurgitation. Tricuspid Valve Structurally normal tricuspid valve. No tricuspid stenosis. Trace tricuspid regurgitation. Pulmonic Valve Structurally normal pulmonic valve. No pulmonic stenosis. Trace pulmonic regurgitation. Pericardium No pericardial effusion. Aorta Normal size aortic root and proximal ascending aorta. CONCLUSIONS Normal LV function Previewed by: Dr. Doug Ramos MD (Electronically Signed) Final Date: 07 August 2023 12:18
== END 2023-08-07 13:00 | disposition other institution (70) ==
LOC: EC 08:56 → 6NMEDSUR 11:03
PROVIDERS: ADMIT Hospitalist; ATTEND Hospitalist
DX: R53.1 Weakness (principal); R00.1 Bradycardia, unspecified; R42 Dizziness and giddiness; F31.9 Bipolar disorder, unspecified; F17.200 Nicotine dependence, unspecified, uncomplicated; Z11.52 Encounter for screening for COVID-19; Z79.899 Other long term (current) drug therapy
CPT/HCPCS: 96361 ×3; 96360; 99285; 36415; 93005; 93306; 80053; 84443; 82533; 83735; 84484; 85025; 87636; G0378 ×2; S4990 ×2

== ENCOUNTER 2023-08-25 08:35 | Emergency (ER) | payer BC, OTHER ==
[2023-08-25 08:44] VITALS: RESP 18; TEMP 98.5
--- NOTE | 2023-08-25 08:57 | ED ---
General Adult HPI - General Chief complaint: Syncope Stated complaint: Sycope Time Seen by Provider: 08/25/23 08:37 Source: patient, EMS, RN notes reviewed, old records reviewed Mode of arrival: EMS Limitations: no limitations - History of Present Illness Initial comments: 57-year-old male presenting from a alf for evaluation of near syncope. Patient has had similar episodes and is awaiting evaluation by neurology. He had been seen at this hospital where he received echocardiogram and cardiology consultation for similar symptoms. Paramedics did report a blood pressure in the 80s which responded to IV fluid. Patient himself has no complaints, no headache, no chest pain, no abdominal pain. No nausea vomiting. - Related Data Home Medications Medication Instructions Recorded Confirmed Paliperidone IM [Invega Sustenna] 156 mg IM QMONTHLY 08/06/23 08/06/23 risperiDONE [RisperDAL] 2 mg PO BID@08,199908/06/23 08/06/23 traZODone HCL [Desyrel] 50 mg PO HS@199908/06/23 08/06/23 Allergies Allergy/AdvReac Type Severity Reaction Status Date / Time No Known Allergies Allergy Verified 08/25/23 08:44 Review of Systems ROS Statement: Those systems with pertinent positive or pertinent negative responses have been documented in the HPI. ROS Other: All systems not noted in ROS Statement are negative. Past Medical History Past Medical History: No Reported History Additional Past Medical History / Comment(s): UTI, Urinary retention History of Any Multi-Drug Resistant Organisms: None Reported Past Surgical History: No Surgical Hx Reported Past Anesthesia/Blood Transfusion Reactions: No Reported Reaction Past Psychological History: Bipolar, Depression Smoking Status: Current every day smoker Past Alcohol Use History: None Reported Past Drug Use History: None Reported - Past Family History Mother History Unknown: Yes General Exam General appearance: alert, in no apparent distress Head exam: Present: atraumatic, normocephalic Eye exam: Present: normal appearance, PERRL ENT exam: Present: normal exam Neck exam: Present: normal inspection. Absent: tenderness, meningismus Respiratory exam: Present: normal lung sounds bilaterally. Absent: respiratory distress, wheezes Cardiovascular Exam: Present: normal rhythm, bradycardia, systolic murmur GI/Abdominal exam: Present: soft. Absent: distended, tenderness, guarding Extremities exam: Present: normal inspection, normal capillary refill. Absent: pedal edema Neurological exam: Present: alert, CN II-XII intact. Absent: motor sensory deficit Psychiatric exam: Present: normal affect, normal mood Skin exam: Present: warm, dry, intact Course Vital Signs 08/25/23 08/25/23 08/25/23 08:41 09:00 09:30 Temperature 98.5 F Pulse Rate 68 53 L Respiratory 18 18 18 Rate Blood Pressure 115/71 115/71 93/45 O2 Sat by Pulse 99 97 100 Oximetry 08/25/23 10:00 Temperature Pulse Rate 52 L Respiratory 18 Rate Blood Pressure 103/58 O2 Sat by Pulse Oximetry Medical Decision Making - Medical Decision Making Was pt. sent in by a medical professional or institution (TE[facility] Mills, GARBAGE DEPOT WORKER, urgent care, hospital, or residential...) When possible be specific @ -No Did you speak to anyone other than the patient for history (EMS, parent, family, police, friend...)? What history was obtained from this source @ -No Did you review nursing and triage notes (agree or disagree)? Why? @ -I reviewed and agree with nursing and triage notes Were old charts reviewed (outside hosp., previous admission, EMS record, old EKG, old radiological studies, urgent care reports/EKG's, residential records)? Report findings @ -No old charts were reviewed Differential Syncope: Valvular disease, hypertrophic cardiomyopathy, pulmonary embolism, tamponade, tachycardia, bradycardia, PA, hypovolemia, hemorrhage, dissection, anemia, intracranial hemorrhage, seizure, hypoglycemia, carbon monoxide poisoning, this is not meant to be an all-inclusive list. EKG interpreted by me (3pts min.). @ -Sinus bradycardia rate of 53, MA interval 138, QRS duration 85, QTc [address] segment changes. X-rays interpreted by me (1pt min.). @ -None done CT interpreted by me (1pt min.). @ -None done U/S interpreted by me (1pt. min.). @ -None done What testing was considered but not performed or refused? (CT, X-rays, U/S, labs)? Why? @ -None What meds were considered but not given or refused? Why? @ -None Did you discuss the management of the patient with other professionals (professionals i.e. TEGAN Mills, GARBAGE DEPOT WORKER, lab, RT, psych nurse, social science teacher, concrete bucket unloader, teacher, targeting acquisition officer, family preservation caseworker)? Give summary @ -No Was smoking cessation discussed for >3mins.? @ -No Was critical care preformed (if so, how long)? @ -No Were there social determinants of health that impacted care today? How? (Homelessness, low income, unemployed, alcoholism, drug addiction, transportation, low edu. Level, literacy, decrease access to med. care, shelter, rehab)? @ -No Was there de-escalation of care discussed even if they declined (Discuss DNR or withdrawal of care, Hospice)? DNR status @ -No What co-morbidities impacted this encounter? (DM, HTN, Smoking, COPD, CAD, Cancer, CVA, ARF, Chemo, Hep., AIDS, mental health diagnosis, sleep apnea, morbid obesity)? @ -None Was patient admitted / discharged? Hospital course, mention meds given and route, prescriptions, significant lab abnormalities, going to OR and other perti nent info. @ -[57-year-old male presenting with lightheadedness, near syncope. Patient does respond well to IV fluids. Suspect component of dehydration. He is in sinus rhythm which is sinus bradycardia. Chest x-ray is clear. Laboratory testing reveals a mild leukocytosis without any other acute abnormality. Patient receives a total of 1 L of IV fluid. He continues to have no complaints. He is undergoing outpatient evaluation of this issue and I feel he is stable for continued outpatient management at this time. Undiagnosed new problem with uncertain prognosis? @ -No Drug Therapy requiring intensive monitoring for toxicity (Heparin, Nitro, Insulin, Cardizem)? @ -No Were any procedures done? @ -No Diagnosis/symptom? @Lightheadedness, near syncope Acute, or Chronic, or Acute on Chronic? @Chronic Uncomplicated (without systemic symptoms) or Complicated (systemic symptoms)? @ -Default Side effects of treatment? @ -No Exacerbation, Progression, or Severe Exacerbation? @ -No Poses a threat to life or bodily function? How? (Chest pain, USA, PA, pneumonia, PE, COPD, DKA, ARF, appy, cholecystitis, CVA, Diverticulitis, Homicidal, Suicidal, threat to staff... and all critical care pts) @ low Risk at this time - Lab Data Result diagrams: 08/25/23 08:52 08/25/23 08:52 Lab Results 08/25/23 08/25/23 08/25/23 Range/Units 08:52 08:52 08:52 WBC 13.3 H (3.8-10.6) k/uL RBC 4.25 L (4.30-5.90) m/uL Hgb 13.3 (13.0-17.5) gm/dL Hct 39.9 (39.0-53.0) % MCV 94.1 (80.0-100.0) fL MCH 31.3 (25.0-35.0) pg MCHC 33.2 (31.0-37.0) g/dL RDW 12.2 (11.5-15.5) % Plt Count 270 (150-450) k/uL MPV 8.4 Neutrophils % 57 % Lymphocytes % 29 % Monocytes % 8 % Eosinophils % 3 % Basophils % 1 % Neutrophils # 7.6 (1.3-7.7) k/uL Lymphocytes # 3.8 (1.0-4.8) k/uL Monocytes # 1.0 (0-1.0) k/uL Eosinophils # 0.4 (0-0.7) k/uL Basophils # 0.1 (0-0.2) k/uL PT 10.6 (10.0-12.5) sec INR 1.0 (<1.2) APTT 25.2 (22.0-30.0) sec Sodium (137-145) mmol/L Potassium (3.5-5.1) mmol/L Chloride (98-107) mmol/L Carbon Dioxide (22-30) mmol/L Anion Gap mmol/L BUN (9-20) mg/dL Creatinine (0.66-1.25) mg/dL Est GFR (CKD-EPI)AfAm (>60 ml/min/1.73 sqM) Est GFR (CKD-EPI)NonAf (>60 ml/min/1.73 sqM) Glucose (74-99) mg/dL Calcium (8.4-10.2) mg/dL Magnesium (1.6-2.3) mg/dL Total Bilirubin (0.2-1.3) mg/dL AST (17-59) U/L ALT (4-49) U/L Alkaline Phosphatase (38-126) U/L Troponin I (0.000-0.034) ng/mL Total Protein (6.3-8.2) g/dL Albumin (3.5-5.0) g/dL Urine Color Yellow Urine Appearance Clear (Clear) Urine pH 6.0 (5.0-8.0) Ur Specific [place] 1.019 (1.001-1.035) Urine Protein Trace H (Negative) Urine Glucose (UA) Negative (Negative) Urine Ketones Negative (Negative) Urine Blood Negative (Negative) Urine Nitrite Negative (Negative) Urine Bilirubin Negative (Negative) Urine Urobilinogen <2.0 (<2.0) mg/dL Ur Leukocyte Esterase Negative (Negative) 08/25/23 08/25/23 Range/Units 08:52 08:52 WBC (3.8-10.6) k/uL RBC (4.30-5.90) m/uL Hgb (13.0-17.5) gm/dL Hct (39.0-53.0) % MCV (80.0-100.0) fL MCH (25.0-35.0) pg MCHC (31.0-37.0) g/dL RDW (11.5-15.5) % Plt Count (150-450) k/uL MPV Neutrophils % % Lymphocytes % % Monocytes % % Eosinophils % % Basophils % % Neutrophils # (1.3-7.7) k/uL Lymphocytes # (1.0-4.8) k/uL Monocytes # (0-1.0) k/uL Eosinophils # (0-0.7) k/uL Basophils # (0-0.2) k/uL PT (10.0-12.5) sec INR (<1.2) APTT (22.0-30.0) sec Sodium 142 (137-145) mmol/L Potassium 4.2 (3.5-5.1) mmol/L Chloride 111 H (98-107) mmol/L Carbon Dioxide 24 (22-30) mmol/L Anion Gap 7 mmol/L BUN 7 L (9-20) mg/dL Creatinine 0.52 L (0.66-1.25) mg/dL Est GFR (CKD-EPI)AfAm >90 (>60 ml/min/1.73 sqM) Est GFR (CKD-EPI)NonAf >90 (>60 ml/min/1.73 sqM) Glucose 105 H (74-99) mg/dL Calcium 9.4 (8.4-10.2) mg/dL Magnesium 1.9 (1.6-2.3) mg/dL Total Bilirubin 0.6 (0.2-1.3) mg/dL AST 12 L (17-59) U/L ALT 9 (4-49) U/L Alkaline Phosphatase 57 (38-126) U/L Troponin I <0.012 (0.000-0.034) ng/mL Total Protein 6.3 (6.3-8.2) g/dL Albumin 3.8 (3.5-5.0) g/dL Urine Color Urine Appearance (Clear) Urine pH (5.0-8.0) Ur Specific [place] (1.001-1.035) Urine Protein (Negative) Urine Glucose (UA) (Negative) Urine Ketones (Negative) Urine Blood (Negative) Urine Nitrite (Negative) Urine Bilirubin (Negative) Urine Urobilinogen (<2.0) mg/dL Ur Leukocyte Esterase (Negative) Disposition Clinical Impression: Near syncope, Dehydration Disposition: HOME SELF-CARE Condition: Fair Instructions (If sedation given, give patient instructions): Near Syncope (ED), Dehydration (ED) Is patient prescribed a controlled substance at d/c from ED?: No Referrals: Rosy Yousif MD [Primary Care Provider] - 1-2 days Time of Disposition: 11:17
[2023-08-25 09:01] LABS: Basophils # (A) 0.1 k/uL (0-0.2); Basophils % (A) 1 %; Eosinophils # (A) 0.4 k/uL (0-0.7); Eosinophils % (A) 3 %; HCT 39.9 % (39.0-53.0); HGB 13.3 gm/dL (13.0-17.5); Lymphocytes # (A) 3.8 k/uL (1.0-4.8); Lymphocytes % (A) 29 %; MCH 31.3 pg (25.0-35.0); MCHC 33.2 g/dL (31.0-37.0); MCV 94.1 fL (80.0-100.0); Mean Platelet Volume 8.4; Monocytes % (A) 8 %; Neutrophils # (A) 7.6 k/uL (1.3-7.7); Neutrophils % (A) 57 %; Platelet Count 270 k/uL (150-450); RBC 4.25 m/uL (4.30-5.90); RDW 12.2 % (11.5-15.5); WBC 13.3 k/uL (3.8-10.6)
[2023-08-25] MEDS: SODIUM CHLORIDE 0.9% 500 ML 500 ML IV STA (09:06)
[2023-08-25 09:17] LABS: ALT 9 U/L (4-49); AST 12 U/L (17-59); African American GFR (CKD) >90 (>60 ml/min/1.73 sqM); Albumin 3.8 g/dL (3.5-5.0); Alkaline Phosphatase 57 U/L (38-126); Anion Gap 7 mmol/L; Blood Urea Nitrogen 7 mg/dL (9-20); Calcium 9.4 mg/dL (8.4-10.2); Carbon Dioxide 24 mmol/L (22-30); Chloride 111 mmol/L (98-107); Glucose 105 mg/dL (74-99); Magnesium 1.9 mg/dL (1.6-2.3); Non-African American GFR(CKD) >90 (>60 ml/min/1.73 sqM); Potassium 4.2 mmol/L (3.5-5.1); Sodium 142 mmol/L (137-145); Total Bilirubin 0.6 mg/dL (0.2-1.3); Total Protein 6.3 g/dL (6.3-8.2)
[2023-08-25 09:18] LABS: Partial Thromboplastin Time 25.2 sec (22.0-30.0); Prothrombin Time 10.6 sec (10.0-12.5)
--- NOTE | 2023-08-25 09:26 | XR ---
EXAMINATION TYPE: XR chest 2V DATE OF EXAM: 08/25/2023 9:20 AM CLINICAL INDICATION:Male, 57 years old with history of syncope; COMPARISON: Chest radiographs from 01/15/2023.. TECHNIQUE: XR chest 2V Frontal and lateral views of the chest. FINDINGS: Lungs/Pleura: There is no evidence of pleural effusion, focal consolidation, or pneumothorax. Pulmonary vascularity: Unremarkable. Heart/mediastinum: Cardiomediastinal silhouette is unremarkable. Musculoskeletal: No acute osseous pathology. IMPRESSION: No acute cardiopulmonary disease/process.
[2023-08-25 09:45] LABS: Appearance,Urine Clear (Clear); Bilirubin,Urine Negative (Negative); Blood,Urine Negative (Negative); Color,Urine Yellow; Glucose,Urine (UA) Negative (Negative); Ketones,Urine Negative (Negative); Leukocyte Esterase,Urine Negative (Negative); Nitrite,Urine Negative (Negative); Protein,Urine Trace (Negative); Specific Gravity,Urine 1.019 (1.001-1.035); Urobilinogen,Urine <2.0 mg/dL (<2.0)
[2023-08-25 10:58] VITALS: BP 103/58; PULSE 52
== END 2023-08-25 11:26 | disposition home or self-care (01) ==
LOC: EC 08:35
DX: E86.0 Dehydration (principal); R55 Syncope and collapse; F17.200 Nicotine dependence, unspecified, uncomplicated
CPT/HCPCS: 36415; 71046; 80053; 81003; 83735; 84484; 85025; 85610; 85730; 93005; 99284

== ENCOUNTER 2023-09-13 21:57 | Emergency (ER) | payer BC, OTHER ==
--- NOTE | 2023-09-13 23:10 | ED ---
General Adult HPI - General Chief complaint: Abdominal Pain Stated complaint: ABD Pain Time Seen by Provider: 09/13/23 21:59 Source: patient, EMS Mode of arrival: EMS - History of Present Illness Initial comments: Dictation was produced using [employer] dictation software. please excuse any grammatical, word or spelling errors. Chief Complaint: 57-year-old male brought in from [facility] by EMS for abdominal pain History of Present Illness: Patient is a 57-year-old male he has history of mental debility. Presents to the ER after having had abdominal pain. Apparently his pain began after he had spaghetti for dinner. Patient states the pain is in his epigastrium and periumbilical area. Denies any fever. No nausea vomiting. Patient is a poor historian. Patient denies any history of abdominal surgery. The ROS documented in this emergency department record has been reviewed and confirmed by me. Those systems with pertinent positive or negative responses have been documented in the HPI. All other systems are other negative and/or noncontributory. - Related Data Home Medications Medication Instructions Recorded Confirmed risperiDONE [RisperDAL] 2 mg PO BID@0800,199908/06/23 08/25/23 traZODone HCL [Desyrel] 50 mg PO HS PRN 08/06/23 08/25/23 Atorvastatin [Lipitor] 40 mg PO HS@199908/25/23 08/25/23 Benztropine Mesylate [Cogentin] 0.5 mg PO BID@0800,199908/25/23 08/25/23 Allergies Allergy/AdvReac Type Severity Reaction Status Date / Time No Known Allergies Allergy Verified 09/13/23 22:06 Review of Systems ROS Statement: Those systems with pertinent positive or pertinent negative responses have been documented in the HPI. ROS Other: All systems not noted in ROS Statement are negative. Past Medical History Past Medical History: No Reported History Additional Past Medical History / Comment(s): UTI, Urinary retention History of Any Multi-Drug Resistant Organisms: None Reported Past Surgical History: No Surgical Hx Reported Past Anesthesia/Blood Transfusion Reactions: No Reported Reaction Past Psychological History: Bipolar, Depression Smoking Status: Current every day smoker Past Alcohol Use History: None Reported Past Drug Use History: None Reported - Past Family History Mother History Unknown: Yes General Exam - General Exam Comments Initial Comments: PHYSICAL EXAM: General Impression: Alert and oriented x3, not in acute distress HEENT: Normocephalic atraumatic, extra-ocular movements intact, pupils equal and reactive to light bilaterally, mucous membranes moist. Cardiovascular: Heart regular rate and rhythm Chest: Able to complete full sentences, no retractions, no tachypnea Abdomen: abdomen soft, palpatory tenderness to the mid central abdomen, non- distended, no organomegaly Musculoskeletal: Pulses present and equal in all extremities, no peripheral edema Motor: no focal deficits noted Neurological: CN II-XII grossly intact, no focal motor or sensory deficits noted Skin: Intact with no visualized rashes Psych: Normal affect and mood Course Vital Signs 09/13/23 09/13/23 09/13/23 21:58 22:10 23:00 Temperature 99.9 F H Pulse Rate 70 78 64 Respiratory 18 18 Rate Blood Pressure 92/65 102/74 117/71 O2 Sat by Pulse 96 96 Oximetry 09/14/23 09/14/23 00:03 00:46 Temperature 98.1 F Pulse Rate 78 Respiratory 18 Rate Blood Pressure 119/77 O2 Sat by Pulse 95 Oximetry EKG Findings - EKG Comments: EKG Findings:: My EKG interpretation: Ventricular rate 64, sinus rhythm,. 142, cures 86, QTc 436. No OR prolongation, no QTC prolongation, no ST or T-wave changes noted. Overall, this EKG is unremarkable Medical Decision Making - Medical Decision Making Was pt. sent in by a medical professional or institution (, PA, HEEL CURVER, urgent care, hospital, or detention...) When possible be specific @ -No Did you speak to anyone other than the patient for history (EMS, parent, family, police, friend...)? What history was obtained from this source @ -No Did you review nursing and triage notes (agree or disagree)? Why? @ -I reviewed and agree with nursing and triage notes Were old charts reviewed (outside hosp., previous admission, EMS record, old EKG, old radiological studies, urgent care reports/EKG's, detention records)? Report findings @ -No old charts were reviewed Differential Diagnosis (chest pain, altered mental status, abdominal pain women, abdominal pain men, vaginal bleeding, musculoskeletal, weakness, fever, dyspnea, syncope, headache, dizziness, GI bleed, back pain, seizure, CVA, palpatations, mental health)? @ -Differential Abdominal Pain Men: Appendicitis, cholecystitis, diverticulosis, ischemic bowel, pancreatitis, hepatitis, UTI, gastroenteritis, AAA, incarcerated hernia, bowel obstruction, constipation, inflammatory bowel, hepatitis, peptic ulcer disease, splenic infarction, perforated viscus, testicular torsion, this is not meant to be an all-inclusive list EKG interpreted by me (3pts min.). @ -None done X-rays interpreted by me (1pt min.). @ -None done CT interpreted by me (1pt min.). @ -CT of the ab pelvis shows no acute processes U/S interpreted by me (1pt. min.). @ -None done What testing was considered but not performed or refused? (CT, X-rays, U/S, labs)? Why? @ -None What meds were considered but not given or refused? Why? @ -None Was smoking cessation discussed for >3mins.? @ -No Were there social determinants of health that impacted care today? How? (Homelessness, low income, unemployed, alcoholism, drug addiction, transportation, low edu. Level, literacy, decrease access to med. care, [facility], rehab)? @ -No Was there de-escalation of care discussed even if they declined (Discuss DNR or withdrawal of care, Hospice)? DNR status @ -No What co-morbidities impacted this encounter? (DM, HTN, Smoking, COPD, CAD, Cancer, CVA, ARF, Chemo, Hep., AIDS, mental health diagnosis, sleep apnea, morbid obesity)? @ -None Was patient admitted / discharged? Hospital course, mention meds given and route, prescriptions, significant lab abnormalities, going to OR and other pertinent info. @ -57-year-old male presents with abdominal pain. Vital signs upon arrival are within acceptable limits. Laboratory evaluation is within acceptable limits. CT abdomen pelvis shows no acute processes. Patient reevaluated bedside at 2:00 AM found to be in stable condition. Patient for discharge. Did you discuss the management of the patient with other professionals (professionals i.e. , PA, HEEL CURVER, lab, RT, psych nurse, geriatric social worker, aluminum molder, teacher, environmental officer, insurance case manager)? Give summary @ -No Was critical care preformed (if so, how long)? @ -No Undiagnosed new problem with uncertain prognosis? @ -No Drug Therapy requiring intensive monitoring for toxicity (Heparin, Nitro, Insulin, Cardizem)? @ -No Were any procedures done? @ -No Diagnosis/symptom? Acute, or Chronic, or Acute on Chronic? Uncomplicated (without systemic symptoms) or Complicated (systemic symptoms)? @ -Abdominal pain, no high risk features, no obvious source Side effects of treatment? @ -No Exacerbation, Progression, or Severe Exacerbation? @ -No Poses a threat to life or bodily function? How? (Chest pain, USA, DC, pneumonia, PE, COPD, DKA, ARF, appy, cholecystitis, CVA, Diverticulitis, Homicidal, Suicidal, threat to staff... and all critical care pts) @ -No - Lab Data Result diagrams: 09/13/23 23:00 09/13/23 23:00 Lab Results 09/13/23 09/13/23 09/13/23 Range/Units 23:00 23:00 23:00 WBC 13.6 H (3.8-10.6) k/uL RBC 3.82 L (4.30-5.90) m/uL Hgb 12.4 L (13.0-17.5) gm/dL Hct 35.2 L (39.0-53.0) % MCV 92.3 (80.0-100.0) fL MCH 32.5 (25.0-35.0) pg MCHC 35.2 (31.0-37.0) g/dL RDW 13.2 (11.5-15.5) % Plt Count 240 (150-450) k/uL MPV 9.5 Neutrophils % 63 % Lymphocytes % 26 % Monocytes % 7 % Eosinophils % 3 % Basophils % 1 % Neutrophils # 8.6 H (1.3-7.7) k/uL Lymphocytes # 3.5 (1.0-4.8) k/uL Monocytes # 0.9 (0-1.0) k/uL Eosinophils # 0.4 (0-0.7) k/uL Basophils # 0.1 (0-0.2) k/uL Sodium 139 (137-145) mmol/L Potassium 4.0 (3.5-5.1) mmol/L Chloride 107 (98-107) mmol/L Carbon Dioxide 23 (22-30) mmol/L Anion Gap 9 mmol/L BUN 18 (9-20) mg/dL Creatinine 0.74 (0.66-1.25) mg/dL Est GFR (CKD-EPI)AfAm >90 (>60 ml/min/1.73 sqM) Est GFR (CKD-EPI)NonAf >90 (>60 ml/min/1.73 sqM) Glucose 131 H (74-99) mg/dL Plasma Lactic Acid Fredi 1.8 (0.7-2.0) mmol/L Calcium 9.3 (8.4-10.2) mg/dL Total Bilirubin 0.5 (0.2-1.3) mg/dL AST 19 (17-59) U/L ALT 13 (4-49) U/L Alkaline Phosphatase 59 (38-126) U/L Total Protein 6.3 (6.3-8.2) g/dL Albumin 4.0 (3.5-5.0) g/dL Lipase 69 (23-300) U/L Urine Color Urine Appearance (Clear) Urine pH (5.0-8.0) Ur Specific [place] (1.001-1.035) Urine Protein (Negative) Urine Glucose (UA) (Negative) Urine Ketones (Negative) Urine Blood (Negative) Urine Nitrite (Negative) Urine Bilirubin (Negative) Urine Urobilinogen (<2.0) mg/dL Ur Leukocyte Esterase (Negative) 09/14/23 Range/Units 00:20 WBC (3.8-10.6) k/uL RBC (4.30-5.90) m/uL Hgb (13.0-17.5) gm/dL Hct (39.0-53.0) % MCV (80.0-100.0) fL MCH (25.0-35.0) pg MCHC (31.0-37.0) g/dL RDW (11.5-15.5) % Plt Count (150-450) k/uL MPV Neutrophils % % Lymphocytes % % Monocytes % % Eosinophils % % Basophils % % Neutrophils # (1.3-7.7) k/uL Lymphocytes # (1.0-4.8) k/uL Monocytes # (0-1.0) k/uL Eosinophils # (0-0.7) k/uL Basophils # (0-0.2) k/uL Sodium (137-145) mmol/L Potassium (3.5-5.1) mmol/L Chloride (98-107) mmol/L Carbon Dioxide (22-30) mmol/L Anion Gap mmol/L BUN (9-20) mg/dL Creatinine (0.66-1.25) mg/dL Est GFR (CKD-EPI)AfAm (>60 ml/min/1.73 sqM) Est GFR (CKD-EPI)NonAf (>60 ml/min/1.73 sqM) Glucose (74-99) mg/dL Plasma Lactic Acid Fredi (0.7-2.0) mmol/L Calcium (8.4-10.2) mg/dL Total Bilirubin (0.2-1.3) mg/dL AST (17-59) U/L ALT (4-49) U/L Alkaline Phosphatase (38-126) U/L Total Protein (6.3-8.2) g/dL Albumin (3.5-5.0) g/dL Lipase (23-300) U/L Urine Color Colorless Urine Appearance Clear (Clear) Urine pH 6.0 (5.0-8.0) Ur Specific [place] 1.014 (1.001-1.035) Urine Protein Negative (Negative) Urine Glucose (UA) Negative (Negative) Urine Ketones Negative (Negative) Urine Blood Negative (Negative) Urine Nitrite Negative (Negative) Urine Bilirubin Negative (Negative) Urine Urobilinogen <2.0 (<2.0) mg/dL Ur Leukocyte Esterase Negative (Negative) Disposition Clinical Impression: Abdominal pain Disposition: HOME SELF-CARE Condition: Good Instructions (If sedation given, give patient instructions): Abdominal Pain (ED) Is patient prescribed a controlled substance at d/c from ED?: No Referrals: Rosy Yousif MD [Primary Care Provider] - 1-2 days Time of Disposition: 02:02
[2023-09-13] MEDS: SODIUM CHLORIDE 0.9% 1,000 ML IV STA (23:17)
[2023-09-13 23:38] LABS: ALT 13 U/L (4-49); AST 19 U/L (17-59); African American GFR (CKD) >90 (>60 ml/min/1.73 sqM); Alkaline Phosphatase 59 U/L (38-126); Anion Gap 9 mmol/L; Blood Urea Nitrogen 18 mg/dL (9-20); Calcium 9.3 mg/dL (8.4-10.2); Carbon Dioxide 23 mmol/L (22-30); Chloride 107 mmol/L (98-107); Glucose 131 mg/dL (74-99); Lipase 69 U/L (23-300); Non-African American GFR(CKD) >90 (>60 ml/min/1.73 sqM); Sodium 139 mmol/L (137-145); Total Bilirubin 0.5 mg/dL (0.2-1.3); Total Protein 6.3 g/dL (6.3-8.2)
[2023-09-13 23:49] LABS: Basophils # (A) 0.1 k/uL (0-0.2); Basophils % (A) 1 %; Eosinophils # (A) 0.4 k/uL (0-0.7); Eosinophils % (A) 3 %; HCT 35.2 % (39.0-53.0); HGB 12.4 gm/dL (13.0-17.5); Lymphocytes # (A) 3.5 k/uL (1.0-4.8); Lymphocytes % (A) 26 %; MCH 32.5 pg (25.0-35.0); MCHC 35.2 g/dL (31.0-37.0); MCV 92.3 fL (80.0-100.0); Mean Platelet Volume 9.5; Monocytes # (A) 0.9 k/uL (0-1.0); Monocytes % (A) 7 %; Neutrophils # (A) 8.6 k/uL (1.3-7.7); Neutrophils % (A) 63 %; Platelet Count 240 k/uL (150-450); RBC 3.82 m/uL (4.30-5.90); RDW 13.2 % (11.5-15.5); WBC 13.6 k/uL (3.8-10.6)
[2023-09-14 00:33] LABS: Appearance,Urine Clear (Clear); Bilirubin,Urine Negative (Negative); Blood,Urine Negative (Negative); Color,Urine Colorless; Glucose,Urine (UA) Negative (Negative); Ketones,Urine Negative (Negative); Leukocyte Esterase,Urine Negative (Negative); Nitrite,Urine Negative (Negative); Protein,Urine Negative (Negative); Specific Gravity,Urine 1.014 (1.001-1.035); Urobilinogen,Urine <2.0 mg/dL (<2.0)
[2023-09-14 00:46] VITALS: TEMP 98.1
--- NOTE | 2023-09-14 01:54 | CT ---
EXAM: CT Abdomen and Pelvis With Intravenous Contrast CLINICAL HISTORY: from a care home for abdominal pain that started after eating spaghetti for dinner. TECHNIQUE: Axial computed tomography images of the abdomen and pelvis with intravenous contrast. CTDI is 23.9 mGy and DLP is 1054.8 mGy-cm. This CT exam was performed using one or more of the following dose reduction techniques: automated exposure control, adjustment of the mA and/or kV according to patient size, and/or use of iterative reconstruction technique. Coronal and sagittal reformatted images were created and reviewed. 423 images COMPARISON: No relevant prior studies available. FINDINGS: Lung bases: Unremarkable. No mass. No consolidation. Heart: Trace of anterior pericardial effusion is nonspecific. ABDOMEN: Liver: Unremarkable. No mass. Gallbladder and bile ducts: Unremarkable. No calcified stones. No ductal dilation. Pancreas: Unremarkable. No mass. No ductal dilation. Spleen: Unremarkable. No splenomegaly. Adrenals: Unremarkable. No mass. Kidneys and ureters: 1 mm nodule at the mid pole right renal stone. Subcentimeter left renal cyst, too small to characterize. Moderate amount of stool in the colon. No hydronephrosis. Stomach and bowel: See above. PELVIS: Appendix: Normal appendix. Bladder: Unremarkable. No mass. Reproductive: Unremarkable as visualized. ABDOMEN and PELVIS: Intraperitoneal space: Unremarkable. No free air. No significant fluid collection. Bones/joints: Old left 12th rib fracture. Moderate degenerative changes. Soft tissues: Unremarkable. Vasculature: Small amount of atherosclerotic calcifications. No abdominal aortic aneurysm. Lymph nodes: Unremarkable. No enlarged lymph nodes. IMPRESSION: No acute findings in the abdomen or pelvis. Trace of anterior pericardial effusion is nonspecific
[2023-09-14 02:14] VITALS: BP 104/68; PULSE 58; RESP 16
== END 2023-09-14 02:20 | disposition home or self-care (01) ==
LOC: EC 21:57
DX: I31.39 Other pericardial effusion (noninflammatory) (principal); F17.200 Nicotine dependence, unspecified, uncomplicated
CPT/HCPCS: 36415; 93005; 80053; 83605; 83690; 85025; 81003; 74177; 99285; 96360; Q9967

== ENCOUNTER 2023-09-18 08:48 | Emergency (ER) | payer OTHER ==
[2023-09-18 09:01] VITALS: TEMP 98.3
[2023-09-18 09:05] LABS: Glucose,Whole Blood 104 mg/dL (70-110)
[2023-09-18] MEDS: SODIUM CHLORIDE 0.9% 500 ML 500 ML IV STA (09:20)
[2023-09-18] MEDS: SODIUM CHLORIDE 0.9% 1,000 ML IV STA (09:20)
[2023-09-18 09:30] LABS: Basophils # (A) 0.1 k/uL (0-0.2); Basophils % (A) 1 %; Eosinophils # (A) 0.5 k/uL (0-0.7); Eosinophils % (A) 4 %; HCT 39.4 % (39.0-53.0); HGB 13.3 gm/dL (13.0-17.5); Lymphocytes # (A) 3.5 k/uL (1.0-4.8); Lymphocytes % (A) 29 %; MCH 31.7 pg (25.0-35.0); MCHC 33.7 g/dL (31.0-37.0); MCV 93.9 fL (80.0-100.0); Mean Platelet Volume 8.3; Monocytes # (A) 0.7 k/uL (0-1.0); Monocytes % (A) 6 %; Neutrophils # (A) 6.8 k/uL (1.3-7.7); Neutrophils % (A) 57 %; Platelet Count 222 k/uL (150-450); RDW 13.2 % (11.5-15.5); WBC 11.9 k/uL (3.8-10.6)
[2023-09-18 09:37] LABS: INR 0.9 (<1.2); Partial Thromboplastin Time 24.5 sec (22.0-30.0); Prothrombin Time 10.5 sec (10.0-12.5)
[2023-09-18 09:38] LABS: ALT 13 U/L (4-49); African American GFR (CKD) >90 (>60 ml/min/1.73 sqM); Albumin 4.4 g/dL (3.5-5.0); Anion Gap 9 mmol/L; Blood Urea Nitrogen 10 mg/dL (9-20); Calcium 9.4 mg/dL (8.4-10.2); Carbon Dioxide 19 mmol/L (22-30); Chloride 113 mmol/L (98-107); Glucose 100 mg/dL (74-99); Non-African American GFR(CKD) >90 (>60 ml/min/1.73 sqM); Sodium 141 mmol/L (137-145); Total Bilirubin 0.8 mg/dL (0.2-1.3); Total Protein 6.8 g/dL (6.3-8.2)
[2023-09-18 09:50] LABS: AST 25 U/L (17-59); Alkaline Phosphatase 62 U/L (38-126); Magnesium 2.1 mg/dL (1.6-2.3); Potassium 4.7 mmol/L (3.5-5.1)
--- NOTE | 2023-09-18 09:51 | ED ---
General Adult HPI - General Chief complaint: Syncope Stated complaint: Syncope Time Seen by Provider: 09/18/23 08:51 Source: patient, EMS, RN notes reviewed Mode of arrival: EMS Limitations: no limitations - History of Present Illness Initial comments: 57-year-old male presents emergency department with chief complaint of syncopal episode. Patient presents from [facility] home via EMS. Patient has been having multiple episodes of syncope has been evaluated inpatient and by cardiology has a Holter monitor on. He has no complaints other than facial injury. Patient states that he feels like his nose is broken. His tetanus up-to-date. Denies any chest pain extremity injuries no focal weakness. - Related Data Home Medications Medication Instructions Recorded Confirmed risperiDONE [RisperDAL] 2 mg PO BID@0800,199908/06/23 09/18/23 traZODone HCL [Desyrel] 50 mg PO HS PRN 08/06/23 09/18/23 Atorvastatin [Lipitor] 40 mg PO DAILY@0800 08/25/23 09/18/23 Benztropine Mesylate [Cogentin] 0.5 mg PO BID@0800,199908/25/23 09/18/23 Cyanocobalamin (Vitamin B-12) 500 mcg PO DAILY@0800 09/18/23 09/18/23 [Vitamin B-12] Folic Acid 1 mg PO DAILY@0800 09/18/23 09/18/23 Allergies Allergy/AdvReac Type Severity Reaction Status Date / Time No Known Allergies Allergy Verified 09/13/23 22:06 Review of Systems ROS Statement: Those systems with pertinent positive or pertinent negative responses have been documented in the HPI. ROS Other: All systems not noted in ROS Statement are negative. Past Medical History Past Medical History: Hyperlipidemia, Syncope Additional Past Medical History / Comment(s): UTI, Urinary retention History of Any Multi-Drug Resistant Organisms: None Reported Past Surgical History: No Surgical Hx Reported Past Anesthesia/Blood Transfusion Reactions: No Reported Reaction Past Psychological History: Bipolar, Depression Smoking Status: Current every day smoker Past Alcohol Use History: None Reported Past Drug Use History: None Reported - Past Family History Mother History Unknown: Yes General Exam Limitations: no limitations General appearance: alert, in no apparent distress Head exam: Present: atraumatic, normocephalic, normal inspection Eye exam: Present: normal appearance, PERRL, EOMI. Absent: scleral icterus, conjunctival injection, periorbital swelling ENT exam: Present: normal exam, normal oropharynx, mucous membranes moist Neck exam: Present: normal inspection. Absent: tenderness, meningismus, full ROM (Patient in c-collar), lymphadenopathy Respiratory exam: Present: normal lung sounds bilaterally. Absent: respiratory distress, wheezes, rales, rhonchi, stridor Cardiovascular Exam: Present: regular rate, normal rhythm, normal heart sounds. Absent: systolic murmur, diastolic murmur, rubs, gallop, clicks GI/Abdominal exam: Present: soft, normal bowel sounds. Absent: distended, tenderness, guarding, rebound, rigid Neurological exam: Present: alert, oriented X3, CN II-XII intact, reflexes n ormal. Absent: motor sensory deficit Skin exam: Present: warm, dry, intact, normal color. Absent: rash Course Vital Signs 09/18/23 09/18/23 09/18/23 08:52 10:00 10:45 Temperature 98.3 F Pulse Rate 66 50 L 54 L Respiratory 18 17 17 Rate Blood Pressure 95/73 111/81 102/73 O2 Sat by Pulse 97 99 100 Oximetry 09/18/23 09/18/23 09/18/23 11:15 11:30 12:00 Temperature Pulse Rate 51 L 51 L 60 Respiratory 17 18 17 Rate Blood Pressure 126/82 132/79 108/95 O2 Sat by Pulse 100 99 100 Oximetry EKG Findings - EKG Comments: EKG Findings:: EKG performed at 9: 08 sinus bradycardia rate of 57 MS 156 QRS 87 QT/QTc 440/434 - EKG Results: EKG: interpreted by JEET Medical Decision Making - Medical Decision Making Was pt. sent in by a medical professional or institution (, PA, BAR POINTER, urgent care, hospital, or penitentiary...) When possible be specific @ -No Did you speak to anyone other than the patient for history (EMS, parent, family, police, friend...)? What history was obtained from this source @ -No Did you review nursing and triage notes (agree or disagree)? Why? @ -I reviewed and agree with nursing and triage notes Were old charts reviewed (outside hosp., previous admission, EMS record, old EKG, old radiological studies, urgent care reports/EKG's, penitentiary records)? Report findings @ -Reviewed recent inpatient laboratory studies including CBC comp, EKG, cardiology evaluation Differential Diagnosis (chest pain, altered mental status, abdominal pain women, abdominal pain men, vaginal bleeding, weakness, fever, dyspnea, syncope, headache, dizziness, GI bleed, back pain, seizure, CVA, palpatations, mental health, musculoskeletal)? @Differential Syncope: Valvular disease, hypertrophic cardiomyopathy, pulmonary embolism, tamponade, tachycardia, bradycardia, CA, hypovolemia, hemorrhage, dissection, anemia, intracranial hemorrhage, seizure, hypoglycemia, carbon monoxide poisoning, this is not meant to be an all-inclusive list. EKG interpreted by me (3pts min.). @ -As above X-rays interpreted by me (1pt min.). @ -X-ray chest no acute cardiopulmonary process CT interpreted by me (1pt min.). @ -CT, C-spine and facial bones no acute fracture or malalignment, cervical fracture, intracranial hemorrhage or mass effect U/S interpreted by me (1pt. min.). @ -None done What testing was considered but not performed or refused? (CT, X-rays, U/S, labs)? Why? @ -None What meds were considered but not given or refused? Why? @ -None Did you discuss the management of the patient with other professionals (professionals i.e. , PA, BAR POINTER, lab, RT, psych nurse, social service assistant, it program auditor, teacher, house officer, family preservation caseworker)? Give summary @ -No Was smoking cessation discussed for >3mins.? @ -No Was critical care preformed (if so, how long)? @ -No Were there social determinants of health that impacted care today? How? (Homelessness, low income, unemployed, alcoholism, drug addiction, transportation, low edu. Level, literacy, decrease access to med. care, custodial, rehab)? @ -No Was there de-escalation of care discussed even if they declined (Discuss DNR or withdrawal of care, Hospice)? DNR status @ -No What co-morbidities impacted this encounter? (DM, HTN, Smoking, COPD, CAD, Cancer, CVA, ARF, Chemo, Hep., AIDS, mental health diagnosis, sleep apnea, morbid obesity)? @ -None Was patient admitted / discharged? Hospital course, mention meds given and route, prescriptions, significant lab abnormalities, going to OR and other pertinent info. @ -[Discharge patient presented after syncopal episode this has been a recurrent issue. Patient has been follow-up with cardiology. He has a Holter monitor on he has no complaints patient offered admission patient declined stating that this is under current review. Patient does have bradycardia though this is evident on prior evaluations. Undiagnosed new problem with uncertain prognosis? @ -No Drug Therapy requiring intensive monitoring for toxicity (Heparin, Nitro, Insulin, Cardizem)? @ -No Were any procedures done? @ -No Diagnosis/symptom? @ -Syncope, facial contusion Acute, or Chronic, or Acute on Chronic? @ -Acute Uncomplicated (without systemic symptoms) or Complicated (systemic symptoms)? @ -Complicated Side effects of treatment? @ -No Exacerbation, Progression, or Severe Exacerbation? @ -No Poses a threat to life or bodily function? How? (Chest pain, USA, CA, pneumonia, PE, COPD, DKA, ARF, appy, cholecystitis, CVA, Diverticulitis, Homicidal, Suicidal, threat to staff... and all critical care pts) @ -No - Lab Data Result diagrams: 09/18/23 09:16 09/18/23 09:16 Lab Results 09/18/23 09/18/23 09/18/23 Range/Units 09:03 09:16 09:16 WBC 11.9 H (3.8-10.6) k/uL RBC 4.20 L (4.30-5.90) m/uL Hgb 13.3 (13.0-17.5) gm/dL Hct 39.4 (39.0-53.0) % MCV 93.9 (80.0-100.0) fL MCH 31.7 (25.0-35.0) pg MCHC 33.7 (31.0-37.0) g/dL RDW 13.2 (11.5-15.5) % Plt Count 222 (150-450) k/uL MPV 8.3 Neutrophils % 57 % Lymphocytes % 29 % Monocytes % 6 % Eosinophils % 4 % Basophils % 1 % Neutrophils # 6.8 (1.3-7.7) k/uL Lymphocytes # 3.5 (1.0-4.8) k/uL Monocytes # 0.7 (0-1.0) k/uL Eosinophils # 0.5 (0-0.7) k/uL Basophils # 0.1 (0-0.2) k/uL PT 10.5 (10.0-12.5) sec INR 0.9 (<1.2) APTT 24.5 (22.0-30.0) sec Sodium (137-145) mmol/L Potassium (3.5-5.1) mmol/L Chloride (98-107) mmol/L Carbon Dioxide (22-30) mmol/L Anion Gap mmol/L BUN (9-20) mg/dL Creatinine (0.66-1.25) mg/dL Est GFR (CKD-EPI)AfAm (>60 ml/min/1.73 sqM) Est GFR (CKD-EPI)NonAf (>60 ml/min/1.73 sqM) Glucose (74-99) mg/dL POC Glucose (mg/dL) 104 (70-110) mg/dL POC Glu Oncology Specialist ID Carla Frazier Calcium (8.4-10.2) mg/dL Magnesium (1.6-2.3) mg/dL Total Bilirubin (0.2-1.3) mg/dL AST (17-59) U/L ALT (4-49) U/L Alkaline Phosphatase (38-126) U/L Troponin I (0.000-0.034) ng/mL Total Protein (6.3-8.2) g/dL Albumin (3.5-5.0) g/dL 09/18/23 09/18/23 Range/Units 09:16 09:16 WBC (3.8-10.6) k/uL RBC (4.30-5.90) m/uL Hgb (13.0-17.5) gm/dL Hct (39.0-53.0) % MCV (80.0-100.0) fL MCH (25.0-35.0) pg MCHC (31.0-37.0) g/dL RDW (11.5-15.5) % Plt Count (150-450) k/uL MPV Neutrophils % % Lymphocytes % % Monocytes % % Eosinophils % % Basophils % % Neutrophils # (1.3-7.7) k/uL Lymphocytes # (1.0-4.8) k/uL Monocytes # (0-1.0) k/uL Eosinophils # (0-0.7) k/uL Basophils # (0-0.2) k/uL PT (10.0-12.5) sec INR (<1.2) APTT (22.0-30.0) sec Sodium 141 (137-145) mmol/L Potassium 4.7 (3.5-5.1) mmol/L Chloride 113 H (98-107) mmol/L Carbon Dioxide 19 L (22-30) mmol/L Anion Gap 9 mmol/L BUN 10 (9-20) mg/dL Creatinine 0.52 L (0.66-1.25) mg/dL Est GFR (CKD-EPI)AfAm >90 (>60 ml/min/1.73 sqM) Est GFR (CKD-EPI)NonAf >90 (>60 ml/min/1.73 sqM) Glucose 100 H (74-99) mg/dL POC Glucose (mg/dL) (70-110) mg/dL POC Glu Oncology Specialist ID Calcium 9.4 (8.4-10.2) mg/dL Magnesium 2.1 (1.6-2.3) mg/dL Total Bilirubin 0.8 (0.2-1.3) mg/dL AST 25 (17-59) U/L ALT 13 (4-49) U/L Alkaline Phosphatase 62 (38-126) U/L Troponin I <0.012 (0.000-0.034) ng/mL Total Protein 6.8 (6.3-8.2) g/dL Albumin 4.4 (3.5-5.0) g/dL Disposition Clinical Impression: Syncope Disposition: HOME SELF-CARE Condition: Stable Instructions (If sedation given, give patient instructions): Syncope (ED) Additional Instructions: Please return to the Emergency Department if symptoms worsen or any other concerns. Is patient prescribed a controlled substance at d/c from ED?: No Referrals: Rosy Yousif MD [Primary Care Provider] - 1-2 days Time of Disposition: 12:10
--- NOTE | 2023-09-18 10:45 | CT ---
EXAMINATION TYPE: CT facial bones wo con DATE OF EXAM: 09/18/2023 COMPARISON: None HISTORY: fall CT DLP: 400 mGycm CONTRAST: 0 mL of Isovue 300 The paranasal sinuses are examined in the axial plane at 2 mm thick sections. Reconstructed images i n the coronal plane were obtained. There is dental amalgam scatter artifact Retention cysts within the left maxillary sinus. There is an air-fluid level within the right maxilla ry sinus. Diffuse mucosal thickening is through the ethmoid air cells. Retention cyst within the an terior lateral right sphenoid sinus. No mucosal thickening is within the right frontal sinus. The septum is evaluated. There is septal deviation to the right. The ostiomeatal units are patent. Some mucosal thickening is present causing narrowing present bilate rally Mastoid air cells are clear IMPRESSION: 1. No acute posttraumatic change is identified. 2. Clinical consideration for chronic pansinusitis. Acute right maxillary sinusitis should be conside red.
--- NOTE | 2023-09-18 10:48 | CT ---
EXAMINATION TYPE: CT brain jalyn wo con DATE OF EXAM: 09/18/2023 COMPARISON: None HISTORY: fall, syncope CT DLP: 691.9 mGycm, Automated exposure control for dose reduction was used. CONTRAST: None CT of the brain is performed utilizing 3 mm thick sections through the posterior fossa and 3 mm thick sections through the remaining calvarium. Study is performed within 24 hours of arrival to the hospital. No abnormal hyperdensity is present to suggest an acute intracranial hemorrhage. No mass lesion is evident. No acute infarcts are evident. Ventricles and sulci are appropriate for the patient age. Paranasal sinus mucosal thickening discussed in facial bone study. IMPRESSIONS: 1. No acute intracranial process. Follow-up MRI can be performed as clinically indicated. CT cervical spine. COMPARISON: None CT of the cervical spine is performed in the axial plane at 2 mm thick sections. Reconstructed image s in the coronal, and sagittal plane are reviewed on the computer. No acute fractures are evident. Vertebral body alignment is normal. Prevertebral space posterior spinal lamellar line is intact. Note is made of anterior vertebral body posterior endplate spurring C5-C6. Disc heights are preserved. Vertebral body heights are preserved. No spinal canal stenosis present. Some mild left paracentral endplate spurring at C6 has mild anterio r thecal sac compression. Some mild endplate spurring is also present in the left paracentral region at C6-7 without spinal canal stenosis. Uncovertebral joint hypertrophy at C6-7 has mild foraminal stenosis IMPRESSION: 1. Endplate spurring in the left paracentral region without spinal canal stenosis C5-6 and C6-7. 2. Mild foraminal narrowing C6-7 3. No acute osseous abnormality.
--- NOTE | 2023-09-18 11:37 | XR ---
EXAMINATION TYPE: XR chest 2V DATE OF EXAM: 09/18/2023 COMPARISON: 08/25/2023 HISTORY: 57-year-old male syncope, confusion, altered mental status TECHNIQUE: AP and lateral views FINDINGS: Heart upper limits of normal in size. Aorta and prominent vasculature within normal limits. Mild inte rstitial prominence is unchanged. No consolidation or pleural effusion. IMPRESSION: Chronic changes. No acute process seen.
[2023-09-18 12:28] VITALS: BP 108/95; PULSE 60; RESP 17
== END 2023-09-18 12:43 | disposition home or self-care (01) ==
LOC: EC 08:48
DX: R55 Syncope and collapse (principal); R00.1 Bradycardia, unspecified; F17.200 Nicotine dependence, unspecified, uncomplicated
CPT/HCPCS: 36415; 93005; 80053; 83735; 84484; 85025; 85610; 85730; 71046; 72125; 70486; 70450; 99285; 96360; L0120